=== PATIENT | female | born 1985 | race Caucasian/White ===

== ENCOUNTER 2019-08-06 07:15 | Emergency (ER) | payer MEDICAID, SELFPAY | END 2019-08-06 12:37 | disposition admitted as inpatient to this hospital (09) | LOC: ER 10-09 13:47 | PROVIDERS: Emergency Provider Physician Assistant; Family Provider Family Medicine | DX: F23 Brief psychotic disorder (principal); E87.6 Hypokalemia; F15.10 Other stimulant abuse, uncomplicated; F17.200 Nicotine dependence, unspecified, uncomplicated | CPT/HCPCS: 36415; 80053; 80305; 80307; 81003; 83735; 84703; 85025; 93005; 96372; 99281; 99285; J1200; J2060; J3486 ==

== ENCOUNTER 2019-08-06 07:15 | Inpatient (IN) | payer MEDICAID, SELFPAY ==
[2019-08-06 07:11] VITALS: BP 133/101; PULSE 101; RESP 20; TEMP 36.8; O2SAT 97; BMI 24.3
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
[2019-08-06] MEDS: diphenhydrAMINE 50 mg/mL SDV 1mL IM (07:51)
[2019-08-06] MEDS: LORazepam 2 mg/mL INJ 1 mL IM (07:52)
[2019-08-06] MEDS: ziprasidone 20 mg/mL SDV 10 MG IM (07:52)
[2019-08-06] MEDS: water for injection-sterile 10 ML (07:53)
[2019-08-06 08:03] LABS: Add Urine Microscopic? NO
[2019-08-06 08:08] LABS: Bilirubin Urine Neg (NEGATIVE); Blood Urine Neg (Negative); Glucose Urine UA Norm (Normal); Ketones Urine Negative (Negative); Leukocyte Esterase Urine Negative (Negative); Nitrate Urine Negative (Negative); Protein Urine Neg (Negative); Sulfosalicylic Acid Urine Negative; Urine Appearance Clear (CLEAR); Urine Color Straw (Yellow); Urobilinogen Urine Norm (Negative)
[2019-08-06 08:12] LABS: Amphetamines Screen Urine Negative (Negative); Barbiturates Screen Urine Negative (Negative); Benzodiazepines Screen Urine Negative (Negative); Cocaine Screen Urine Negative (Negative); Methamphetamines Urine Screen Negative (Negative); Methylenedioxymethamphetamine Negative (Negative); Opiate Screen Urine Negative (Negative); Opiate Urine Negative (Negative); PCP Screen Urine Negative (Negative); THC Screen Urine Negative (Negative); Tricyclic Antidepressants UR Negative (Negative)
[2019-08-06 08:55] LABS: Basophils % 0.4 %; Eosinophils # 0.1 10^3/uL (0.0-0.8); Eosinophils % 1.9 %; Hematocrit 36.5 % (37.0-47.0); Hemoglobin 12.2 g/dL (11.5-15.3); Lymphocytes % 20.8 %; Mean Corpuscular HGB Conc 33.4 g/dL (30.0-36.0); Mean Corpuscular Volume 89.7 fL (81-99); Mean Platelet Volume 9.1 fL (7.4-10.4); Monocytes # 0.4 10^3/uL (0.2-0.9); Monocytes % 7.9 %; Neutrophils # 3.3 10^3/uL (1.8-7.7); Nucleated Red Blood Cells % 0 %; Platelet Count 260 10^3/cmm (130-400); Red Blood Count 4.07 10^6/uL (4.1-5.3); Red Cell Distribution Width 11.2 % (12.1-15.1); White Blood Count 4.7 10^3/uL (4.0-10.0)
[2019-08-06 09:09] LABS: Alanine Aminotransferase 36 U/L (0-33); Albumin Level 3.7 g/dL (3.5-5.2); Alkaline Phosphatase 67 IU/L (35-105); Anion Gap 14.9 (5-19); Aspartate Amino Transferase 39 U/L (0-32); Blood Urea Nitrogen 12 mg/dL (6-20); Carbon Dioxide 24 mmol/L (22-29); Chloride 100 mmol/L (98-107); Globulin 2.8 g/dL (1.3-4.6); Glomerular Filtration Rate 181.6 mL/min (90-130); Glucose 124 mg/dL (74-109); Potassium 2.9 mmol/L (3.5-5.1); Sodium 136 mmol/L (136-145); Total Bilirubin 0.5 mg/dL (0.15-1.2); Total Protein 6.5 g/dL (6.6-8.7)
[2019-08-06 09:30] LABS: Acetaminophen < 5.0 ug/mL (10-30); Alcohol Level < 10 mg/dL (0-10); Salicylate < 0.3 mg/dL (3-10)
[2019-08-06 09:35] LABS: Magnesium 1.9 mg/dL (1.7-2.3)
--- NOTE | 2019-08-06 09:36 | ECG_ITS ---
Measurements Intervals [place] Rate: 73 P: 66 [place]: 148 QRS: 36 QRSD: 98 T: 48 QT: 455 QTc: 504 SINUS RHYTHM WITH MARKED SINUS ARRHYTHMIA LEFT ATRIAL ENLARGEMENT [-0.15mV P WAVE IN V1/V2] POSSIBLE RIGHT VENTRICULAR CONDUCTION DELAY [RSR (QR) IN V1/V2] PROLONGED QT INTERVAL Compared to ECG 04/07/2015 20:19:27 Prolonged QT interval now present Electronically Signed On 08-06-2019 22:07:55 COMMERCIAL FINANCE ANALYST by Gloria Mcbride M.D. [email or web address]
[2019-08-06 11:36] VITALS: BP 114/80; PULSE 84; RESP 12; O2SAT 96
--- NOTE | 2019-08-06 13:18 | PC.SOCIAL ---
18 month old daughter, Isela Sierra, was picked up in the Emergency Room by DFS.
[2019-08-06 14:00] VITALS: BP 92/56; PULSE 84; RESP 18; TEMP 36.3; O2SAT 94
[2019-08-06 14:05] LABS: HCG, Serum Qual Negative (Negative)
--- NOTE | 2019-08-06 17:07 | PC.SOCIAL ---
[facility]: Jazmine Reveles with CPS on unit. She reports she will return tomorrow to have her sign releases for them. She would like to have a hair follicle test done, they use [facility], and needed to know the procedure for having this done on the unit. Send e-mail to loading unit tool setter Christian to find this out. Informed Jazmine I would contact her with this information when I found out. Jazmine [phone].
--- NOTE | 2019-08-06 17:26 | PC.NURSE ---
WHEN PT ARRIVED ON UNIT FROM ER,VICE PRESIDENT OF OPERATIONS AND OTHER STAFF REMOVED PAPER SCRUBS AND NOTED WHEN VICE PRESIDENT OF OPERATIONS DID SKIN ASSESSMENT.PULLED UNDERWEAR DOWN TO CHECK SKIN AND NOTED A CLEAR BOTTLE THAT HAD WHAT APPEARED TO BE URINE IN IT. MADE AND ORACLE DRM CONSULTANT TOMAS BUCIO AWARE. PLACED CONTAINER IN A URINE BAG,AND PLACED IN PT BELONGINGS.
[2019-08-06 21:13] VITALS: BP 102/69; PULSE 97; RESP 16; TEMP 36.4; O2SAT 97
[2019-08-07 06:00] VITALS: BP 128/75; PULSE 68; RESP 19; TEMP 36.6
[2019-08-07 08:31] LABS: Barbiturates Screen Urine Negative (Negative); Benzodiazepines Screen Urine Positive (Negative); Cocaine Screen Urine Negative (Negative); Opiate Screen Urine Negative (Negative); PCP Screen Urine Negative (Negative); THC Screen Urine Negative (Negative)
[2019-08-07 08:35] LABS: Amphetamines Screen Urine Positive (Negative)
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
[2019-08-07 14:00] VITALS: BP 94/56; PULSE 84; RESP 20; TEMP 36.9; O2SAT 95
[2019-08-07] MEDS: buprenorphine-naloxone 4-1 mg Film 2 EACH SUBLINGUAL ×2 (15:17→20:57)
[2019-08-07] MEDS: duloxetine 60 mg Capsule PO (17:18)
[2019-08-07 19:52] VITALS: BP 86/51; PULSE 84; RESP 16; TEMP 36.9; O2SAT 96
[2019-08-07] MEDS: doxepin 50 mg Capsule 100 MG PO (20:57)
[2019-08-08 06:00] VITALS: BP 103/68; PULSE 83; RESP 15; TEMP 36.9; O2SAT 97
[2019-08-08] MEDS: duloxetine 60 mg Capsule PO ×2 (09:42→18:14)
[2019-08-08] MEDS: buprenorphine-naloxone 4-1 mg Film 2 EACH SUBLINGUAL ×3 (09:45→21:59)
[2019-08-08 14:00] VITALS: BP 115/69; PULSE 72; RESP 18; TEMP 37; O2SAT 98
--- NOTE | 2019-08-08 14:30 | P.PN_ITS ---
Subjective NPU Subjective: Interval history: I've never been so tired in my life. Cannot have some Adderall. We prescribed it for me over [place]. It would help wake up. Patient also complains about severe lower back pain that is new. She does not know the etiology but just hurts her severely. Vitals/I&O/Wt Last Vital Signs Temp 98.4 F 08/08/19 06:00 Pulse 83 08/08/19 06:00 Resp 15 08/08/19 06:00 BP 103/68 08/08/19 06:00 Pulse Ox 97 08/08/19 06:00 Data NPU : 08/06/19 08:46 08/06/19 08:46 A&P Additional A&P Information Mental Status Exam: Patient is ushered in by staff. Her gait is wobbly and uncertain. It is however symmetric and there are no gross neurological deficits. She is disheveled. She is wearing the same clothing is yesterday. Eye contact is fleeting. She is malodorous. She is not believed to be a reliable informant due to her degree of confusion. Appearance: hygiene is fair; no gross neurological deficits., Speech: Speech is Mumbled. She is difficult to understand. Thought processes: Thought processes are [place]. Judgment is not adequate for safety. She perseverates on the events of the day. Psychotic processes: There is no indication of guarding or paranoia. There is no attention to the internal stimuli. Auditory and visual hallucinations are denied. Judgment: Insight is fair. Problem solving skills are Not adequate for safety. Orientation: The patient is oriented to Herself, the fact that she is in the hospital. And vaguely to time. Memory: She was incapable of engaging in an assessment of her memory. Attention: The patient is alert and Marginally interpersonally engaged. Language: Verbalizations are Somewhat coherent But she is unable to hold a con versation. Fund of knowledge: Fund of knowledge is Poor Affect/Mood: Affect is Irritable with a Unknown mood. Denied suicidal ideation Affective range Constricted Psychosis: perception And reality testing are both severely impaired Diagnoses:Delirium?etiology unknown Amphetamine intoxication Benzodiazepine intoxication Opiate abuse?presumptive Assessment:At this time we are unsure about the nature of her mental illness. We have records that she has been treated recently with a combination of Suboxone, ondansetron, Valium, and Adderall shortly. only Suboxone prescription appears to be active. Treatment plan: Due to the psychiatric conditions and treatment listed in the Assessment and Plan - the patient requires continued hospitalization. Will provide a safe and therapeutic environment for patient.. Will continue inpatient treatment to allow for medication adjustment and monit oring. Will continue q15 min safety checks. Hospital day #2Will primarily treat her symptomatically for signs of amphetamine withdrawal.W ill continue Suboxone and monitor for medication side effects. Monitor patient's mood, sleep, appetite, and behavior closely. Hospital day #3: Patient informed that she would not be receiving Adderall or any stimulant while in the hospital unit. Tylenol replaced with ibuprofen 400 mg every 6 hours when necessary. Encourage patient to participate in individual and group therapeutic sessions on the valiente. Estimated length of stay 5 days The expected benefits and potential side effects of patient's psychiatric medications were discussed with the patient. The patient understands and consents to treatment.CRITERIA FOR DISCHARGE: stable on medications and no longer an im Involuntary Hold Information 96 Hour Hold: 96 Hour Involuntary Admission: Yes 96 Hour Hold Ending Date: 08/12/19 96 Hour Hold Ending Time: 09:30 Attestations NPU Medical Necessity Statement*: Facial remain in the hospital 5 days until the completion of her 96 hour involuntary commitment. Coding Level of Care Code Acute Substitute Teacher for Betsy Ahmadi
[2019-08-08] MEDS: ibuprofen 600 mg Tablet PO (15:27)
--- NOTE | 2019-08-08 16:34 | PC.SOCIAL ---
According to CPS they no longer have custody of child, juvenile office does. This being the case when patient is discharged she has the authority to go and vegetable picker the child as she currently has custody. Per CPS the Juvenile Office said without medical records they had insufficient evidence to keep her from picking up the baby.
[2019-08-08 21:21] VITALS: BP 117/78; PULSE 62; RESP 18; TEMP 36.9; O2SAT 95
[2019-08-08] MEDS: doxepin 50 mg Capsule 100 MG PO (21:58)
[2019-08-09 06:19] VITALS: BP 122/81; PULSE 65; RESP 17; TEMP 36.6; O2SAT 95
[2019-08-09] MEDS: buprenorphine-naloxone 4-1 mg Film 2 EACH SUBLINGUAL ×3 (10:00→21:19)
[2019-08-09] MEDS: duloxetine 60 mg Capsule PO ×2 (10:00→18:07)
[2019-08-09 14:00] VITALS: BP 106/68; PULSE 82; RESP 18; TEMP 37.2; O2SAT 96
[2019-08-09 20:57] VITALS: BP 128/80; PULSE 89; RESP 18; TEMP 36.9; O2SAT 95
[2019-08-09] MEDS: doxepin 50 mg Capsule 100 MG PO (21:18)
[2019-08-10 06:00] VITALS: BP 112/73; PULSE 73; RESP 20; TEMP 36.3; O2SAT 97
[2019-08-10] MEDS: gabapentin 300 mg Capsule PO ×2 (08:40→20:52)
[2019-08-10] MEDS: buprenorphine-naloxone 4-1 mg Film 2 EACH SUBLINGUAL ×3 (08:40→20:52)
[2019-08-10] MEDS: duloxetine 60 mg Capsule PO ×2 (08:40→17:35)
--- NOTE | 2019-08-10 12:36 | P.PN_ITS ---
Subjective NPU Subjective: Interval history: Patient is encountered laying in her bed staring at the ceiling. She has no complaint other than her chronic pain for which she will not take anything that the ibuprofen and Suboxone. Mental Status Exam Cognition: Patient Appearance: Appropriate Level of Consciousness: Awake, Alert and Restless Patient Cognition Impaired: No Ability to Follow Directions: Good Patient Orientation (long list): Person and Place Comprehension Ability: No Impairment Hallucination Type: None Delusion Description: Not Present Thought Process: Appropriate Anxiety: Anxiety Triggers: Loss of Coping Ability Affect: Affect Description: [place] Behavior: Patient Behavior: Withdrawn Speech Pattern: Appropriate Voice Loudness: Severely Loud Vitals/I&O/Wt Last Vital Signs Temp 97.4 F L 08/10/19 06:00 Pulse 73 08/10/19 06:00 Resp 20 H 08/10/19 06:00 BP 112/73 08/10/19 06:00 Pulse Ox 97 08/10/19 06:00 Data NPU : 08/06/19 08:46 08/06/19 08:46 A&P Assessment and plan (1) Amphetamine abuse: Status: Acute Code(s): F15.10 - Other stimulant abuse, uncomplicated (2) Opiate poisoning: Status: Acute Code(s): T40.601A - Poisoning by unspecified narcotics, accidental (unintentional), initial encounter (3) Polysubstance abuse: Status: Acute Code(s): F19.10 - Other psychoactive substance abuse, uncomplicated (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 She does not open her eyes when she speaks to this interviewer. She is not believed to be a reliable informant due to attitude of help rejection and narcissism. When asked about plans, she gives what sounds like idealized plans are simple and 100% guaranteed to be effective. However we c annot confirm anything that she says and her reliability as an informant is previously described. Appearance: hygiene is fair; no gross neurological deficits., Speech: Speech is Mumbled. However she is able to make herself understood. Thought processes: Thought processes are Abstract. Judgment is adequate for safety. Psychotic processes: There is no indication of guarding or paranoia. There is no attention to the internal stimuli. Auditory and visual hallucinations are denied. Judgment: Insight is fair. Problem solving skills are Not adequate for safety. Orientation: The patient is oriented to Herself, the fact that she is in the hospital. And vaguely to time. Memory: She was incapable of engaging in an assessment of her memory. Attention: The patient is alert and Marginally interpersonally engaged. Language: Verbalizations are Somewhat coherent But she is unable to hold a conversation. Fund of knowledge: Fund of knowledge is Poor Affect/Mood: Affect is Irritable with a Unknown mood. Denied suicidal ideation Affective range Constricted Psychosis: perception And reality testing are both severely impaired Diagnoses:Delirium?etiology unknown Amphetamine intoxication Benzodiazepine intoxication Opiate abuse?presumptive Assessment:At this time we are unsure about the nature of her mental illness. We have records that she has been treated recently with a combination of Suboxone, ondansetron, Valium, and Adderall shortly. only Suboxone prescription appears to be active. Treatment plan: Due to the psychiatric conditions and treatment listed in the Assessment and Plan - the patient requires continued hospitalization. Will provide a safe and therapeutic environment for patient.. Will continue inpatient treatment to allow for medication adjustment and monitoring. Will continue q15 min safety checks. Hospital day #2Will primarily treat her symptomatically for signs of amphetamine withdrawal.W ill continue Suboxone and monitor for medication side effects. Monitor patient's mood, sleep, appetite, and behavior closely. Hospital day #3: Patient informed that she would not be receiving Adderall or any stimulant while in the hospital unit. Tylenol replaced with ibuprofen 400 mg every 6 hours when necessary. Encourage patient to participate in individual and group therapeutic sessions on the valiente. Hospital day #4: She is not believed to be a reliable informant due to attitude of help rejection and narcissism. When asked about plans, she gives what sounds like idealized plans are simple and 100% guaranteed to be effective. However we cannot confirm anything that she says and her reliability as an informant is previously described. Patient continues to be compliant Suboxone, Cymbalta, and ibuprofen. She rejects her gabapentin for complaints of pain. She says she would accept hydrocodone. Plan: No changes at this time. Her 96 hour i nvoluntary observation. Will be complete in 45 hours. Estimated length of stay 3 more days The expected benefits and potential side effects of patient's psychiatric medications were discussed with the patient. 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
[2019-08-10 14:00] VITALS: O2SAT 83
[2019-08-10] MEDS: doxepin 50 mg Capsule 100 MG PO (20:52)
[2019-08-10 21:42] VITALS: BP 99/65; PULSE 78; RESP 16; TEMP 37; O2SAT 99
[2019-08-11 06:00] VITALS: BP 89/56; PULSE 76; RESP 16; TEMP 36.5; O2SAT 94
[2019-08-11] MEDS: duloxetine 60 mg Capsule PO ×2 (08:55→17:20)
[2019-08-11] MEDS: buprenorphine-naloxone 4-1 mg Film 2 EACH SUBLINGUAL ×2 (08:55→14:52)
[2019-08-11] MEDS: gabapentin 300 mg Capsule PO ×2 (08:55→21:40)
[2019-08-11 12:53] VITALS: O2SAT 73
--- NOTE | 2019-08-11 13:46 | P.PN_ITS ---
Subjective NPU Subjective: Interval history: The patient's verbal production is almost completely incoherent. She never makes eye contact. She is profoundly obtunded. Interestingly, her DOA urine screen is entirely negative. Her admitting history is profoundly concerning, as she had been found by police, sleeping in her car with her [id number] child. She had apparently slept overnight in 20-degree weather. Mental Status Exam MSE Comments: The patient presents at her stated age but highly disheveled. She is barely able to keep her head up and makes no eye contact. Mood is dysphoric and affect is hyperbolic. She has slurred speech which is very difficult to understand, even after several requests that she repeat herself. Thought processes are disjointed and she does not even want to talk about what happened with her child in the car. She has no insight or judgment and cannot understand why she would be thought to be a danger to her child, much less to herself. I am not sure why this was allowed to progress to this point but we are now at the [place]. The patient's 96-hour hold ends tomorrow morning. This is my first day but there is no doubt that she cannot be safely discharged, upon which she insists. I have asked that we file a petition for a 21-day extension of her involuntary hospitalization. This woman is in danger and does not even realize it. I was unable to address the entire question of endangerment of her 18-year-old child. No matter what I said, she had some argument in position, although it was frequently impossible to understand what the argument might be. Vitals/I&O/Wt Last Vital Signs Temp 97.7 F 08/11/19 06:00 Pulse 76 08/11/19 06:00 Resp 16 08/11/19 06:00 BP 89/56 08/11/19 06:00 Pulse Ox 73 L 08/11/19 12:53 Weight last 48 hrs Weight 147 lb Physical Exam Narrative: EXAM NARRATIVE: The patient is profoundly obtunded and orientation is on shaky grounds. Hygiene is disheveled. Sensorium is cloudy at best. The patient never maintained appropriate eye contact, and repeatedly interrupted me and argued that she should be released to go back to school, an environment in which she would clearly be unable to function. Behavior shows psychomotor agitation. Mood is dysphoric and irritable. Affect is tense, appropriate to her current mood. Thought processes are mostly unknown, as I cannot understand what she is saying. Speech is slurred, and frequently impossible to comprehend. Memory is foggy for recent events. Cognitive functions are grossly impaired. The patient is bereft of insight and judgment and is unable to recognize her problems and has no desire for treatment. Data NPU : 08/06/19 08:46 08/06/19 08:46 A&P Additional A&P Information This patient's diagnosis is not entirely clear. My predecessor's diagnoses were: Delirium?etiology unknown Amphetamine intoxication Benzodiazepine intoxication Opiate abuse?presumptive That there is something grievously wrong with her neurologic function is not in doubt despite her squeaky clean drug screens. I am informed by nursing staff that a container of urine was found on her person in her under. It tested negative. A urine sample actually from the patient was positive for methamphetamine and benzodiazepine. Involuntary Hold Information 96 Hour Hold: 96 Hour Involuntary Admission: Yes 96 Hour Hold Ending Date: 08/12/19 96 Hour Hold Ending Time: 09:30 Attestations NPU Medical Necessity Statement*: This woman is going grossly ill. She is in danger to and so was her child. To put her out on the street would be tantamount to gross negligence. I am not able to say how long she needs to be with us but we have applied for a 21-day extension of her involuntary hospitalization. The belated timings, sadly, is not of my doing; this is my first day on duty and I have only now discovered this patient's grave condition. Time Spent in Patient Care: Greater than 35 minutes (>than 50% of time spent in counselling and/or direct pt care on unit) . A great deal of time was spent researching the agents upon which she is said to have been treated as well as filling out the appropriate judicial petition. I estimate 80 minutes total time was spent with this patient. Coding Level of Care Code Acute Dupligraph Operator for Betsy Ahmadi
[2019-08-11 15:57] LABS: Amphetamines Screen Urine Negative (Negative); Barbiturates Screen Urine Negative (Negative); Benzodiazepines Screen Urine Negative (Negative); Cocaine Screen Urine Negative (Negative); Opiate Screen Urine Negative (Negative); PCP Screen Urine Negative (Negative); THC Screen Urine Negative (Negative)
[2019-08-11 20:43] VITALS: BP 101/60; PULSE 88; RESP 16; TEMP 37.2; O2SAT 94
[2019-08-11] MEDS: doxepin 50 mg Capsule 100 MG PO (21:39)
[2019-08-12 07:01] VITALS: BP 75/49; PULSE 84; RESP 16; TEMP 36.7; O2SAT 95
[2019-08-12] MEDS: duloxetine 60 mg Capsule PO ×2 (09:49→17:03)
[2019-08-12] MEDS: gabapentin 300 mg Capsule PO ×3 (09:50→20:50)
--- NOTE | 2019-08-12 12:52 | PM.NPN ---
Subjective NPU Subjective: Interval history: The patient has remained incoherent, even to her friend of many years who is on the patient's HIPAA release list. Now that we know she was using smuggled clean urine and actually has methamphetamine and marijuana in her DOA this seems understandable. However the severity of her impairment is remarkable. She does not remember having seen me. Medications: Reviewed: Yes Mental Status Exam MSE Comments: The patient presents at her stated age but is again disheveled. She can now keep her head up but makes no eye contact. Mood is dysphoric and affect is hyperbolic. She has slurred speech which is very difficult to understand, even by a longtime friend. Thought processes are disjointed and she avoids the subject of what happened with her child in the car. She has no insight or judgment and cannot understand why she would be thought to be a danger to her child, much less to herself. I am not sure why this was allowed to progress to this point but we have now filed for a 21-day extension, which is clearly warranted. There is no doubt that she cannot be safely discharged, which she continuously demands. This woman remains in danger and does not even realize it. I tried to address the endangerment of her 18-year-old child. No matter what I said, she had some argument in position, although it was frequently impossible to understand what the argument might be. Vitals/I&O/Wt Last Vital Signs Temp 98.0 F 08/12/19 07:01 Pulse 84 08/12/19 07:01 Resp 16 08/12/19 07:01 BP 75/49 08/12/19 07:01 Pulse Ox 95 08/12/19 07:01 Weight last 48 hrs Weight 147 lb Physical Exam Narrative: EXAM NARRATIVE: The patient appeared thin but adequately nourished and normally developed. Vital signs as documented. Head exam is unremarkable. No scleral icterus or corneal arcus noted. Neck is without jugular venous distension, thyromegaly, or carotid bruits. Lungs are clear to auscultation and percussion. Heart normal sinus rhythm, no murmurs. Abdomen bland. Extremities no limitation of motion, no lower extremity edema. Neurological cranial nerves II to XII intact. No cerebellar, sensory or motor deficit noted. Mental status as above. Data NPU : 08/06/19 08:46 08/06/19 08:46 A&P Additional A&P Information It is now clear that the patient is delirious from methamphetamine and possibly other toxicity. Appropriate pharmacotherapy and detox are under way. Involuntary Hold Information 96 Hour Hold: 96 Hour Involuntary Admission: Yes 96 Hour Hold Ending Date: 08/12/19 96 Hour Hold Ending Time: 09:30 21 Day Hold: Comments: We were able to get a request down for a 21-day extension. We await the court's indulgence Attestations NPU Medical Necessity Statement*: This woman remains in the throes of delirium. She is incoherent even to a longtime friend. I anticipate 5 to 7 days additional hospitalization. Time Spent in Patient Care: Greater than 35 minutes (>than 50% of time spent in counselling and/or direct pt care on unit). Coding Level of Care Code Acute Sap Senior Developer for Betsy Ahmadi
[2019-08-12 13:29] VITALS: BP 90/54; PULSE 78; RESP 18; TEMP 36.7; O2SAT 98
[2019-08-12] MEDS: buprenorphine-naloxone 4-1 mg Film 2 EACH SUBLINGUAL ×2 (15:36→20:50)
[2019-08-12 19:44] VITALS: BP 103/64; PULSE 85; RESP 16; TEMP 36.7; O2SAT 95
[2019-08-12] MEDS: doxepin 50 mg Capsule 100 MG PO (20:51)
--- NOTE | 2019-08-12 20:57 | P.PN_ITS ---
Subjective NPU Subjective: Interval history: This note was done for August 09, 2019. Pt complains of fatigue, malaise and demanding to be discharged becasue she is concerned about her daughter living with the child's father. Vitals/I&O/Wt Last Vital Signs Temp 98.1 F 08/12/19 19:44 Pulse 85 08/12/19 19:44 Resp 16 08/12/19 19:44 BP 103/64 08/12/19 19:44 Pulse Ox 95 08/12/19 19:44 Weight last 48 hrs Weight 66.678 kg Data NPU : 08/06/19 08:46 08/06/19 08:46 A&P Additional A&P Information Mental Status Exam: Patient is ushered in by staff. Her gait is wobbly and uncertain. It is however symmetric and there are no gross neurological deficits. She is disheveled. She is wearing the same clothing is yesterday. Eye contact is fleeting. She is malodorous. She is not believed to be a reliable informant due to her degree of confusion. Appearance: hygiene is fair; no gross neurological deficits., Speech: Speech is Mumbled. She is difficult to understand. Thought processes: Thought processes are [place]. Judgment is not adequate for safety. She perseverates on the events of the day. Psychotic processes: There is no indication of guarding or paranoia. There is no attention to the internal stimuli. Auditory and visual hallucinations are denied. Judgment: Insight is fair. Problem solving skills are Not adequate for safety. Orientation: The patient is oriented to Herself, the fact that she is in the hospital. And vaguely to time. Memory: She was incapable of engaging in an assessment of her memory. Attention: The patient is alert and Marginally interpersonally engaged. Language: Verbalizations are Somewhat coherent But she is unable to hold a conversation. Fund of knowledge: Fund of knowledge is Poor Affect/Mood: Affect is Irritable with a Unknown mood. Denied suicidal ideation Affective range Constricted Psychosis: perception And reality testing are both severely impaired Diagnoses:Delirium?etiology unknown Amphetamine intoxication Benzodiazepine intoxication Opiate abuse?presumptive Assessment:At this time we are unsure about the nature of her mental illness. We have records that she has been treated recently with a combination of Subo xone, ondansetron, Valium, and Adderall shortly. only Suboxone prescription appears to be active. Treatment plan: Due to the psychiatric conditions and treatment listed in the Assessment and Plan - the patient requires continued hospitalization. Will provide a safe and therapeutic environment for patient.. Will continue inpatient treatment to allow for medication adjustment and monitoring. Will continue q15 min safety checks. Hospital day #2Will primarily treat her symptomatically for signs of amphetamine withdrawal.W ill continue Suboxone and monitor for medication side effects. Monitor patient's mood, sleep, appetite, and behavior closely. Hospital day #3: Patient informed that she would not be receiving Adderall or any stimulant while in the hospital unit. Tylenol replaced with ibuprofen 400 mg every 6 hours when necessary. Encourage patient to participate in individual and group therapeutic sessions on the valiente. HD#4: patient is not participating in any group activities. She is not actively engaging with decisions for her care. She insists that she just fell asleep in the car and that we are holding her unfailry. PLAN: Patientrefusing treatment. She intends to remain until the completion of her 96 hour hold and then will sign out AMA. Estimated length of stay 5 days The expected benefits and potential side effects of patient's psychiatric medications were discussed with the patient. The patient understands and consents to treatment.CRITERIA FOR DISCHARGE: stable on medications and no longer an im Involuntary Hold Information 96 Hour Hold: 96 Hour Involuntary Admission: Yes 96 Hour Hold Ending Date: 08/12/19 96 Hour Hold Ending Time: 09:30 Attestations U Medical Necessity Statement*: Patient will remain until the completion of her 96v hour hold. (August 09, 2019) Coding Level of Care Code Acute Associate Data Scientist for Betsy Ahmadi
[2019-08-13 06:00] VITALS: BP 97/61; PULSE 69; RESP 16; TEMP 36.8; O2SAT 96
[2019-08-13] MEDS: duloxetine 60 mg Capsule PO ×2 (08:31→17:21)
[2019-08-13] MEDS: gabapentin 300 mg Capsule PO ×3 (08:31→21:05)
[2019-08-13] MEDS: buprenorphine-naloxone 4-1 mg Film 2 EACH SUBLINGUAL ×3 (08:31→21:05)
--- NOTE | 2019-08-13 10:53 | PC.SOCIAL ---
Hearin Day Hearing scheduled for August 142019 at 3:00pm in the Probate Division of the [facility] of [facility].
--- NOTE | 2019-08-13 12:14 | PM.NPN ---
Subjective NPU Subjective: Interval history: The patient is at least comprehensible today. Her speech is immensely pressured and she does not really make a lot of sense. It would seem that she wants to go back to the status quo from which this situation arose. It seems unwise to me. The patient mentions Dr. Joanne Loyola, a psychiatrist in [place], to whom she goes to get her Adderall prescription. I consulted at length with her and also with Amber, our tank house operator helper. The former shares my misgivings about the patient's use of Adderall. Conversely, Amber emphatically affirms that she functions better on Adderall and was making A's and B's at school. I told the patient she looks like a classical manic to me. Medications: Reviewed: Yes Mental Status Exam MSE Comments: The patient is alert and oriented to person, place, time, and situation. Hygiene is good. Sensorium is less foggy. The patient maintains better eye contact, but is is insistent and wants me to give her Adderall. Behavior shows considerable psychomotor agitation. Mood is agitated and chaotic. Affect is completely commensurate with this. Thought processes are very scattered and racing. Speech is pressured and given to flight of ideas. There is no latency of response. The patient denies auditory or visual hallucinations or delusions. The patient denies suicidal or homicidal ideation, plan or intent. Memory is intact for recent and remote events. Fund of knowledge is adequate given vocabulary. Insight and judgment are seriously impaired. Vitals/I&O/Wt Last Vital Signs Temp 98.3 F 08/13/19 06:00 Pulse 69 08/13/19 06:00 Resp 16 08/13/19 06:00 BP 97/61 08/13/19 06:00 Pulse Ox 96 08/13/19 06:00 Physical Exam Narrative: EXAM NARRATIVE: The patient appeared thin but adequately nourished and normally developed. Vital signs as documented. Head exam is unremarkable. No scleral icterus or corneal arcus noted. Neck is without jugular venous distension, thyromegaly, or carotid bruits. Lungs are clear to auscultation and percussion. Heart normal sinus rhythm, no murmurs. Abdomen bland. Extremities no limitation of motion, no lower extremity edema. Neurological cranial nerves II to XII intact. No cerebellar, sensory or motor deficit noted. Mental status as above. Data NPU : 08/06/19 08:46 08/06/19 08:46 A&P Assessment and plan (1) Amphetamine abuse: This is a complicated case and requires referral to an addictionologist. Status: Acute Code(s): F15.10 - Other stimulant abuse, uncomplicated (2) Acute psychosis: Psychosis is waning and requires no additional intervention Status: Acute Code(s): F23 - Brief psychotic disorder (3) Polysubstance abuse: Rehab and additionalology. Status: Acute Code(s): F19.10 - Other psychoactive substance abuse, uncomplicated Involuntary Hold Information 96 Hour Hold: 96 Hour Involuntary Admission: Yes 96 Hour Hold Ending Date: 08/12/19 96 Hour Hold Ending Time: 09:30 21 Day Hold: Comments: We will await a hearing date for a petition for 21-day hold. Attestations NPU Medical Necessity Statement*: This patient's mental status is scrambled. Scattered all over the place she cannot function and is pending a 21-day hold. I anticipate at least 7-10 midnights additional hospital stay. Time Spent in Patient Care: Greater than 35 minutes (>than 50% of time spent in counselling and/or direct pt care on unit). I spent at least an hour working on this patient's case both [id number] and in consultation with collateral history givers. Coding Level of Care Code Acute Polymerization Engineer for Betsy Ahmadi Diagnoses Amphetamine abuse F15.10 Acute psychosis F23 Polysubstance abuse F19.10
[2019-08-13 14:00] VITALS: BP 108/71; PULSE 86; RESP 18; TEMP 36.7; O2SAT 96
[2019-08-13] MEDS: doxepin 50 mg Capsule 100 MG PO (21:05)
[2019-08-13 22:00] VITALS: BP 103/64; PULSE 91; RESP 22; TEMP 37.1; O2SAT 93
[2019-08-14 06:00] VITALS: BP 98/60; PULSE 62; RESP 16; TEMP 36.6; O2SAT 92
--- NOTE | 2019-08-14 08:52 | PM.NDC ---
Diagnoses at Discharge Discharge Diagnosis (1) Amphetamine abuse: Status: Acute Problem details: Patient is actually on Adderall, combination of amphetamine salts (2) Acute psychosis: Status: Acute Problem details: Completely resolved the patient apparently got some adulterated substance of abuse (3) Polysubstance abuse: Status: Acute Problem details: The patient really needs to enter recovery. Reason for Visit Reason for Visit: Reason For Visit: acute pyschosis Hospital Course Discharge Summary For the first several days patient was completely confused and unable to stay awake. Her speech was garbled, slurred and completely incomprehensible. She was disoriented and did not know why she was here. Involuntary Hold Information 96 Hour Hold: 96 Hour Involuntary Admission: Yes 96 Hour Hold Ending Date: 08/12/19 96 Hour Hold Ending Time: 09:30 21 Day Hold: Comments: We had filed for a 21-day extension of involuntary hospitalization. However, the patient, around the fifth or sixth day, began to rapidly clear. We are now resending our petition for a 21-day hold. Mental Status Exam MSE Comments: The patient is alert and oriented to person, place, time, and situation. Hygiene is disheveled. Sensorium is spotty but she actually understands what we tell her and what's going on around her. The patient maintains appropriate eye contact, is cooperative and relates well to me. Behavior shows no psychomotor agitation. Mood is calm and euthymic. Affect is appropriate to her current mood. Thought processes are slightly scattered but they are free of racing, blocking or looseness of association. Speech is of normal rate and volume, without dysarthria, aprosody or pressure. There is no inordinate latency of response. The patient denies auditory or visual hallucinations or delusions. The patient denies suicidal or homicidal ideation, plan or intent. She exhibits no assaultive behavior this morning. Memory is intact for recent and remote events. Fund of knowledge is adequate given vocabulary. Insight and judgment were deemed to be good given the recognition of problems and desire for treatment. The patient has completely resolved the utter confusion in which she found herself. Physical Exam Narrative: EXAM NARRATIVE: The patient appeared thin but adequately nourished and normally developed. Vital signs as documented. Head exam is unremarkable. No scleral icterus or corneal arcus noted. Neck is without jugular venous distension, thyromegaly, or carotid bruits. Lungs are clear to auscultation and percussion. Heart normal sinus rhythm, no murmurs. Abdomen bland. Extremities no limitation of motion, no lower extremity edema. Neurological cranial nerves II to XII intact. No cerebellar, sensory or motor deficit noted. Mental status as above. Discharge Data Vitals: Last Vital Signs Temp 97.9 F 08/14/19 06:00 Pulse 62 08/14/19 06:00 Resp 16 08/14/19 06:00 BP 98/60 08/14/19 06:00 Pulse Ox 92 08/14/19 06:00 Discharge Plan Discharge Patient Disposition: Home, Self-Care Condition: Stable Prescriptions: New doxepin 50 mg Capsule 100 mg PO BEDTIME Qty: 30 RF: 1 gabapentin 300 mg Capsule 300 mg PO TID Qty: 90 RF: 1 Continued ibuprofen 800 mg Tablet 800 mg PO TID PRN (Reason: Pain, Moderate) Qty: 90 RF: 1 propranolol 20 mg Tablet 20 mg PO TID PRN (Reason: Anxiety) Qty: 90 RF: 1 duloxetine 60 mg Capsule,Delayed Release(Dr/Ec) 60 mg PO BID Qty: 60 RF: 1 Discontinued ondansetron 4 mg Tablet,Disintegrating 4 mg PO Q8H PRN (Reason: Nausea And Vomiting) RF: 0 buprenorphine-naloxone [Suboxone] 8-2 mg Film 1 film BUCCAL TID RF: 0 Discharge Orders: Discharge Order (Routine); Ordered 08/14/19 Ordered By: Matt Gutierrez Referrals: Dr. Loyola [Other] - 09/04/19 7:40 am (Please arrive 10 minutes early.) [facility] [Other] - 09/04/19 3:00 pm (Please arrive 10 minutes early.) [facility] [Outside] (Please follow up for a walk in assessment withing 3-5 days of hospital discharge for a walk in. Walk in assessments are done Monday-Monday from 7:30am-2:00pm, it is better to arrive as early as possible to ensure you can be seen.) [facility] [Outside] (Follow up for outpatient substance abuse rehab.) David Saunders MD [Primary Care Provider] - (Follow up as needed) Discharge Diet: Usual diet Discharge Activity: Resume usual activity Discharge Attestations NPU Time Spent in Discharge Care*: greater than 30 min Specific Discharge Activities: Specific discharge activities: educating patient, discussing with pcp/other providers, discussing with watch case polisher/social workers/dc planners, documenting/other paperwork and evaluating patient/reviewing data Coding Level of Care Code Acute Third Helper for [facility] Fwd Diagnoses Amphetamine abuse F15.10 Acute psychosis F23 Polysubstance abuse F19.10
[2019-08-14] MEDS: gabapentin 300 mg Capsule PO (09:35)
[2019-08-14] MEDS: buprenorphine-naloxone 4-1 mg Film 2 EACH SUBLINGUAL (09:35)
[2019-08-14] MEDS: duloxetine 60 mg Capsule PO (09:35)
[2019-08-14 09:48] VITALS: BP 98/60; PULSE 62; RESP 16; TEMP 36.6; O2SAT 92
--- NOTE | 2019-09-03 14:14 | P.PN_ITS ---
Subjective NPU Subjective: Interval history: Note for August 09 2019: patient refuses to get out of bed this morning. She refuses for interaction with his physician. Mental Status Exam MSE Comments: Mental Status Exam: patient is encountered lying in bed in no apparent distress. She refuses for verbal interaction. Appearance: hygiene is fair; no gross neurological deficits., AIMS=0 Speech: patient refuses verbal interaction Thought processes: unable to assess Psychotic processes: There is no indication of guarding or paranoia. There is no attention to the internal stimuli. Judgment: Insight is poor. Problem solving skills are unable to be assessed Orientation: unableto assess Memory: unable to assess Affect/Mood: Aunable to assess Psychosis: unable to assess Cognition: Patient Appearance: Appears Older than Age and Disheveled/Poor Hygiene Level of Consciousness: Awake, Alert and Restless Patient Cognition Impaired: No Ability to Follow Directions: Good Patient Orientation (long list): Person and Place Comprehension Ability: No Impairment Hallucination Type: None Delusion Description: Not Present Thought Process: Appropriate Anxiety: Anxiety Triggers: Loss of Coping Ability Affect: Affect Description: Flat Behavior: Patient Behavior: Appropriate and Cooperative Speech Pattern: Appropriate Voice Loudness: Severely Loud Vitals/I&O/Wt Last Vital Signs Temp 97.9 F 08/14/19 09:48 Pulse 62 08/14/19 09:48 Resp 16 08/14/19 09:48 BP 98/60 08/14/19 09:48 Pulse Ox 92 08/14/19 09:48 Data NPU : 08/06/19 08:46 08/06/19 08:46 A&P Assessment and plan (1) Amphetamine abuse: This is a complicated case and requires referral to an addictionologist. Status: Acute Code(s): F15.10 - Other stimulant abuse, uncomplicated (2) Acute psychosis: Psychosis is waning and requires no additional intervention Status: Acute Code(s): F23 - Brief psychotic disorder (3) Polysubstance abuse: Rehab and additionalology. Status: Acute Code(s): F19.10 - Other psychoactive substance abuse, uncomplicated Additional A&P Information Diagnoses:Delirium?etiology unknown Amphetamine intoxication Benzodiazepine intoxication Opiate abuse?presumptive Assessment:At this time we are unsure about the nature of her mental illness. We have records that she has been treated recently with a combination of Suboxone, ondansetron, Valium, and Adderall shortly. only Suboxone prescription appears to be active. Treatment plan: Due to the psychiatric conditions and treatment listed in the Assessment and Plan - the patient requires continued hospitalization. Will provide a safe and therapeutic environment for patient.. Will continue inpatient treatment to allow for medication adjustment and monitoring. Will continue q15 min safety checks. Hospital day #2Will primarily treat her symptomatically for signs of amphetamine withdrawal.W ill continue Suboxone and monitor for medication side effects. Monitor patient's mood, sleep, appetite, and behavior closely. Hospital day #3: Patient informed that she would not be receiving Adderall or any stimulant while in the hospital unit. Tylenol replaced with ibuprofen 400 mg every 6 hours when necessary. Encourage patient to participate in individual and group therapeutic sessions on the valiente. HD#4: patient is not participating in any group activities. She is not actively engaging with decisions for her care. She insists that she just fell asleep in the car and that we are holding her unfairly. PLAN: Patient refusing treatment. She intends to remain until the completion of her 96 hour hold and then will sign out AMA. HD#5: no significant change Estimated length of stay 5 days The expected benefits and potential side effects of patient's psychiatric medications were discussed with the patient. The patient understands and consents to treatment.CRITERIA FOR DISCHARGE: stable on medications and no longer an im Involuntary Hold Information 96 Hour Hold: 96 Hour Involuntary Admission: Yes 96 Hour Hold Ending Date: 08/12/19 96 Hour Hold Ending Time: 09:30 Attestations NPU Medical Necessity Statement*: patient to remain in hospital at least another 3 days until she can be assessed for imminent risk. Coding Level of Care Code Acute Blender Machine Operator for [facility] Diagnoses Amphetamine abuse F15.10 Acute psychosis F23 Polysubstance abuse F19.10
== END 2019-08-14 12:01 | disposition home or self-care (01) | DRG 897 ==
LOC: ER 10:02 → NP 10:31
PROVIDERS: Admitting Provider Psychiatry & Neurology Psychiatry; Emergency Provider Physician Assistant; Family Provider Family Medicine; PCP Family Medicine; Visit Provider Psychiatry & Neurology Psychiatry
DX: F15.129 Other stimulant abuse with intoxication, unspecified (principal); F19.129 Other psychoactive substance abuse with intoxication, unspecified; F11.10 Opioid abuse, uncomplicated; R41.0 Disorientation, unspecified; F29 Unspecified psychosis not due to a substance or known physiological condition
CPT/HCPCS: 12345; 36415; 80053; 80305; 80307; 81003; 83735; 84703; 85025; 93005; 96372; 99281; J0573; J1200; J2060; J3486

== ENCOUNTER 2019-08-29 03:41 | Emergency (ER) | payer MEDICAID, SELFPAY ==
--- NOTE | 2019-08-29 03:44 | ED_ITS ---
Entered by Magalie Laurent, acting as scribe for Shoaib Salcido MD HPI - Extremity Problem General: Chief complaint: Extremity Injury, Lower Stated complaint: KNOT ON LEFT KNEE Time Seen by Provider: 08/29/19 03:43 Source: patient Mode of arrival: ambulatory History of Present Illness: HPI Narrative: 33 y/o female presents to the ED with complaint of left knee tenderness. Pt states she has had a knot on her knee for the past week. It has become increasingly difficult for her to go up and down her stairs. MD Complaint: extremity pain Onset (ago): week(s) (1) Pain Consistency: constant Location: left, lower extremity and knee Radiation: none Exacerbating factors: range of motion Associated symptoms: Deny chest pain, fever(s) or rash Review of Systems Const: Denies: fever, chills, body aches or change in appetite Eyes: Denies: blurry vision or eye discomfort ENMT: Denies: throat pain or dental pain Card: Denies: chest pain Resp: Denies: shortness of breath GI: Denies: abdominal pain, nausea, vomiting or diarrhea : Denies: painful urination Musc: Reports: joint pain (left knee); Denies: neck pain or back pain Skin/Breast: Denies: rash Neuro: Denies: headache Psych: Denies: depression Yusef/Lymph: Denies: easy bruising All/Imm: Denies: hives PFSH ED PFSH: Social History Smoking and tobacco status: current every day smoker Female Reproductive History: Date of last menstrual period: 08/06/19 Physical Exam Const: COMMON NORMALS: no apparent distress and oriented x3 HENMT: COMMON NORMALS: normocephalic and head/scalp atraumatic HEAD & SCALP: normocephalic and atraumatic Eye: COMMON NORMALS: PERRL and EOMs intact bilaterally PUPIL: Yes PERRL Neck/C-Spine: COMMON NORMALS: full ROM and supple Chest: COMMONS NORMALS: inspection of chest normal and palpation of chest normal Resp: COMMON NORMALS: normal respiratory effort, no retractions, no use of accessory muscles and clear to auscultation bilaterally AUSCULTATION: clear to auscultation bilaterally Cardio: COMMON NORMALS: regular rate, regular rhythm and no murmurs RATE: regular rate RHYTHM: regular rhythm GI: COMMON NORMALS: normal to inspection, nondistended, normoactive bowel sounds, soft to palpation, non-tender and no masses PALPATION: Yes soft Extremity: COMMON NORMALS: normal to inspection LEFT LOWER EXTREMITY: Yes knee joint Left knee: Yes palpation (tenderness) and No ROM Neuro: COMMON NORMALS: oriented x3, moves all extremities and no focal motor deficits Psych: COMMON NORMALS: mental status grossly normal, thought process normal and cooperative THOUGHT PROCESS: normal thought process Skin: COMMON NORMALS: no rashes or lesions noted and no wounds GENERAL SKIN EXAM: no rashes or lesions noted Course Vital Signs: Vital signs: Vital Signs Temperature 98.2 F 08/29/19 03:45 Pulse Rate 108 H 08/29/19 03:45 Respiratory Rate 16 08/29/19 03:45 Blood Pressure 139/88 08/29/19 03:45 Pulse Oximetry 94 08/29/19 03:45 MDM - Extremity (Nontraumatic) MDM Narrative: Medical decision making narrative: Patient presents here with knee pain is likely muscular in nature. Patient has no signs of septic joint. Patient's x-ray here is negative. She is stable for discharge will place on Naprosyn. Imaging Data^: XR LEFT KNEE: My impression: no acute fx Discharge Plan Discharge Patient Disposition: Home, Self-Care Clinical Impression: Knee pain, left Qualifiers: Chronicity: acute Qualified Code(s): M25.562 - Pain in left knee Condition: Stable Prescriptions: New EC-Naprosyn 500 mg tablet,delayed release (DR/EC) 500 mg PO BID PRN (Reason: pain) Qty: 20 RF: 0 No Action Adderall 20 mg Tablet 20 mg PO BID RF: 0 buprenorphine-naloxone 8-2 mg Tablet, Sublingual 1 tab SUBLINGUAL TID RF: 0 Abilify 5 mg Tablet 5 mg PO DAILY RF: 0 Cymbalta 60 mg Capsule,Delayed Release(Dr/Ec) 60 mg PO DAILY RF: 0 Discharge Orders: Discharge Order (Routine); Ordered 08/29/19 Ordered By: Shoaib Salcido Referrals: David Saunders MD [Family Provider] - 4-7 days Discharge Diet: Advance as tolerated Discharge Activity: Resume usual activity Patient Instructions: Knee Pain (ED) Coding Level of Care Code ED Casino Attendant for [facility] Fwd Exam Problem Focused The documentation recorded by the scribMehran braxton Ashley, accurately reflects the service I personally performed and the decisions made by , Shoaib Salcido MD Aug 29, 2019 03:41
[2019-08-29 03:45] VITALS: BP 139/88; PULSE 108; RESP 16; TEMP 36.8; O2SAT 94; BMI 23.0
--- NOTE | 2019-08-29 03:47 | XR_ITS ---
WS: [id number] KNEE LEFT TECHNIQUE: 3 views of the left knee CLINICAL INFORMATION: pain COMPARISON: None. FINDINGS: Left knee is normal in appearance. No evidence of acute fracture dislocation. No significant effusion . Patella is normal. XR/XR knee LT 3V* [id number] IMPRESSION: Normal left knee.
[2019-08-29] MEDS: ketorolac 60 mg/2 mL INJ IM (04:02)
== END 2019-08-29 04:37 | disposition home or self-care (01) ==
PROVIDERS: Emergency Provider Emergency Medicine; Family Provider Family Medicine
DX: M25.562 Pain in left knee (principal); F17.200 Nicotine dependence, unspecified, uncomplicated
CPT/HCPCS: 73562; 96372; 99281; 99283; A9270; J1885

== ENCOUNTER → 2020-07-13 15:22 | Outpatient (BNVA) | payer MEDICAID, SELFPAY | PROVIDERS: Family Provider Family Medicine; Visit Provider Nurse Practitioner Family | DX: Z20.828 Contact with and (suspected) exposure to other viral communicable diseases (principal); J06.9 Acute upper respiratory infection, unspecified | CPT/HCPCS: 87635 ==

== ENCOUNTER 2021-04-25 17:47 | Emergency (ER) | payer MEDICAID, SELFPAY ==
[2021-04-25 18:04] VITALS: BP 139/94; PULSE 102; RESP 18; TEMP 35.7; O2SAT 95; BMI 26.4
--- NOTE | 2021-04-25 18:30 | ED_ITS ---
HPI - Extremity Problem General: Chief complaint: Extremity Problem,Nontraumatic Stated complaint: SEEN FOR GOUT 2 DAYS AGO HOBSON: WORSE TODAY Time Seen by Provider: 04/25/21 17:58 History of Present Illness: HPI Narrative: Patient is a 35-year-old female who comes to the ED with left wrist pain. Patient says about 3 or 4 days ago she was sitting down on the ground and she went to get up and lifted her body up using her left arm and felt a burning pain in her left wrist. Since then she has had pain in her wrist with some swelling. She rates her pain currently an 8 out of 10. She went in to [place] 2 days ago and they did not perform any x-rays and told her it might be gout and gave her some allopurinol. She is here in the ED today because of the pain has stayed the same and not improving. Associated symptoms: Deny chest pain, fever(s) or rash Review of Systems Const: Denies: fever(s), chills or fatigue Eyes: Denies: change in vision or eye discomfort ENMT: Denies: throat pain, odynophagia, nasal discharge or nasal congestion Card: Denies: chest pain, palpitations, edema, swelling of feet/ankles, dyspnea on exertion or orthopnea Resp: Denies: dyspnea, productive cough or non-productive cough GI: Denies: abdominal pain, nausea, vomiting, diarrhea, constipation or hematochezia : Denies: flank pain, dysuria or hematuria Musc: Reports: extremity pain (left wrist) and extremity swelling (left wrist); Denies: neck pain or back pain Skin/Breast: Denies: rash or new lesions Neuro: Denies: headache(s), numbness in extremities or weakness in extremities PFS ED PFSH: Family History Father Hypertension Grandfather Diabetes maternal Heart disease maternal Grandmother Stroke paternal great Family/Other FH: mental illness cousin Denies family history of Clotting disorder Anesthesia complication Bleeding disorder Social History Smoking and tobacco status: current every day smoker cigarettes [ Other cigarette details: 3 per day ] Alcohol intake: current Alcohol intake frequency: holidays/special occasions only Alcohol type: wine Female Reproductive History: Date of last menstrual period: 04/25/21 Physical Exam Const: COMMON NORMALS: no acute distress, patient oriented x3 and alert GENERAL APPEARANCE: cooperative and comfortable HENMT: COMMON NORMALS: normocephalic HEAD & SCALP: normocephalic MOUTH: Normal oral and palatal mucosa present THROAT: posterior oropharynx normal and uvula midline Neck/C-Spine: COMMON NORMALS: supple GENERAL: Yes normal visual inspection Resp: COMMON NORMALS: normal respiratory effort, No retractions, No use of accessory muscles and clear to auscultation bilaterally AUSCULTATION: clear to auscultation bilaterally Cardio: COMMON NORMALS: regular rate, regular rhythm, S1 normal heart sound present, S2 normal heart sound present, No gallops present (Cardio), No clicks present (Cardio), No murmurs present (Cardio) and Peripheral pulses 2+ throughout RATE: regular rate RHYTHM: regular rhythm HEART SOUNDS: S1 normal heart sound present and S2 normal heart sound present PERIPHERAL PULSES: Peripheral pulses 2+ throughout GI: COMMON NORMALS: Normal to inspection, nondistended, normoactive bowel sounds present, Soft to palpation, non-tender and no masses PALPATION: Yes So ft to palpation : COMMON NORMALS: Yes no CVA tenderness BLADDER/KIDNEY EXAM: Yes no CVA tenderness Back/Pelvis: COMMON NORMALS: no CVA tenderness Extremity: GENERAL: Yes normal exam except as noted LEFT UPPER EXTREMITY: Yes wrist Left wrist: Yes inspection (unremarkable), Yes palpation (tenderness over radial aspect), Yes ROM (full range of motion) and Yes neurovascular exam (intact) Neuro: COMMON NORMALS: patient oriented x3 and moves all extremities SENSORIUM/ORIENTATION: Yes alert Skin: GENERAL SKIN EXAM: dry skin Course Vital Signs: Vital signs: Vital Signs Temperature 96.3 F L 04/25/21 18:04 Pulse Rate 78 04/25/21 19:22 Respiratory Rate 16 04/25/21 19:22 Blood Pressure 139/94 04/25/21 18:04 Pulse Oximetry 97 04/25/21 19:22 MDM - Extremity (Nontraumatic) Imaging Data^: Xray Ortho: Attestation: I personally reviewed and interpreted this imaging study as follows: Radiologist's impression: [address] [place], [place] [address] ReportSigned Patient: Josselin Sierra #: [id number]: 1985Acct#:[id number]/Sex: 35 / FADM Date: 04/25/21Loc: ERRoom/Bed:Attending Dr: Ordering Provider/Ordering MD: Montez Gunter Date of Service: 04/25/21 Procedure(s): XR wrist LT min 3V* [id number] Accession Number(s): [id number] Report Number: [id number] PROCEDURE INFORMATION: Exam: XR Left Wrist Exam date and time: 04/25/2021 6:31 PM Age: 35 years old Clinical indication: Pain; Wrist; Left; Additional info: Left wrist pain TECHNIQUE: Imaging protocol: XR Left wrist. Views: 3 or more views. COMPARISON: No relevant prior studies available. FINDINGS: Bones/joints: No acute fracture or dislocation. Soft tissues: There is mild soft tissue edema. XR/XR wrist LT min 3V* [id number] IMPRESSION: No acute bony abnormality. Radiation Dose CTDIVOL = (mGy): DLP = (mGy-cm) Dictated By:Freddy Thomas By:Freddy Thomas Date/Time:04/25/212104DD/ 183 Discharge Plan Discharge Patient Disposition: Home Clinical Impression: Left wrist pain Condition: Stable Prescriptions: New Celebrex 100 mg capsule 100 mg PO BID PRN (Reason: pain) Qty: 20 RF: 0 prednisone 20 mg tablet 20 mg PO BID 5 Days Qty: 10 RF: 0 No Action albuterol sulfate [ProAir HFA] 90 mcg/actuation HFA aerosol inhaler 2 puff INHALATION Q6H PRN (Reason: shortness of breath or wheezing) Qty: 8.5 RF: 0 buprenorphine-naloxone 8-2 mg tablet, sublingual 1 tab sublingual DAILY RF: 0 ofloxacin 0.3 % drops 2 drp ophthalmic (eye) BID 7 Days Qty: 5 RF: 0 Adderall 20 mg Tablet 20 mg PO BID RF: 0 buprenorphine-naloxone 8-2 mg Tablet, Sublingual 1 tab SUBLINGUAL TID RF: 0 Abilify 5 mg Tablet 5 mg PO DAILY RF: 0 Cymbalta 60 mg Capsule,Delayed Release(Dr/Ec) 60 mg PO DAILY RF: 0 Discharge Orders: Discharge ED (Routine); Ordered 04/25/21 Ordered By: Montez Gunter Discharge Diet: Regular Discharge Activity: Resume usual activity Activity Restrictions/Additional Instructions: Follow-up with medical provider as directed. Take medications as prescribed. Wear wrist splint as needed. Return to the ER or your medical provider if condition worsens. Please read and understand discharge instructions. Thank you for choosing [facility] for your healthcare needs today. Please realize this is an emergency room and that we are providing you with a medical screening exam and this may not be complete and all inclusive of all the testing and or work up that you may need to determine your ailment or severity of your illness. It is very important that you follow up as instructed or that you return to the Emergency Department should you have concerns or if your condition changes or worsens in any way. Coding Level of Care Code ED Hoisting Engine Operator for [facility]adi Exam Comprehensive
[2021-04-25] MEDS: ketorolac 60 mg/2 mL INJ IM (18:43)
[2021-04-25 19:21] VITALS: PULSE 78
[2021-04-25 19:22] VITALS: PULSE 78; RESP 16; O2SAT 97
== END 2021-04-25 19:24 | disposition home or self-care (01) ==
PROVIDERS: Emergency Provider Physician Assistant
DX: M25.532 Pain in left wrist (principal); F17.210 Nicotine dependence, cigarettes, uncomplicated
CPT/HCPCS: 73110; 96372; 99283; J1885

== ENCOUNTER 2021-08-31 01:46 | Emergency (ER) | payer MEDICAID, SELFPAY ==
[2021-08-31 02:19] VITALS: BP 131/83; PULSE 91; RESP 18; TEMP 36.8; O2SAT 99; BMI 26.6
[2021-08-31 04:05] LABS: Add Urine Culture? No; Add Urine Microscopic? YES; Bacteria Urine TRACE /hpf; Bilirubin Urine Neg (Negative); Blood Urine Neg (Negative); Glucose Urine UA Norm (Normal); Ketones Urine Negative (Negative); Leukocyte Esterase Urine Trace (Negative); Mucus Urine 2+ /hpf; Nitrate Urine Negative (Negative); Protein Urine Neg (Negative); RBC Urine 0-4 /hpf (0-2); Squamous Epithelial Cell Urine 15-25 /hpf (0-5); Urine Appearance SL Hazy (CLEAR); Urine Color Yellow (Yellow); Urobilinogen Urine Norm (Negative); WBC Urine 0-4 /hpf (0-5); pH Urine 5 (5-7)
[2021-08-31 04:23] LABS: HCG Qualitative Urine. Positive (Negative)
--- NOTE | 2021-08-31 04:57 | US_ITS ---
WS: [id number] ULTRASOUND EARLY TECHNIQUE: Transabdominal sonography of the pelvis was performed. Followed by transvaginal sonography to better evaluate the uterus and ovaries. CLINICAL INFORMATION: abd pain Beta hCG: Unknown. COMPARISON: None. FINDINGS: UTERUS AND GESTATIONAL SAC Intrauterine gestations: Single intrauterine gestation with gestational sac and pole. Estimated gestational age: 6w4d Estimated date of delivery April 22, 2022 Yolk sac: 0.4 cm. [place] rump length (CRL): 0.7 cm. heart motion: 124 BPM. Subchorionic hemorrhage: None. OVARIES Right ovary: Corpus luteum cyst RIGHT ovary. Left ovary: Normal. FREE FLUID None. US/US OB <=14 wk fetus w transvag IMPRESSION: 1. Single live intrauterine with gestational sac and pole. 2. Estimated gestational age; 6w4d 3. Corpus luteum cyst RIGHT ovary measuring measuring 1.7 x 1.8 cm 4. No free fluid in the cul-de-sac.
--- NOTE | 2021-08-31 04:58 | ED_ITS ---
HPI - General: Chief complaint: OB/Uterine Contractions Stated complaint: \ ABD Pain\Bleeding Time Seen by Provider: 08/31/21 04:53 Source: patient Mode of arrival: ambulatory Limitations: no limitations History of Present Illness: 35-year-old female states that she is concerned that she may be . States she has not had menstruation since late May has been having lower abdominal cramping over the last week mainly in the left lower quadrant states pain currently is a 2-3 out of 10 and is not severe in nature states she is also had couple episodes of some spotting. She also has had some nausea and vomiting denies any worsening proving factors Date of Last Menstrual Period: 06/08/21 Associated symptoms: Reports abdominal pain, nausea and vomiting; Deny dysuria or headache(s) Review of Systems Const: Denies: fever(s), chills, body aches or change in appetite Eyes: Denies: blurry vision or eye discomfort ENMT: Denies: throat pain or dental pain Card: Denies: chest pain Resp: Denies: dyspnea GI: Reports: abdominal pain, nausea and vomiting : Reports: vaginal bleeding; Denies: dysuria Musc: Denies: neck pain or back pain Skin/Breast: Denies: rash Neuro: Denies: headache(s) Psych: Denies: depression Yusef/Lymph: Denies: easy bruising All/Imm: Denies: urticaria PFSH ED PFSH: Family History Father Hypertension Grandfather Diabetes maternal Heart disease maternal Grandmother Stroke paternal great Family/Other FH: mental illness cousin Denies family history of Clotting disorder Anesthesia complication Bleeding disorder Social History Smoking and tobacco status: current every day smoker cigarettes [ Other cigarette details: 3 per day] Alcohol intake: current Alcohol intake frequency: holidays/special occasions only Alcohol type: wine Female Reproductive History: Date of last menstrual period: 06/08/21 Physical Exam Const: COMMON NORMALS: no acute distress, patient oriented x3 and healthy appearing HENMT: COMMON NORMALS: normocephalic and atraumatic HEAD & SCALP: normocephalic and atraumatic Eye: COMMON NORMALS: Equal, round and reactive pupils present and EOMs intact bilaterally PUPIL: Yes Equal, round and reactive pupils present Neck/C-Spine: COMMON NORMALS: full ROM and supple Chest: COMMONS NORMALS: normal inspection of the chest and normal palpation of entire chest wall Resp: COMMON NORMALS: normal respiratory effort, No retractions, No use of accessory muscles and clear to auscultation bilaterally AUSCULTATION: clear to auscultation bilaterally Cardio: COMMON NORMALS: regular rate, regular rhythm and No murmurs present (Cardio) RATE: regular rate RHYTHM: regular rhythm GI: COMMON NORMALS: Normal to inspection, nondistended, normoactive bowel sounds present, Soft to palpation, non-tender and no masses PALPATION: Yes Soft to palpation Extremity: COMMON NORMALS: normal to inspection and full ROM Neuro: COMMON NORMALS: patient oriented x3, moves all extremities and no focal motor deficits Psych: COMMON NORMALS: mental status grossly normal, Normal thought process present and cooperative THOUGHT PROCESS: Normal thought process present Skin: COMMON NORMALS: no rashes or lesions noted and no wounds GENERAL SKIN EXAM: no rashes or lesions noted Course Vital Signs: Vital signs: Vital Signs Temperature 98.3 F 08/31/21 02:19 Pulse Rate 91 08/31/21 02:19 Respiratory Rate 18 08/31/21 02:19 Blood Pressure 131/83 08/31/21 02:19 Pulse Oximetry 99 08/31/21 02:19 MDM - OB/Uterine Contractions Medical Decision Making Patient presents here with abdominal pain in likely just cramping pain. Her exam here is benign with no tenderness ultrasound showed an IUP roughly 6 to 8 weeks. Blood work here is normal as well will prescribe Reglan for her vomiting at home she is to follow-up with OB and return if worsening. Lab Data : 08/31/21 04:10 08/31/21 04:10 Radiology Impressions Obstetrics Ultrasound 08/31/21 04:57 IMPRESSION: 1. Single live intrauterine with gestational sac and pole. 2. Estimated gestational age; 6w4d 3. Corpus luteum cyst RIGHT ovary measuring measuring 1.7 x 1.8 cm 4. No free fluid in the cul-de-sac. Laboratory Results WBC 7.5 10^3/uL (4.0-10.0) 08/31/21 04:10 RBC 4.47 10^6/uL (4.1-5.3) 08/31/21 04:10 Hgb 13.2 g/dL (11.5-15.3) 08/31/21 04:10 Hct 40.1 % (37.0-47.0) 08/31/21 04:10 MCV 89.7 fl (81-99) 08/31/21 04:10 MCH 29.5 pg (28.0-34.0) 08/31/21 04:10 MCHC 32.9 g/dL (30.0-36.0) 08/31/21 04:10 RDW 12.2 % (12.1-15.1) 08/31/21 04:10 Plt Count 337 10^3/cmm (130-400) 08/31/21 04:10 MPV 8.8 fL (7.4-10.4) 08/31/21 04:10 Neut % (Auto) 60.0 % 08/31/21 04:10 Lymph % (Auto) 32.4 % 08/31/21 04:10 [place] % (Auto) 5.9 % 08/31/21 04:10 Eos % (Auto) 1.3 % 08/31/21 04:10 Baso % (Auto) 0.3 % 08/31/21 04:10 Neut # (Auto) 4.49 10^3/uL (1.8-7.7) 08/31/21 04:10 Lymph # (Auto) 2.4 10^3/uL (0.8-4.8) 08/31/21 04:10 [place] # (Auto) 0.4 10^3/uL (0.2-0.9) 08/31/21 04:10 Eos # (Auto) 0.1 10^3/uL (0.0-0.8) 08/31/21 04:10 Baso # (Auto) 0.0 10^3/uL (0.0-0.1) 08/31/21 04:10 Nucleated RBC % (auto) 0 % 08/31/21 04:10 Nucleated RBCs # 0.0 /100WBC 08/31/21 04:10 Sodium 135 mmol/L (136-145) L 08/31/21 04:10 Potassium 3.7 mmol/L (3.5-5.1) 08/31/21 04:10 Chloride 99 mmol/L (98-107) 08/31/21 04:10 Carbon Dioxide 24 mmol/L (22-29) 08/31/21 04:10 Anion Gap 15.7 (5-19) 08/31/21 04:10 BUN 9 mg/dL (6-20) 08/31/21 04:10 Creatinine 0.4 mg/dL (0.5-0.9) L 08/31/21 04:10 GFR Calculation 179.6 mL/min (90-130) H 08/31/21 04:10 Glucose 74 mg/dL (65-115) 08/31/21 04:10 Calculated Osmolality 277 mOsm/kg (285-295) L 08/31/21 04:10 Calcium 8.6 mg/dL (8.5-10.5) 08/31/21 04:10 Total Bilirubin 0.2 mg/dL (0.15-1.2) 08/31/21 04:10 AST 16 U/L (0-32) 08/31/21 04:10 ALT 19 U/L (0-33) 08/31/21 04:10 Alkaline Phosphatase 69 IU/L (35-105) 08/31/21 04:10 Total Protein 6.8 g/dL (6.6-8.7) 08/31/21 04:10 Albumin 4.5 g/dL (3.5-5.2) 08/31/21 04:10 Globulin 2.3 g/dL (1.3-4.6) 08/31/21 04:10 Lipase 28 U/L (13-60) 08/31/21 04:10 HCG, Qual Positive (Negative) H 08/31/21 02:36 Ser , Semi-Qnt 93102.00 mIU/mL 08/31/21 04:10 Urine Color Yellow (Yellow) 08/31/21 02:36 Urine Appearance Sl hazy (CLEAR) 08/31/21 02:36 Urine pH 5 (5-7) 08/31/21 02:36 Ur Specific [place] 1.030 (1.005-1.030) 08/31/21 02:36 Urine Protein Neg (Negative) 08/31/21 02:36 Urine Glucose (UA) Norm (Normal) 08/31/21 02:36 Urine Ketones Negative (Negative) 08/31/21 02:36 Urine Blood Neg (Negative) 08/31/21 02:36 Urine Nitrate Negative (Negative) 08/31/21 02:36 Urine Bilirubin Neg (Negative) 08/31/21 02:36 Urine Urobilinogen Norm mg/dL (Negative) 08/31/21 02:36 Ur Leukocyte Esterase Trace (Negative) H 08/31/21 02:36 Urine RBC 0-4 /hpf (0-2) H 08/31/21 02:36 Urine WBC 0-4 /hpf (0-5) H 08/31/21 02:36 Ur Squamous Epith Cells 15-25 /hpf (0-5) H 08/31/21 02:36 Calcium Oxalate Crystal 5-10 /hpf H 08/31/21 02:36 Amorphous Sediment Not Reportable 08/31/21 02:36 Urine Bacteria Trace /hpf (NONE) 08/31/21 02:36 Urine Mucus 2+ /hpf 08/31/21 02:36 Blood Type A Positive 08/31/21 04:10 Rho(D) Type Positive 08/31/21 04:10 Antibody Screen Negative 08/31/21 04:10 Discharge Plan Discharge Patient Disposition: Home Clinical Impression: Abdominal pain during Condition: Stable Prescriptions: New Reglan 10 mg tablet 10 mg PO Q6H PRN (Reason: nausea and vomiting) Qty: 20 0RF No Action albuterol sulfate [ProAir HFA] 90 mcg/actuation HFA aerosol inhaler 2 puff INHALATION Q6H PRN (Reason: shortness of breath or wheezing) Qty: 8.5 0RF buprenorphine-naloxone 8-2 mg tablet, sublingual 1 tab sublingual DAILY 0RF ofloxacin 0.3 % drops 2 drp ophthalmic (eye) BID 7 Days Qty: 5 0RF Celebrex 100 mg capsule 100 mg PO BID PRN (Reason: pain) Qty: 20 0RF Adderall 20 mg Tablet 20 mg PO BID 0RF buprenorphine-naloxone 8-2 mg Tablet, Sublingual 1 tab SUBLINGUAL TID 0RF Abilify 5 mg Tablet 5 mg PO DAILY 0RF Cymbalta 60 mg Capsule,Delayed Release(Dr/Ec) 60 mg PO DAILY 0RF Discharge Orders: Discharge ED (Routine); Ordered 08/31/21 Ordered By: Shoaib Salcido Referrals: Amira Thayer MD [Physician] - 1-3 days Discharge Diet: Advance as tolerated Discharge Activity: Resume usual activity Patient Instructions: Abdominal Pain (ED) Coding Level of Care Code ED Flight Service Specialist for Chg Fwd Exam Comprehensive
[2021-08-31 05:16] LABS: Basophils % 0.3 %; Eosinophils # 0.1 10^3/uL (0.0-0.8); Eosinophils % 1.3 %; Hematocrit 40.1 % (37.0-47.0); Hemoglobin 13.2 g/dL (11.5-15.3); Lymphocytes # 2.4 10^3/uL (0.8-4.8); Lymphocytes % 32.4 %; Mean Corpuscular HGB Conc 32.9 g/dL (30.0-36.0); Mean Corpuscular Hemoglobin 29.5 pg (28.0-34.0); Mean Corpuscular Volume 89.7 fl (81-99); Mean Platelet Volume 8.8 fL (7.4-10.4); Monocytes # 0.4 10^3/uL (0.2-0.9); Monocytes % 5.9 %; Neutrophils # 4.49 10^3/uL (1.8-7.7); Nucleated Red Blood Cells % 0 %; Platelet Count 337 10^3/cmm (130-400); Red Blood Count 4.47 10^6/uL (4.1-5.3); Red Cell Distribution Width 12.2 % (12.1-15.1); White Blood Count 7.5 10^3/uL (4.0-10.0)
[2021-08-31] MEDS: metoclopramide 5 mg/mL SDV 2 mL 10 MG IVP (05:22)
[2021-08-31] MEDS: diphenhydrAMINE 50 mg/mL SDV 1mL IVP (05:22)
[2021-08-31] MEDS: sodium chloride 0.9% 1,000 ML 999 ML IV (05:22)
[2021-08-31 05:39] LABS: Alanine Aminotransferase 19 U/L (0-33); Albumin Level 4.5 g/dL (3.5-5.2); Alkaline Phosphatase 69 IU/L (35-105); Aspartate Amino Transferase 16 U/L (0-32); Blood Urea Nitrogen 9 mg/dL (6-20); Calcium 8.6 mg/dL (8.5-10.5); Carbon Dioxide 24 mmol/L (22-29); Chloride 99 mmol/L (98-107); Globulin 2.3 g/dL (1.3-4.6); Glomerular Filtration Rate 179.6 mL/min (90-130); Glucose 74 mg/dL (65-115); Lipase 28 U/L (13-60); Osmolality Calculated 277 mOsm/kg (285-295); Sodium 135 mmol/L (136-145); Total Bilirubin 0.2 mg/dL (0.15-1.2); Total Protein 6.8 g/dL (6.6-8.7)
[2021-08-31 05:40] LABS: Anion Gap 15.7 (5-19); Potassium 3.7 mmol/L (3.5-5.1)
== END 2021-08-31 05:59 | disposition home or self-care (01) ==
PROVIDERS: Emergency Provider Emergency Medicine
DX: O26.891 Other specified pregnancy related conditions, first trimester (principal); R10.9 Unspecified abdominal pain; O99.331 Smoking (tobacco) complicating pregnancy, first trimester; F17.210 Nicotine dependence, cigarettes, uncomplicated; Z3A.01 Less than 8 weeks gestation of pregnancy
CPT/HCPCS: 76801; 76817; 80053; 81001; 81025; 83690; 84702; 85025; 86850; 86900; 96361; 96374; 96375; 99283; J1200; J2765; J7030

== ENCOUNTER 2021-09-05 18:43 | Emergency (ER) | payer MEDICAID, SELFPAY ==
[2021-09-05 19:05] VITALS: BP 125/89; PULSE 81; RESP 16; TEMP 36.8; O2SAT 95; BMI 25.0
--- NOTE | 2021-09-05 19:34 | W.ED.NAVMDI ---
HPI - Nausea/Vomiting/Diarrhea General: Chief complaint: Nausea/Vomiting/Diarrhea Stated complaint: N\V\ Time Seen by Provider: 09/05/21 19:11 Source: patient Mode of arrival: ambulatory Limitations: no limitations History of Present Illness: 35-year-old female who is currently 7 weeks states that she has had hyperemesis gravidarum states that she has been vomiting not been able to keep anything down. She states that she has been taking her Suboxone a thought that may be making her sick and they are going to switch her over to a different medicine but she is not been able to get it due to cost. States she still been trying take her Suboxone but is been vomiting it up. She has got some slight cramping denies any vaginal bleeding had an ultrasound last week that was normal. Associated nausea: Yes Associated symtoms: Reports nausea; Denies chest pain, dysuria or headache(s) Review of Systems Const: Denies: fever(s), chills, body aches or change in appetite Eyes: Denies: blurry vision or eye discomfort ENMT: Denies: throat pain or dental pain Card: Denies: chest pain Resp: Denies: dyspnea GI: Reports: nausea and vomiting : Denies: dysuria Musc: Denies: neck pain or back pain Skin/Breast: Denies: rash Neuro: Denies: headache(s) Psych: Denies: depression Yusef/Lymph: Denies: easy bruising All/Imm: Denies: urticaria PFSH ED PFSH: Family History Father Hypertension Grandfather Diabetes maternal Heart disease maternal Grandmother Stroke paternal great Family/Other FH: mental illness cousin Denies family history of Clotting disorder Anesthesia complication Bleeding disorder Social History Smoking and tobacco status: current every day smoker cigarettes [ Other cigarette details: 3 per day] Alcohol intake: current Alcohol intake frequency: holidays/special occasions only Alcohol type: wine Female Reproductive History: Date of last menstrual period: 06/08/21 Physical Exam Const: COMMON NORMALS: no acute distress, patient oriented x3 and healthy appearing HENMT: COMMON NORMALS: normocephalic and atraumatic HEAD & SCALP: normocephalic and atraumatic Eye: COMMON NORMALS: Equal, round and reactive pupils present and EOMs intact bilaterally PUPIL: Yes Equal, round and reactive pupils present Neck/C-Spine: COMMON NORMALS: full ROM and supple Chest: COMMONS NORMALS: normal inspection of the chest and normal palpation of entire chest wall Resp: COMMON NORMALS: normal respiratory effort, No retractions, No use of accessory muscles and clear to auscultation bilaterally AUSCULTATION: clear to auscultation bilaterally Cardio: COMMON NORMALS: regular rate, regular rhythm and No murmurs present (Cardio) RATE: regular rate RHYTHM: regular rhythm GI: COMMON NORMALS: Normal to inspection, nondistended, normoactive bowel sounds present, Soft to palpation, non-tender and no masses PALPATION: Yes Soft to palpation Extremity: COMMON NORMALS: normal to inspection and full ROM Neuro: COMMON NORMALS: patient oriented x3, moves all extremities and no focal motor deficits Psych: COMMON NORMALS: mental status grossly normal, Normal thought process present and cooperative THOUGHT PROCESS: Normal thought process present Skin: COMMON NORMALS: no rashes or lesions noted and no wounds GENERAL SKIN EXAM: no rashes or lesions noted Course Vital Signs: Vital signs: Vital Signs Temperature 98.2 F 09/05/21 19:05 Pulse Rate 81 09/05/21 19:05 Respiratory Rate 16 09/05/21 19:05 Blood Pressure 125/89 09/05/21 19:05 Pulse Oximetry 95 09/05/21 19:05 MDM - Nausea/Vomiting/Diarrhea Medical Decision Making Patient presents with hyperemesis gravidarum she feels much improved after IV fluids and Reglan has been able to tolerate p.o. will prescribe her Zofran she is stable for discharge is to follow-up with OB and return if worsening. Lab Data : 09/05/21 20:01 09/05/21 20:01 Laboratory Results WBC 6.6 10^3/uL (4.0-10.0) 09/05/21 20: RBC 4.53 10^6/uL (4.1-5.3) 09/05/21 20:01 Hgb 13.3 g/dL (11.5-15.3) 09/05/21 20: Hct 40.2 % (37.0-47.0) 09/05/21 20:01 MCV 88.7 fl (81-99) 09/05/21 20: MCH 29.4 pg (28.0-34.0) 09/05/21 20: MCHC 33.1 g/dL (30.0-36.0) 09/05/21 20: RDW 11.9 % (12.1-15.1) L 09/05/21 20: Plt Count 375 10^3/cmm (130-400) 09/05/21 20: MPV 8.8 fL (7.4-10.4) 09/05/21 20: Neut % (Auto) 62.4 % 09/05/21 20: Lymph % (Auto) 30.2 % 09/05/21 20: [place] % (Auto) 5.5 % 09/05/21 20: Eos % (Auto) 1.4 % 09/05/21: Baso % (Auto) 0.3 % 09/05/21: Neut # (Auto) 4.12 10^3/uL (1.8-7.7) 09/05/21 20: Lymph # (Auto) 2.0 10^3/uL (0.8-4.8) 09/05/21 20: [place] # (Auto) 0.4 10^3/uL (0.2-0.9) 09/05/21 20: Eos # (Auto) 0.1 10^3/uL (0.0-0.8) 09/05/21 20: Baso # (Auto) 0.0 10^3/uL (0.0-0.1) 09/05/21 20: Nucleated RBC % (auto) 0 % 09/05/21: Nucleated RBCs # 0.0 /100WBC 09/05/21 20: Sodium 138 mmol/L (136-145) 09/05/21 20: Potassium 5.0 mmol/L (3.5-5.1) 09/05/21 20: Chloride 103 mmol/L (98-107) 09/05/21 20: Carbon Dioxide 24 mmol/L (22-29) 09/05/21 20: Anion Gap 16.0 (5-19) 09/05/21 20: BUN 6 mg/dL (6-20) 09/05/21 20: Creatinine 0.5 mg/dL (0.5-0.9) 09/05/21 20: GFR Calculation 138.8 mL/min (90-130) H 09/05/21 20: Glucose 110 mg/dL (65-115) 09/05/21 20: Calculated Osmolality 284 mOsm/kg (285-295) L 09/05/21 20: Calcium 9.2 mg/dL (8.5-10.5) 09/05/21 20: Total Bilirubin 0.2 mg/dL (0.15-1.2) 09/05/21 20: AST 18 U/L (0-32) 09/05/21 20: ALT 17 U/L (0-33) 09/05/21 20: Alkaline Phosphatase 75 IU/L (35-105) 09/05/21 20: Total Protein 7.1 g/dL (6.6-8.7) 09/05/21 20: Albumin 4.2 g/dL (3.5-5.2) 09/05/21 20: Globulin 2.9 g/dL (1.3-4.6) 09/05/21 20: Lipase 25 U/L (13-60) 09/05/21 20: Urine Color Yellow (Yellow) 09/05/21 19:41 Urine Appearance Clear (CLEAR) 09/05/21 19:41 Urine pH 7 (5-7) 09/05/21 19:41 Ur Specific [place] 1.010 (1.005-1.030) 09/05/21 19:41 Urine Protein Neg (Negative) 09/05/21 19:41 Urine Glucose (UA) Norm (Normal) 09/05/21 19:41 Urine Ketones Negative (Negative) 09/05/21 19: Urine Blood Neg (Negative) 09/05/21: Urine Nitrate Negative (Negative) 09/05/21 19:41 Urine Bilirubin Neg (Negative) 09/05/21 19: Urine Urobilinogen Norm mg/dL (Negative) 09/05/21 19:41 Ur Leukocyte Esterase Negative (Negative) 09/05/21 19:41 Discharge Plan Discharge Patient Disposition: Home Clinical Impression: Hyperemesis gravidarum Condition: Stable Prescriptions: No Action albuterol sulfate [ProAir HFA] 90 mcg/actuation HFA aerosol inhaler 2 puff INHALATION Q6H PRN (Reason: shortness of breath or wheezing) Qty: 8.5 0RF buprenorphine-naloxone 8-2 mg tablet, sublingual 1 tab sublingual DAILY 0RF ofloxacin 0.3 % drops 2 drp ophthalmic (eye) BID 7 Days Qty: 5 0RF Celebrex 100 mg capsule 100 mg PO BID PRN (Reason: pain) Qty: 20 0RF Adderall 20 mg Tablet 20 mg PO BID 0RF buprenorphine-naloxone 8-2 mg Tablet, Sublingual 1 tab SUBLINGUAL TID 0RF Abilify 5 mg Tablet 5 mg PO DAILY 0RF Cymbalta 60 mg Capsule,Delayed Release(Dr/Ec) 60 mg PO DAILY 0RF Reglan 10 mg tablet 10 mg PO Q6H PRN (Reason: nausea and vomiting) Qty: 20 0RF Discharge Orders: Discharge ED (Routine); Ordered 09/05/21 Ordered By: Shoaib Salcido Discharge Diet: Advance as tolerated Discharge Activity: Resume usual activity Patient Instructions: Hyperemesis Gravidarum (ED) Coding Level of Care Code ED Lead Project Manager for [employer]indag Fwd Exam Comprehensive
[2021-09-05] MEDS: metoclopramide 5 mg/mL SDV 2 mL 10 MG IVP (20:03)
[2021-09-05] MEDS: diphenhydrAMINE 50 mg/mL SDV 1mL IVP (20:03)
[2021-09-05] MEDS: sodium chloride 0.9% 1,000 ML 999 ML IV ×2 (20:03)
[2021-09-05 20:07] LABS: Add Urine Microscopic? NO; Charge for UA Resulting for Rev
[2021-09-05 20:12] LABS: Basophils % 0.3 %; Eosinophils # 0.1 10^3/uL (0.0-0.8); Eosinophils % 1.4 %; Hematocrit 40.2 % (37.0-47.0); Hemoglobin 13.3 g/dL (11.5-15.3); Lymphocytes % 30.2 %; Mean Corpuscular HGB Conc 33.1 g/dL (30.0-36.0); Mean Corpuscular Hemoglobin 29.4 pg (28.0-34.0); Mean Corpuscular Volume 88.7 fl (81-99); Mean Platelet Volume 8.8 fL (7.4-10.4); Monocytes # 0.4 10^3/uL (0.2-0.9); Monocytes % 5.5 %; Neutrophils # 4.12 10^3/uL (1.8-7.7); Neutrophils % 62.4 %; Nucleated Red Blood Cells % 0 %; Platelet Count 375 10^3/cmm (130-400); Red Blood Count 4.53 10^6/uL (4.1-5.3); Red Cell Distribution Width 11.9 % (12.1-15.1); White Blood Count 6.6 10^3/uL (4.0-10.0)
[2021-09-05 20:14] LABS: Glucose Urine UA Norm (Normal); Protein Urine Neg (Negative); Urine Appearance Clear (CLEAR); Urine Color Yellow (Yellow); pH Urine 7 (5-7)
[2021-09-05 20:15] LABS: Bilirubin Urine Neg (Negative); Blood Urine Neg (Negative); Ketones Urine Negative (Negative); Leukocyte Esterase Urine Negative (Negative); Nitrate Urine Negative (Negative); Urobilinogen Urine Norm (Negative)
[2021-09-05 20:29] LABS: Alanine Aminotransferase 17 U/L (0-33); Albumin Level 4.2 g/dL (3.5-5.2); Alkaline Phosphatase 75 IU/L (35-105); Aspartate Amino Transferase 18 U/L (0-32); Blood Urea Nitrogen 6 mg/dL (6-20); Calcium 9.2 mg/dL (8.5-10.5); Carbon Dioxide 24 mmol/L (22-29); Chloride 103 mmol/L (98-107); Globulin 2.9 g/dL (1.3-4.6); Glomerular Filtration Rate 138.8 mL/min (90-130); Glucose 110 mg/dL (65-115); Lipase 25 U/L (13-60); Osmolality Calculated 284 mOsm/kg (285-295); Sodium 138 mmol/L (136-145); Total Bilirubin 0.2 mg/dL (0.15-1.2); Total Protein 7.1 g/dL (6.6-8.7)
[2021-09-05 20:54] VITALS: BP 138/90; PULSE 81; RESP 16; O2SAT 98
--- NOTE | 2021-09-06 13:59 | DCPLANNER ---
Addendum entered by Kena Heard 09/15/21 14:53: Patient had a follow up appointment scheduled for 09.14.21 at [facility] - patient did not attend appointment. Addendum entered by Kena Heard 09/10/21 14:36: Patient has a follow up scheduled for Tuesday, September 14, 2021 at 2:00 with SUPERVISOR [employer]IGATION, Yenny Correa. Clinic will call patient with appointment information. Original Note: trucking manager had message to schedule a follow up appointment for patient with [facility]. trucking manager [facility], spoke with Bernabe, gave clinic patients information. trucking manager was told that patients information would be printed and reviewed. Clinic will call patient with appointment information.
== END 2021-09-05 21:00 | disposition home or self-care (01) ==
PROVIDERS: Emergency Provider Emergency Medicine
DX: O21.0 Mild hyperemesis gravidarum (principal); O99.331 Smoking (tobacco) complicating pregnancy, first trimester; F17.210 Nicotine dependence, cigarettes, uncomplicated; Z3A.01 Less than 8 weeks gestation of pregnancy
CPT/HCPCS: 80053; 81003; 83690; 85025; 96361; 96374; 96375; 99284; J1200; J2765; J7030

== ENCOUNTER → 2021-10-05 14:51 | Outpatient (BNVA) | payer MEDICAID, SELFPAY | PROVIDERS: Visit Provider Obstetrics & Gynecology | DX: Z34.90 Encounter for supervision of normal pregnancy, unspecified, unspecified trimester (principal); N92.6 Irregular menstruation, unspecified | CPT/HCPCS: 80307; 84315; 85027; 86592; 86762; 86803; 86850; 86900; 87086; 87340; 87806 ==

== ENCOUNTER → 2021-11-01 10:50 | Outpatient (BNVA) | payer MEDICAID, SELFPAY | PROVIDERS: Visit Provider Obstetrics & Gynecology | DX: O09.91 Supervision of high risk pregnancy, unspecified, first trimester (principal) | CPT/HCPCS: 80048; 84315; 87491; 87591; 87624; 87661 ==

== ENCOUNTER → 2021-12-02 15:42 | Outpatient (BNVA) | payer MEDICAID, SELFPAY | PROVIDERS: Visit Provider Obstetrics & Gynecology | DX: Z36.87 Encounter for antenatal screening for uncertain dates (principal) | CPT/HCPCS: 76805 ==

== ENCOUNTER → 2022-01-04 08:38 | Outpatient (BNVA) | payer MEDICAID, SELFPAY | PROVIDERS: Visit Provider Obstetrics & Gynecology | DX: O09.90 Supervision of high risk pregnancy, unspecified, unspecified trimester (principal); O34.219 Maternal care for unspecified type scar from previous cesarean delivery; F19.10 Other psychoactive substance abuse, uncomplicated; F15.10 Other stimulant abuse, uncomplicated; O09.292 Supervision of pregnancy with other poor reproductive or obstetric history, second trimester; Z3A.00 Weeks of gestation of pregnancy not specified | CPT/HCPCS: 82950; 84315 ==

== ENCOUNTER → 2022-01-28 12:08 | Outpatient (BNVA) | payer MEDICAID, SELFPAY | PROVIDERS: Visit Provider Obstetrics & Gynecology | DX: O09.90 Supervision of high risk pregnancy, unspecified, unspecified trimester (principal); Z3A.00 Weeks of gestation of pregnancy not specified | CPT/HCPCS: 84315; 85027 ==

== ENCOUNTER 2022-02-02 20:07 | Outpatient (CLI) | payer MEDICAID, SELFPAY ==
[2022-02-02 20:20] VITALS: BP 113/65; PULSE 99; RESP 17; TEMP 37.5
[2022-02-02 20:37] VITALS: BMI 26.9
[2022-02-02] MEDS: acetaminophen 500 mg Tablet 1000 MG PO (20:59)
== END 2022-02-02 21:03 | disposition home or self-care (01) ==
LOC: OPOB 20:09 → OBGYN 20:12
PROVIDERS: Visit Provider Obstetrics & Gynecology
DX: O21.9 Vomiting of pregnancy, unspecified (principal); Z3A.00 Weeks of gestation of pregnancy not specified
CPT/HCPCS: 59025; 99211

== ENCOUNTER 2022-02-05 23:19 | Outpatient (CLI) | payer MEDICAID, SELFPAY ==
[2022-02-05 23:25] VITALS: BP 151/96; PULSE 108
[2022-02-05 23:43] VITALS: RESP 20
[2022-02-05 23:47] VITALS: BP 115/74; PULSE 83
[2022-02-05 23:54] VITALS: BMI 28.1
[2022-02-06] VITALS (7 sets, daily range): BP systolic 106–116; BP diastolic 62–75; PULSE 69–77; RESP 16
--- NOTE | 2022-02-06 23:50 | USR_ITS ---
PROCEDURE INFORMATION: Exam: US , Limited Exam date and time: 02/06/2022 12:18 AM Age: 36 years old Clinical indication: Lmp or gestational age (in weeks): 32w3d; Other: Vaginal bleeding; ; Additional info: Bleeding, check placenta LABS AND CLINICAL REPORTS: Last menstrual period start date: Unknown; 07/10/2021 Gestational age (Established): 30 w 1 d Estimated due date (Established): 04/16/2022 TECHNIQUE: Imaging protocol: Real-time ultrasound of the maternal uterus with image documentation. Exam focused on the clinical indication. COMPARISON: US OB >= 14 weeks fetus [id number] 12/02/2021 3:45 PM FINDINGS: Gestation: Intrauterine gestation. heart rate: 136 bpm presentation: Cephalic Placenta: Left placenta without previa. Amniotic fluid: Amniotic fluid volume is normal. Amniotic fluid index: [place] is 8.5 cm. BIOMETRY: Gestational age (AUA): 32 w 3 d Estimated due date (AUA): 03/31/2022 Head circumference (HC): 29.6 cm. EGA (HC) is 32 w 5 d Abdominal circumference (AC): 26.5 cm. EGA (AC) is 30 w 4 d Femur length (FL): 6.8 cm. EGA (FL) is 34 w 1 d Cephalic Index (CI): 0.84 HC/AC: 1.12 FL/HC: 0.22 FL/AC: 0.25 MATERNAL: Cervix: Cervical length measures 3.7 cm. US/US OB limited [id number] IMPRESSION: 1. Single viable intrauterine with EGA 32 weeks 3 days. 2. TENA by ultrasound March 31, 2022. 3. 3.7 cm closed cervix.
== END 2022-02-06 01:36 | disposition home or self-care (01) ==
LOC: OPOB 23:21 → OBGYN 23:22
PROVIDERS: Visit Provider Obstetrics & Gynecology
DX: O46.90 Antepartum hemorrhage, unspecified, unspecified trimester (principal); Z3A.00 Weeks of gestation of pregnancy not specified
CPT/HCPCS: 59025; 76815; 99211

== ENCOUNTER 2022-03-05 18:10 | Outpatient (CLI) | payer MEDICAID, SELFPAY ==
[2022-03-05 18:10] VITALS: BMI 29.2
[2022-03-05 18:24] VITALS: BP 116/71; PULSE 87; TEMP 35.5
[2022-03-05 18:25] VITALS: TEMP 35.5
--- NOTE | 2022-03-05 18:42 | USR_ITS ---
PROCEDURE INFORMATION: Exam: US Biophysical Profile Without Non-Stress Test Exam date and time: 03/05/2022 6:59 PM Age: 36 years old Clinical indication: Injury or trauma; Fall; Injury date: 03/05/22; Injury details: Cut foot did not hit abd very hard; ; Additional info: Status post fall, ultrasound for placenta to rule out bleeding TECHNIQUE: Imaging protocol: US biophysical profile without non-stress testing. COMPARISON: US OB limited [id number] 02/06/2022 12:18 AM FINDINGS: heart rate: 144 bpm presentation: Cephalic Placenta: Anterior without evidence of previa. Amniotic fluid: Amniotic fluid volume is normal. Amniotic fluid index: [place] is 12.6 cm. BIOPHYSICAL PROFILE: breathing movement (BPP): 2/2 body movement (BPP): 2/2 tone (BPP): 22/2 Amniotic fluid (BPP): 2/2 Biophysical profile score (BPP): 8/8 No evidence for abruption. MATERNAL ANATOMY: Cervix: Cervical length measures 5 cm. US/US OB BPP wo NST [id number] IMPRESSION: Normal biophysical profile score of 8/8. No evidence for abruption.
[2022-03-05 18:43] VITALS: RESP 16
[2022-03-05 19:25] VITALS: BP 102/70; PULSE 82
[2022-03-05 19:54] VITALS: BP 109/75; PULSE 85
[2022-03-05 19:55] LABS: Add Urine Culture? No; Amorphous Sediment Urine TRACE /hpf; Bacteria Urine 2+ /hpf; Bilirubin Urine Neg (Negative); Blood Urine Neg (Negative); Glucose Urine UA Norm (Normal); Ketones Urine 1+ (Negative); Leukocyte Esterase Urine 2+ (Negative); Mucus Urine 1+ /hpf; Nitrate Urine Negative (Negative); Protein Urine Neg (Negative); RBC Urine 0-4 /hpf (0-2); Specific Gravity, Urine 1.015 (1.005-1.030); Squamous Epithelial Cell Urine 15-25 /hpf (0-5); Urine Appearance Hazy (CLEAR); Urine Color Yellow (Yellow); Urobilinogen Urine Neg (Negative); WBC Urine 15-25 /hpf (0-5); pH Urine 7 (5-7)
[2022-03-05 20:14] VITALS: BP 110/70; PULSE 81
== END 2022-03-05 20:26 | disposition home or self-care (01) ==
LOC: OPOB 18:14 → OBGYN 18:14
PROVIDERS: Visit Provider Obstetrics & Gynecology
DX: O26.899 Other specified pregnancy related conditions, unspecified trimester (principal); Z3A.00 Weeks of gestation of pregnancy not specified; Z91.81 History of falling
CPT/HCPCS: 59025; 76819; 81001; 99211

== ENCOUNTER → 2022-03-25 10:07 | Outpatient (BNVA) | payer MEDICAID, SELFPAY | PROVIDERS: Visit Provider Obstetrics & Gynecology | DX: O09.93 Supervision of high risk pregnancy, unspecified, third trimester (principal) | CPT/HCPCS: 80307; 84315; 87081 ==

== ENCOUNTER 2022-04-07 11:38 | Inpatient (IN) | payer MEDICAID, SELFPAY ==
[2022-04-07] VITALS (24 sets, daily range): BP systolic 105–128; BP diastolic 58–84; PULSE 55–86; RESP 15–18; TEMP 35.9–36.8; O2SAT 99–100; BMI 30.4
[2022-04-07 11:31] LABS: Basophils % 0.3 %; Eosinophils # 0.1 10^3/uL (0.0-0.8); Eosinophils % 0.5 %; Hematocrit 34.6 % (37.0-47.0); Hemoglobin 11.2 g/dL (11.5-15.3); Lymphocytes # 1.7 10^3/uL (0.8-4.8); Lymphocytes % 17.3 %; Mean Corpuscular HGB Conc 32.4 g/dL (30.0-36.0); Mean Corpuscular Hemoglobin 30.1 pg (28.0-34.0); Monocytes # 0.6 10^3/uL (0.2-0.9); Monocytes % 5.6 %; Neutrophils # 7.53 10^3/uL (1.8-7.7); Neutrophils % 75.7 %; Nucleated Red Blood Cells % 0 %; Platelet Count 278 10^3/cmm (130-400); Red Blood Count 3.72 10^6/uL (4.1-5.3); Red Cell Distribution Width 13.3 % (12.1-15.1)
[2022-04-07] MEDS: lactated ringers 1,000 ML 999 ML IV (12:08)
--- NOTE | 2022-04-07 12:44 | ANES.PREANE2 ---
Pre-Anesthetic Assessment Height/Weight: Height 1.7 m Weight 87.997 kg Temp Pulse Resp BP O2 Del Method 96.6 F L 86 18 128/78 04/07/22 10:46 04/07/22 10:47 04/07/22 12:16 04/07/22 10:47 04/07/22 12:16 Preop Diagnosis: repeat c section section Familial anesthetic complications: none Was Beta Sunil taken within 24 hours: N/A Was Clonidine taken within 24 hours: N/A Last intake: Intake Last Liquid Date 04/07/22 Last Liquid Time 10:20 Last Solid Date 04/06/22 Last Solid Time 20:00 Social Tobacco (Uses nicotine patch ) and No alcohol Last dose sublingual buprenoprhine-naloxone today Exam alert, oriented x 3, clear to auscultation bilaterally and regular rate & rhythm Airway Submandibular: within normal limits Cervical ROM: within normal limits Mallampati: Class II Dentition: chipped Comments: Comments: Had temporary filling placed 04/06/22 prior to crown History/ROS No significant complaints Pulmonary None reported CV/HEM None reported Hx of pre eclampsia Hx of post hemorrhage None reported Hepatic None reported GI None reported Metabolic None reported Musc/skel None reported Neuropsych None reported Anesthetic Plan ASA status: 2 Anesthesia: Anesthesia Evaluation and Regional (specify below) (Spinal) Other: We discussed risk and benefits of spinal anesthesia including infection, paralysis/catastrophic nerve injury, back bruising/pain, PDPH, conversion to general in case of spinal failure, intraoperative and PONV, life threatening allergic reaction, post operative ICU admission requiring prolonged intubation, stroke, heart attack. Risk of > 500 ml blood loss (7ml/kg in children): No Medications/Allergies Home Medications Medication Instructions Recorded Confirmed Last Taken Type buprenorphine 8 mg-naloxone 2 mg 1 tab sublingual TID 08/29/19 04/01/22 03/05/22 14:00 History sublingual tablet PNV 153-FA 400 mcg-om3 35 mg-dha 2 tab PO .daily 11/01/21 04/01/22 03/05/22 00:00 History 25 mg-epa 5 mg-fish oil chew tablet ( Gummies) ferrous sulfate 325 mg (65 mg 325 mg PO DAILY 03/05/22 04/01/22 03/05/22 00:00 History iron) tablet (Iron (ferrous sulfate)) aripiprazole 5 mg tablet (Abilify) 5 mg PO DAILY 04/01/22 04/01/22 Unknown History nicotine 7 mg/24 hr daily 1 patch transdermal Q24H 04/01/22 04/01/22 Unknown History transdermal patch Allergies Allergy/AdvReac Type Severity Reaction Status Date / Time beeswax Allergy unknown Verified 04/01/22 08:05 Current Medications Generic Name Dose Route Start Last Admin Trade Name Freq PRN Reason Stop Dose Admin Lactated Ringer's 1,000 mls @ 999 mls/hr 04/07/22 11:58 04/07/22 12:08 Lactated Ringers IV 04/07/22 12:58 999 mls/hr .Q1H1M ONE Administration PFSH Anesthesia Surgical History H/O section 04/20/[address] repeat low transverse by Dr Anderson 2003- Performed by Dr. Jimenez at [facility] in [place], [place] H/O dilation and curettage 2002- Retained placenta per patient. Performed at [facility] in [place], [place] History of bunionectomy Family History Father Hypertension Hyperlipidemia Grandfather Diabetes maternal Heart disease maternal Grandmother Stroke paternal great Family/Other FH: mental illness cousin Breast cancer, Onset Age: 35 maternal great aunt Denies family history of [place] cancer Ovarian cancer Clotting disorder Anesthesia complication Bleeding disorder Uterine cancer Thyroid condition Social History Smoking and tobacco status: current every day smoker (1 cigarette per day ) Female Reproductive History Date of last menstrual period: 06/08/21 Data Anesthesia : 04/07/22 11:00 Short CBC 04/07/22 Range/Units 11:00 WBC 10.0 (4.0-10.0) 10^3/uL Hgb 11.2 L (11.5-15.3) g/dL Hct 34.6 L (37.0-47.0) % MCV 93.0 (81-99) fl Plt Count 278 (130-400) 10^3/cmm Neut % (Auto) 75.7 % Neut # (Auto) 7.53 (1.8-7.7) 10^3/uL Cardiac Studies: No Data to Display
--- NOTE | 2022-04-07 12:45 | PM.PN ---
Subjective Subjective: Ms. Sierra is a 36 year old established patient with an uncertain LMP, TENA 04/22/2022 based on first trimester ultrasound, placing her at 37 6/7 weeks today. Came complaining of rupture of membranes. Vitals/I&O/Wt Last Vital Signs Temp 96.6 F L 04/07/22 10:46 Pulse 86 04/07/22 10:47 Resp 18 04/07/22 12:16 BP 128/78 04/07/22 10:47 O2 Del Method 04/07/22 12:16 Weight last 48 hrs Weight 87.997 kg Physical Exam Narrative: GA: Alert and oriented ?3. Lungs: Clear to auscultation bilaterally. Heart: Regular rhythm and rate. Abdomen: Gravid, full the height equals dates, nontender. PRECISION AIRCRAFT SYSTEMS ASSEMBLER: SVE; dilation: [] cm, effacement: []%, station: [], presentation: [], membranes: Prelabor rupture of membrane. Extremities: no edema, no cyanosis, no calves pain. heart tracing: Basal rate: [140's] bpm, Variability: [moderate], Accelerations: [present], Decelerations: [absent], Contraction: [q3min]. Data : 04/08/22 03:00 A&P Assessment and plan (1) Premature rupture of membranes: Mrs. Angela 36-year-old female came to labor and delivery complaining of rupture of membranes. Labor rupture membranes was confirmed. She is a previous delivery and she was planning to have a repeat delivery. She was counseled regarding repeat delivery Status: Resolved (2) Previous delivery affecting : Status: Resolved (3) Term : Status: Resolved Plan Repeat delivery Attestations Medical Necessity Statement*: in my professional opinion per admitting diagnosis Coding Level of Care Code Acute Staff Electronic Warfare Officer for g Fwd Diagnoses Premature rupture of membranes O42.90 Previous delivery affecting O34.219 Term Z34.90
[2022-04-07] MEDS: metoclopramide 5 mg/mL SDV 2 mL 10 MG IVP (13:12)
[2022-04-07] MEDS: citric acid-sodium citrate 30 mL UDC PO (13:12)
[2022-04-07] MEDS: famotidine 20 mg/2 mL INJ IVP (13:13)
[2022-04-07] MEDS: ceFAZolin 2,000 MG in sodium chloride 0.9% (plus) 50 ML 100 MG IV (13:23)
--- NOTE | 2022-04-07 15:02 | PM.OP ---
Operative Report Date of procedure: April 07, 2022 Pre-op diagnosis: Preop Diagnosis previous delivery, prelabor rupture of membranes repeat c section Post-op diagnosis: As above Procedure done: Repeat low traverse delivery Surgeon: Travis Anderson MD Estimated blood loss (mL): 800 IV fluids (mL): 1,400 Urine output (mL): 100 Procedure: After assuring informed consent, the patient was taken to the operating room and anesthesia was initiated. She was placed in the dorsal supine position with a left lateral tilt. The abdomen was prepped and draped in the usual sterile manner. A time-out procedure was performed. A Pfannenstiel skin incision was made with the scalpel and carried through to the underlying layer of fascia with the Bovie. The fascia was nicked in the midline and the incision extended laterally with the Pratt scissors. The superior aspect of the fascial incision was then grasped with Tiana clamps and elevated and the underlying rectus muscle dissected off bluntly and sharp with pratt scissors dense adhesions. Attention was then turned to the inferior aspect of the incision which, in similar fashion, was grasped and tented up with Tiana clamps and the rectus muscle dissected bluntly. The rectus muscles were then in the midline and the peritoneum identified, tented up and entered sharply with Metzenbaum scissors. The peritoneal incision was then extended superiorly and inferiorly with good visualization of the bladder. The Konrad O retractor or/ bladder blade was then inserted and the vesicouterine peritoneum identified, grasped with pickups and entered sharply with Metzenbaum scissors. This incision was then extended laterally and the bladder flap created digitally. The uterus incised in a low transverse fashion with the scalpel. The uterine incision was then extended with the bandage scissors. The infant was then delivered vacuum assisted in the cephalic presentation atraumatically. The nose and the mouth were suctioned with bulb and the cord clamped and cut. The cord was normal and had three vessels. Amniotic fluid was clear. The placenta was then removed manually and the uterus exteriorized and cleared of all clots and debris. The uterine incision was repaired with 0 Vicryl in a running-locked fashion. A second layer of the same suture was used to obtain excellent hemostasis. The gutters were cleared of all clots. The uterus was then returned to the abdomen. The rectus muscles were approximated with 3-0 chromic gut. The ON-Q pain management system placed. The fascia was reapproximated with 0 Vicryl in an interrupted running fashion. The skin was closed with Insorb?s subcuticular absorbable mayra. The patient tolerated the procedure well. The sponge, lap and needle counts were correct times three. The patient was given Ancef 2 gm intravenously immediately after delivery of the infant.
--- NOTE | 2022-04-07 15:45 | PC.NURSE ---
PT MOVED TO POST ROOM 11 FROM OR VIA BED. ORIENTED TO ROOM/CALL LIGHT. INSTRUCTED NOT TO GET UP OUT OF BED WITHOUT NURSING ASSISTANCE. DISCUSSED PLAN OF CARE, S/S TO REPORT, AND HOW TO CALL NSY TO GET UPDATE ON BABY.
[2022-04-07 16:08] LABS: Amphetamines Screen Urine Negative (Negative); Barbiturates Screen Urine Negative (Negative); Benzodiazepines Screen Urine Negative (Negative); Cocaine Screen Urine Negative (Negative); Opiate Screen Urine Negative (Negative); PCP Screen Urine Negative (Negative); THC Screen Urine Negative (Negative)
--- NOTE | 2022-04-07 16:39 | ANE.PACU2 ---
Inpatient post-anesthesia follow up: Airway intact: Yes Vital signs: Temperature 96.6 F Pulse Rate 86 Respiratory Rate 18 Blood Pressure 128/78 Pulse Oximetry Oxygen Delivery Me thod Room Air Oxygen Flow Rate Fraction of Inspir ed Oxygen Hydration adequate: Yes Nausea and vomiting: No Pain level: 1 Mental status: Baseline Additional Comments: EMR review, hx from RN
[2022-04-07] MEDS: dextrose 5%-lactated ringers 1,000 ML 125 ML IV (17:11)
--- NOTE | 2022-04-07 17:30 | PC.NURSE ---
mirtha care performed. pad/chux changed. ice and water given. pt states she would like something for anxiety as she is worried about baby
[2022-04-07] MEDS: docusate sodium 100 mg Capsule PO (17:54)
[2022-04-07] MEDS: hyDROXYzine 25 mg Capsule 50 MG PO (17:55)
[2022-04-07] MEDS: sodium chloride 0.9% 500 ML 999 ML IV (17:55)
--- NOTE | 2022-04-07 18:00 | PC.NURSE ---
Dr Cooper in room talking with mother about baby care.
[2022-04-07] MEDS: ketorolac 30 mg/mL INJ IVP (18:46)
[2022-04-07] MEDS: diphenhydrAMINE 50 mg/mL SDV 1mL 25 MG IVP (18:52)
[2022-04-07] MEDS: buprenorphine-naloxone 4-1 mg Film 2 EACH SUBLINGUAL (18:58)
[2022-04-07] MEDS: ARIPiprazole 10 mg Tablet 5 MG PO (21:07)
--- NOTE | 2022-04-07 22:00 | PC.NURSE ---
up to wheelchair, assisted to nursery to visit infant
[2022-04-07] MEDS: HYDROcodone-acetaminophen 5-325 mg Tablet PO (22:05)
[2022-04-08 01:30] VITALS: BP 100/64; PULSE 76; O2SAT 96
[2022-04-08] MEDS: ketorolac 30 mg/mL INJ IVP ×3 (02:10→13:54)
[2022-04-08 03:40] LABS: Hematocrit 26.1 % (37.0-47.0); Hemoglobin 8.7 g/dL (11.5-15.3); Mean Corpuscular HGB Conc 33.3 g/dL (30.0-36.0); Mean Corpuscular Hemoglobin 30.7 pg (28.0-34.0); Mean Corpuscular Volume 92.2 fl (81-99); Mean Platelet Volume 9.2 fL (7.4-10.4); Platelet Count 247 10^3/cmm (130-400); Red Blood Count 2.83 10^6/uL (4.1-5.3); Red Cell Distribution Width 13.3 % (12.1-15.1); White Blood Count 9.6 10^3/uL (4.0-10.0)
[2022-04-08 05:19] VITALS: BP 111/72; PULSE 80; RESP 18; TEMP 36.8; O2SAT 99
[2022-04-08] MEDS: HYDROcodone-acetaminophen 5-325 mg Tablet PO ×4 (05:41→19:20)
[2022-04-08] MEDS: buprenorphine-naloxone 4-1 mg Film 2 EACH SUBLINGUAL ×3 (09:05→20:20)
[2022-04-08 10:20] VITALS: BP 120/71; PULSE 79; RESP 17; TEMP 36.7
[2022-04-08] MEDS: nicotine 7 mg Patch 1 PATCH TRANSDERMA (10:50)
--- NOTE | 2022-04-08 12:12 | PC.NURSE ---
This nurse received in report conflict in custody of the previous child, this nurse went to the pt and sat down with her to ask if she has custody of previous child. The pt reported she is in a custody osborne and she doesn't understand the question this nurse was asking and called her elderly sitter, Mckenna Laurent. Pt called Mehran on speaker phone and this nurse at bedside, Orly reported that there is no open cases through the state, just a paternity custody suit at this time. This nurse will not make a hotline call at this time.
--- NOTE | 2022-04-08 13:32 | P.PN_ITS ---
Subjective Subjective: Mrs. Angela 36-year-old female status post repeat low transverse delivery postoperative day 1. Vitals/I&O/Wt Last Vital Signs Temp 98.2 F 04/08/22 05:19 Pulse 80 04/08/22 05:19 Resp 18 04/08/22 05:19 BP 111/72 04/08/22 05:19 Pulse Ox 99 04/08/22 05:19 O2 Del Method 04/08/22 05:19 04/07/22 04/08/22 04/08/22 22:59 06:59 14:59 Intake Total 2307.083 / 2307.083 Output Total 1150 / 1150 495 / 1645 Balance 1157.083 / 1157.083 -495 / 662.083 Weight last 48 hrs Weight 87.997 kg Physical Exam Narrative: GA: Alert and oriented ?3. HEENT: WNL. Heart: Regular rate and rhythm. Lungs: Clear to auscultation bilaterally. Abdomen: Bowel sounds present, nontender, minimal tenderness, incision clean and dry, no redness, pain or edema. GRAIN OILSEED OR PASTURE GROWER: No bleeding. Extremities: No edema, no cyanosis, no calves pain. Urinary Catheter Management: Lozoya Latex: Cath Placed During This Visit: yes Reason for Continuing Indwelling Catheter: Perioperative Use in Selected Surgeries Urinary Catheter Date of Insertion: 04/07/22 Urinary Catheter Time of Insertion: 13:50 Data : 04/08/22 03:00 A&P Assessment and plan (1) Term delivered: Mrs. Carr is status post repeat delivery postoperative day 1. She is afebrile and hemodynamically stable. Tolerating diet well. Ambulating without difficulty. Status: Acute Attestations Medical Necessity Statement*: In my professional opinion apparently diagnosis Coding Level of Care Code Acute Promotions Manager for Chg Fwd Diagnoses Term delivered O80
[2022-04-08 17:30] VITALS: BP 132/75; PULSE 80; RESP 17; O2SAT 98
[2022-04-08] MEDS: docusate sodium 100 mg Capsule PO (19:20)
[2022-04-08] MEDS: ferrous sulfate EC 325 mg Tablet PO (19:20)
[2022-04-08] MEDS: ARIPiprazole 10 mg Tablet 5 MG PO (20:23)
[2022-04-08 21:00] VITALS: BP 115/71; PULSE 91; RESP 18; TEMP 36.8
[2022-04-09] MEDS: HYDROcodone-acetaminophen 5-325 mg Tablet PO ×4 (00:36→13:26)
[2022-04-09 04:00] VITALS: BP 122/78; PULSE 89; RESP 18; TEMP 36.8
[2022-04-09] MEDS: buprenorphine-naloxone 4-1 mg Film 2 EACH SUBLINGUAL (06:31)
[2022-04-09] MEDS: docusate sodium 100 mg Capsule PO (08:33)
[2022-04-09] MEDS: prenatal vitamin Capsule 1 CAP PO (08:33)
[2022-04-09] MEDS: ibuprofen 800 mg tablet PO (08:33)
[2022-04-09 11:00] VITALS: BP 112/74; PULSE 76; RESP 18; TEMP 36.8
--- NOTE | 2022-04-09 12:24 | P.DS_ITS ---
Discharge Providers FONDANT MACHINE OPERATOR Date of Admission: 04/07/22 11:38 Date of Discharge: 04/09/22 Attending Provider at Admission: Travis Anderson MD Attending Provider at Discharge: Travis Anderson MD Primary FONDANT MACHINE OPERATOR: Travis Anderson MD Diagnoses at Discharge Discharge Diagnosis (1) Term delivered: Status: Acute (2) Status post delivery: Status: Acute Reason for Visit Reason for Visit: Poss ROM Brief History: Mrs. Sierra 36-year-old female with term came to labor and delivery complaining of possible rupture membranes. It as confirmed diagnosed with prelabor rupture of membranes. Hospital Course Hospital Course Mrs. Sierra 36-year-old female with term came to labor and delivery complaining of possible rupture membranes. It as confirmed diagnosed with p relabor rupture of membranes. With previous delivery she had decided to go with a repeat delivery which was performed without complications. Postop observation was uneventful. He is afebrile hemodynamically stable postoperative day 1. Tolerating diet well. Ambulating without difficulty. Information Peripartum Data: Delivery Method: Physical Exam Narrative: GA: Alert and oriented ?3. HEENT: WNL. Heart: Regular rate and rhythm. Breasts: engorged Nipples - skin intact Lungs: Clear to auscultation bilaterally. Abdomen: Bowel sounds present, nontender, minimal tenderness, incision clean and dry, no redness, pain or edema. SALESFORCE TRAINER:normal lochia bleeding. Extremities: No edema, no cyanosis, no calves pain, no tenderness. Urinary Catheter Management: Lozoya Latex: Cath Placed During This Visit: yes Reason for Continuing Indwelling Catheter: Perioperative Use in Selected Surgeries Urinary Catheter Date of Insertion: 04/07/22 Urinary Catheter Time of Insertion: 13:50 History History History 4 Term 3 0 Miscarriages/Ectopic 0 Living Children 3 Discharge Data Studies Completed and Pending Pending at discharge Category Date Time Status RED BLOOD CELLS [Leukocyte Reduced RBC] Routine Lab 04/07/22 11:01 Results Type and Screen Routine Lab 04/07/22 11:01 Results Laboratory Results WBC 9.6 10^3/uL (4.0-10.0) 04/08/22 03:00 RBC 2.83 10^6/uL (4.1-5.3) L 04/08/22 03:00 Hgb 8.7 g/dL (11.5-15.3) L 04/08/22 03:00 Hct 26.1 % (37.0-47.0) L 04/08/22 03:00 MCV 92.2 fl (81-99) 04/08/22 03:00 MCH 30.7 pg (28.0-34.0) 04/08/22 03:00 MCHC 33.3 g/dL (30.0-36.0) 04/08/22 03:00 RDW 13.3 % (12.1-15.1) 04/08/22 03:00 Plt Count 247 10^3/cmm (130-400) 04/08/22 03:00 MPV 9.2 fL (7.4-10.4) 04/08/22 03:00 Neut % (Auto) 75.7 % 04/07/22 11:00 Lymph % (Auto) 17.3 % 04/07/22 11:00 [place] % (Auto) 5.6 % 04/07/22 11:00 Eos % (Auto) 0.5 % 04/07/22 11:00 Baso % (Auto) 0.3 % 04/07/22 11:00 Neut # (Auto) 7.53 10^3/uL (1.8-7.7) 04/07/22 11:00 Lymph # (Auto) 1.7 10^3/uL (0.8-4.8) 04/07/22 11:00 [place] # (Auto) 0.6 10^3/uL (0.2-0.9) 04/07/22 11:00 Eos # (Auto) 0.1 10^3/uL (0.0-0.8) 04/07/22 11:00 Baso # (Auto) 0.0 10^3/uL (0.0-0.1) 04/07/22 11:00 Nucleated RBC % (auto) 0 % 04/07/22 11:00 Nucleated RBCs # 0.0 /100WBC 04/07/22 11:00 Urine Opiates Screen Negative ng/mL (Negative) 04/07/22 13:50 Ur Barbiturates Screen Negative ng/mL (Negative) 04/07/22 13:50 Ur Phencyclidine Scrn Negative ng/mL (Negative) 04/07/22 13:50 Ur Amphetamines Screen Negative ng/mL (Negative) 04/07/22 13:50 U Benzodiazepines Scrn Negative ng/mL (Negative) 04/07/22 13:50 Urine Cocaine Screen Negative ng/mL (Negative) 04/07/22 13:50 U Marijuana (THC) Screen Negative ng/mL (Negative) 04/07/22 13:50 Blood Type A Positive 04/07/22 11:01 Rho(D) Type Positive 04/07/22 11:01 Antibody Screen Negative 04/07/22 11:01 Crossmatch See Detail 04/07/22 11:01 Vitals Last Vital Signs Temp 98.2 F 04/09/22 11:00 Pulse 76 04/09/22 11:00 Resp 18 04/09/22 11:00 BP 112/74 04/09/22 11:00 Pulse Ox 98 04/08/22 17:30 O2 Del Method 04/09/22 11:00 Discharge Plan Discharge Patient Disposition: Home Condition: Stable Prescriptions: New hydrocodone-acetaminophen 5-325 mg tablet 1 tab PO Q4H PRN (Reason: pain) Qty: 30 0RF acetaminophen 325 mg capsule 325 mg PO Q4H PRN (Reason: fever or pain) Qty: 60 0RF docusate sodium [Colace] 100 mg capsule 100 mg PO BID Qty: 60 0RF ferrous sulfate [Iron (ferrous sulfate)] 325 mg (65 mg iron) tablet 325 mg PO BID Qty: 60 0RF ibuprofen 800 mg tablet 800 mg PO TID PRN (Reason: pain) Qty: 60 0RF Continued Gummies 400 mcg-35 mg- 25 mg-5 mg tablet,chewable 2 tab PO .daily nicotine 7 mg/24 hr patch 24 hour 1 patch transdermal Q24H aripiprazole [Abilify] 5 mg tablet 5 mg PO DAILY buprenorphine-naloxone 8-2 mg Tablet, Sublingual 1 tab SUBLINGUAL TID Iron (ferrous sulfate) 325 mg (65 mg iron) Tablet 325 mg PO DAILY Discharge Orders: Discharge Order (Routine); Ordered 04/09/22 Ordered By: Travis Anderson Referrals: Travis Anderson MD [Physician] - 2 weeks Discharge Diet: Advance as tolerated and Usual diet Discharge Activity: Limit activity as instructed Patient Instructions: Depression (DC), Bleeding (DC), Preeclampsia and Eclampsia After Delivery (GEN), OB WHC, OB Discharge Report, OB Food/Drug Interaction Guide, Opioid Safety, OB Home Care Activity Restrictions/Additional Instructions: 1. Please call [facility] on next working day to make your post-operative appointment in 2 weeks. 2. Please stay home until you come back to the clinic on first post-operative check up. 3. Please follow instructions on your medications CAREFULLY. 4. If you have abdominal incision, do not cover it unless dressing is necessary because of drainage. OK to shower, but avoid bath. Leave steri-strips until they fall off. If they are still on one week after surgery, you may remove them. 5. If you had vaginal surgery or vaginal repair, Dr. Anderson may instruct you to take SITZ bath. 6. Yellow, blood tinged odorous vaginal discharge is usually normal after hysterectomy or vaginal surgeries. 7. No sexual intercourse, tampons, or douches until you are completely released from the post-operative care. 8. Avoid constipation by eating right and maybe using some Metamucil or Milk of Magnesia. 9. All prescription refills are given during the working hours. Please do no wait till it runs out. Call the clinic at [phone] before your medication runs out. The clinic will get in touch with your doctor to prescribe medications if necessary. 10. Please remain within 40 mile radius from our hospital because emergencies do happen now and then during the post-operative period. 11. If you have stairs at home, take one step at a time slowly and minimize the number of trips. It helps to stay in one floor for the next few days. No lifting except what you can lift by one hand until you are released from the post-operative care. 12. Driving is discouraged until you are well healed. It may be 3-4 weeks before you feel strong enough to drive. You should be able to turn and look through the rear window without pain and you should be able to push the brake pedal very hard without pain before you drive. No fast rules, but SAFETY should be your primary concern. DO NOT drive if you are on sedating medications such as narcotics. 13. Call the clinic (during working hours) to make urgent appointment or go to the Emergency room, if any of the following occurs: i. Vaginal bleeding becomes heavy, more than a period. ii. Incision becomes red and sore, or drains pus. iii. Your temperature is over 100.4 or you have chill. iv. IV site becomes red and swollen (a little ``knot?? is usually OK) v. Persistent nausea and vomiting vi. Persistent constipation or diarrhea vii. Rash or allergic reaction to medications. Discharge Attestations FONDANT MACHINE OPERATOR Time Spent in Discharge Care*: greater than 30 min Coding Level of Care Code Acute Business Info Consultant for Chg Fwd Diagnoses Term delivered O80 Status post delivery Z98.891
[2022-04-09 13:27] VITALS: BP 118/71; PULSE 76; RESP 18; TEMP 36.7
[2022-04-09 13:30] VITALS: BP 118/71; PULSE 76; RESP 18; TEMP 36.7
--- NOTE | 2022-04-09 15:04 | PC.NURSE ---
Patient staying as a guest on OB floor with baby.
== END 2022-04-09 13:30 | disposition home or self-care (01) | DRG 787 ==
LOC: OPOB 11:38 → OBGYN 04-08 08:39
PROVIDERS: Admitting Provider Obstetrics & Gynecology; Visit Provider Obstetrics & Gynecology
PROC: (CPT 59514; principal; 2022-04-07 13:30)
DX: O42.92 Full-term premature rupture of membranes, unspecified as to length of time between rupture and onset of labor (principal); O99.324 Drug use complicating childbirth; F19.10 Other psychoactive substance abuse, uncomplicated; O99.334 Smoking (tobacco) complicating childbirth; F17.210 Nicotine dependence, cigarettes, uncomplicated; O99.02 Anemia complicating childbirth; D64.9 Anemia, unspecified; Z3A.37 37 weeks gestation of pregnancy; Z37.0 Single live birth; O34.211 Maternal care for low transverse scar from previous cesarean delivery; N85.8 Other specified noninflammatory disorders of uterus
CPT/HCPCS: 36415; 51702; 59025; 80306; 83986; 85025; 85027; 86850; 86900; 86920; 99211; C9290; J0573; J1200; J1885; J2274; J2405; J2765; J3010; J3490; J7030; J7040

== ENCOUNTER → 2022-05-20 13:18 | Outpatient (BNVA) | payer MEDICAID, SELFPAY | PROVIDERS: Visit Provider Obstetrics & Gynecology | DX: Z30.9 Encounter for contraceptive management, unspecified (principal) | CPT/HCPCS: 81025 ==

== ENCOUNTER 2022-12-28 00:12 | Emergency (ER) | payer MEDICAID, SELFPAY ==
[2022-12-28 00:16] VITALS: BP 130/83; PULSE 98; RESP 14; TEMP 36.8; O2SAT 98; BMI 21.9
--- NOTE | 2022-12-28 00:28 | W.ED.FEMALGU ---
HPI - Female Genitourinary General: Chief complaint: Urogenital-Female Stated complaint: vaginal pressure Time Seen by Provider: 12/28/22 00:21 Source: patient Mode of arrival: ambulatory Limitations: no limitations History of Present Illness: 37-year-old female states that over the last day she been having worsening dysuria throughout the day states that it mosley like fire every time she urinated and is having increased urgency. She had some slight suprapubic pain she denies any discharge denies any vaginal bleeding she denies any flank pain denies any fever or vomiting. Associated symptoms: Deny abdominal pain, headache(s) or nausea Review of Systems Const: Denies: fever(s), chills or body aches ENMT: Denies: throat pain or dental pain Card: Denies: chest pain Resp: Denies: dyspnea GI: Denies: abdominal pain, nausea, vomiting or diarrhea : Reports: dysuria, urinary frequency and urinary urgency Musc: Denies: neck pain or back pain Skin/Breast: Denies: rash Neuro: Denies: headache(s) PFSH ED PFSH: Surgical History H/O section 04/20/[address] repeat low transverse by Dr Anderson 2004- Performed by Dr. Jimenez at [facility] in [place], [place] H/O dilation and curettage 2002- Retained placenta per patient. Performed at [facility] in [place], [place] History of bunionectomy Family History Father Hypertension Hyperlipidemia Grandfather Diabetes maternal Heart disease maternal Grandmother Stroke paternal great Family/Other FH: mental illness cousin Breast cancer, Onset Age: 35 maternal great aunt Denies family history of Colon cancer Ovarian cancer Clotting disorder Anesthesia complication Bleeding disorder Uterine cancer Thyroid condition Social History Smoking and tobacco status: current every day smoker (1 cigarette per day ) Substance/Drug Use: former Date of last use: 2009, opiods and marijuana Physical Exam Const: COMMON NORMALS: no acute distress, patient oriented x3 and healthy appearing HENMT: COMMON NORMALS: normocephalic and atraumatic HEAD & SCALP: normocephalic and atraumatic Eye: COMMON NORMALS: conjunctivae normal CONJUNCTIVA: Yes conjunctivae normal Neck/C-Spine: COMMON NORMALS: full ROM and supple Chest: COMMONS NORMALS: normal inspection of the chest Resp: COMMON NORMALS: normal respiratory effort Cardio: COMMON NORMALS: regular rate, regular rhythm and No murmurs present (Cardio) RATE: regular rate RHYTHM: regular rhythm GI: COMMON NORMALS: Normal to inspection, nondistended, normoactive bowel sounds present, Soft to palpation, non-tender and no masses PALPATION: Yes Soft to palpation Extremity: COMMON NORMALS: normal to inspection and full ROM Neuro: COMMON NORMALS: patient oriented x3, moves all extremities and no focal motor deficits Psych: COMMON NORMALS: mental status grossly normal, Normal thought process present and cooperative THOUGHT PROCESS: Normal thought process present Skin: COMMON NORMALS: no rashes or lesions noted and no wounds GENERAL SKIN EXAM: no rashes or lesions noted Course Vital Signs: Vital signs: Vital Signs Temperature 98.3 F 12/28/22 00:16 Pulse Rate 98 12/28/22 00:16 Respiratory Rate 14 12/28/22 00:16 Blood Pressure 130/83 12/28/22 00:16 Pulse Oximetry 98 12/28/22 00:16 Oxygen Delivery Me thod Room Air 12/28/22 00:16 MDM - Female Medical Decision Making Patient presents here with urinary tract infection she has no signs of acute surgical abdomen her abdominal exam is benign we will give her a dose of Rocephin here start her on Keflex she is to follow-up with her PCP and return if worsening she understands agrees to plan. Medical Records I reviewed the patient's medical records. Lab Data I reviewed the patient's lab results. Laboratory Results Urine Color Light yellow (Yellow) 12/28/22 00:37 Urine Appearance Cloudy (CLEAR) A 12/28/22 00:37 Urine pH 6 (5-7) 12/28/22 00:37 Ur Specific [place] 1.020 (1.005-1.030) 12/28/22 00:37 Urine Protein 2+ (Negative) H 12/28/22 00:37 Urine Glucose (UA) Norm (Normal) 12/28/22 00:37 Urine Ketones Negative (Negative) 12/28/22 00:37 Urine Blood 3+ (Negative) H 12/28/22 00:37 Urine Nitrate Positive (Negative) H 12/28/22 00:37 Urine Bilirubin Neg (Negative) 12/28/22 00:37 Urine Urobilinogen 1 mg/dL (Negative) H 12/28/22 00:37 Ur Leukocyte Esterase 2+ (Negative) H 12/28/22 00:37 Urine RBC 50-80 /hpf (0-2) H 12/28/22 00:37 Urine WBC 40-55 /hpf (0-5) H 12/28/22 00:37 Ur Squamous Epith Cells 5-10 /hpf (0-5) H 12/28/22 00:37 Amorphous Sediment Not Reportable 12/28/22 00:37 Urine Bacteria 4+ /hpf (NONE) H 12/28/22 00:37 Urine Mucus 3+ /hpf 12/28/22 00:37 Discharge Plan Discharge Patient Disposition: Home Clinical Impression: Urinary tract infection Condition: Stable Prescriptions: New cephalexin 500 mg capsule 500 mg PO TID 7 Days Qty: 21 0RF No Action dextroamphetamine-amphetamine [Adderall] 5 mg tablet 5 mg PO BID Rx Instructions: administer doses at least 4-6 hours apart aripiprazole [Abilify] 5 mg tablet 5 mg PO DAILY ferrous sulfate 250 mg (50 mg iron) tablet extended release 250 mg PO DAILY norgestimate-ethinyl estradiol [Estarylla] 0.25-35 mg-mcg tablet See Rx Instructions .ROUTE .COMPLEX Qty: 84 3RF Dose Instruction: TAKE 1 TABLET BY MOUTH DAILY Rx Instructions: TAKE 1 TABLET BY MOUTH DAILY buprenorphine-naloxone 8-2 mg Tablet, Sublingual 1 tab SUBLINGUAL TID Discharge Orders: Discharge ED (Routine); Ordered 12/28/22 Ordered By: Shoaib Salcido Discharge Diet: Advance as tolerated Discharge Activity: Resume usual activity Patient Instructions: Urinary Tract Infection in Women (ED) Coding Level of Care Code ED Color Weigher for Betsy Ahmadi
[2022-12-28 00:49] LABS: Add Urine Microscopic? YES; Bilirubin Urine Neg (Negative); Blood Urine 3+ (Negative); Glucose Urine UA Norm (Normal); Ketones Urine Negative (Negative); Leukocyte Esterase Urine 2+ (Negative); Nitrate Urine Positive (Negative); Protein Urine 2+ (Negative); Urine Appearance Cloudy (CLEAR); Urine Color Light yellow (Yellow); Urobilinogen Urine 1 mg/dL (Negative); pH Urine 6 (5-7)
[2022-12-28 00:50] LABS: Add Urine Culture? Yes; Bacteria Urine 4+ /hpf; Mucus Urine 3+ /hpf; RBC Urine 50-80 /hpf (0-2); WBC Urine 40-55 /hpf (0-5)
[2022-12-28] MEDS: cefTRIAXone 1,000 MG in sodium chloride 0.9% (plus) 50 ML 100 MG IV (01:08)
[2022-12-28] MEDS: ketorolac 30 mg/mL INJ 15 MG IVP (01:41)
--- NOTE | 2022-12-30 12:23 | DCPLANNER ---
database manager called patient due to no primary care physician - no answer at this time.
== END 2022-12-28 02:01 | disposition home or self-care (01) ==
PROVIDERS: Emergency Provider Emergency Medicine
DX: N39.0 Urinary tract infection, site not specified (principal)
CPT/HCPCS: 81001; 87077; 87086; 87186; 96365; 96375; 99284; J0696; J1885

== ENCOUNTER → 2023-08-13 17:53 | Outpatient (BNVA) | payer MEDICAID, SELFPAY | PROVIDERS: Visit Provider Nurse Practitioner | DX: R09.81 Nasal congestion (principal); J06.9 Acute upper respiratory infection, unspecified | CPT/HCPCS: 87400; 87426 ==

== ENCOUNTER → 2024-02-29 10:36 | Outpatient (BNVA) | payer MEDICAID, SELFPAY | DX: Z20.2 Contact with and (suspected) exposure to infections with a predominantly sexual mode of transmission (principal) | CPT/HCPCS: 87491; 87591 ==

== ENCOUNTER → 2024-03-26 17:56 | Outpatient (BNVA) | payer MEDICAID, SELFPAY | PROVIDERS: Visit Provider Emergency Medicine | DX: R09.81 Nasal congestion (principal) | CPT/HCPCS: 87426 ==

== ENCOUNTER 2024-11-08 11:29 | Emergency (ER) | payer MEDICAID, SELFPAY ==
[2024-11-08 12:00] VITALS: BP 136/94; PULSE 92; RESP 18; TEMP 36.7; O2SAT 97; BMI 22.7
--- NOTE | 2024-11-08 12:08 | W.ED.BACK ---
HPI - Back Pain/Injury General: Chief Complaint: Back Pain/Injury Stated Complaint: back pain Time Seen by Provider: 11/08/24 11:48 History of Present Illness: 38-year-old female presents emergency room with several different complaints she has been coughing and wheezing she is a smoker cough has been nonproductive. She is also complaining she has some low back pain particularly on the left she relates it to having used moving some heavy items on a 2 wheeled nhung when she is bending over or moving. She also believes she is approximately 3 to 4 weeks although she has her periods been very irregular/not entirely sure she had a home test that was positive she has now been having a little bit of vaginal spotting bleeding very light. No dysuria urgency or frequency. No vomiting or diarrhea no headache. Associated symptoms: Deny abdominal pain, chills, dysuria, fever(s) or urinary urgency Related Data Home Medications ?Medication ?Instructions ?Recorded ?Confirmed buprenorphine 8 mg-naloxone 2 mg 1 tab sublingual TID 08/29/19 11/08/24 sublingual tablet dextroamphetamine-amphetamine 10 10 mg PO TID 12/28/23 11/08/24 mg tablet (Adderall) aripiprazole 10 mg tablet 10 mg PO DAILY 11/08/24 11/08/24 buprenorphine 128 mg/0.36 mL 0.36 mg SUBCUT Q28D 11/08/24 11/08/24 solution,ext.rel.subcutaneous syringe (Brixadi Monthly) Previous Rx's ?Medication ?Instructions ?Recorded albuterol sulfate 90 mcg/actuation 2 inh inhalation Q4H PRN shortness 11/08/24 aerosol inhaler of breath or wheezing #18 grams cefdinir 300 mg capsule 300 mg PO BID #14 caps 11/08/24 Allergies Allergy/AdvReac Type Severity Reaction Status Date / Time beeswax Allergy unknown Verified 09/24/24 11:25 Review of Systems Const: Denies: fever(s) or chills Card: Denies: chest pain Resp: Denies: dyspnea GI: Denies: abdominal pain : Denies: dysuria, urinary frequency or urinary urgency Musc: Denies: neck pain or back pain Skin/Breast: Denies: rash PFSH ED PFSH: Surgical History H/O section 04/20/18 repeat low transverse by Dr Anderson 2003- Performed by Dr. Jimenez at [facility] in [place], [place]. History of bunionectomy H/O dilation and curettage 2002- Retained placenta per patient. Performed at [facility] in [place], [place]. Family History Father Hypertension Hyperlipidemia Grandfather Diabetes maternal Heart disease maternal Grandmother Stroke paternal great Family/Other FH: mental illness cousin Breast cancer, Onset Age: 35 maternal great aunt Denies family history of Colon cancer Ovarian cancer Clotting disorder Anesthesia complication Bleeding disorder Uterine cancer Thyroid disease Social History Smoking and tobacco/nicotine status: current every day tobacco/nicotine user Substance/Drug Use: former Date of last use: 2009, opiods and marijuana Physical Exam Const: COMMON NORMALS: no acute distress GENERAL APPEARANCE: cooperative and comfortable ORIENTATION/CONSCIOUSNESS: Yes awake, Yes oriented to person, Yes oriented to place and Yes oriented to time HENMT: COMMON NORMALS: normocephalic, atraumatic and hearing grossly normal bilaterally HEAD & SCALP: normocephalic and atraumatic Resp: AUSCULTATION: rhonchi and wheezes Cardio: COMMON NORMALS: regular rate, regular rhythm and No murmurs present (Cardio) RATE: regular rate RHYTHM: regular rhythm GI: COMMON NORMALS: Soft to palpation and No hepatosplenomegaly present AUSCULTATION: Yes normoactive bowel sounds PALPATION: Yes Soft to palpation, No Tenderness to palpation present (GI), No Guarding due to palpation present (GI) and Yes No hepatosplenomegaly present Extremity: COMMON NORMALS: normal to inspection, capillary refill normal, no clubbing, cyanosis or edema, no calf tenderness and no pedal edema Neuro: SENSORIUM/ORIENTATION: Yes oriented to person, Yes oriented to place and Yes oriented to time Skin: COMMON NORMALS: no rashes or lesions noted GENERAL SKIN EXAM: no rashes or lesions noted Course Vital Signs: Vital signs: Vital Signs Temperature 98.1 F 11/08/24 12:00 Pulse Rate 88 11/08/24 15:25 Respiratory Rate 18 11/08/24 12:00 Blood Pressure 110/75 11/08/24 15:25 Pulse Oximetry 95 11/08/24 15:25 Oxygen Delivery Me thod Room Air 11/08/24 12:00 MDM - Back Pain/Injury Medical Decision Making Patient's beta-hCG is [address] her in the 5 to 6-week range. This may be an implantation bleed or may be threatened miscarriage. She is definitely not nearly as far along as she had anticipated. Discussed with below 1500 will not be able to see much on ultrasound. She is not having significant mildly now. Urine was normal. Will have to recheck her beta-hCG in 3 days As to her cough and congestion she does a little bit of wheezing and rhonchi we will go ahead and put her on Ceftin and have her use albuterol as needed. Finally for her back after use Tylenol or ibuprofen. Think this is more musculoskeletal. If she has any worsening or change symptoms recheck. Labs 11/08/24 12:21 11/08/24 12:21 Laboratory Results WBC 10.24 10^3/uL (3.29-11.43) 11/08/24 12:21 RBC 3.94 10^6/uL (3.85-5.65) 11/08/24 12:21 Hgb 11.50 g/dL (11.27-16.99) 11/08/24 12:21 Hct 35.4 % (36-47) L 11/08/24 12:21 MCV 89.8 fl (85-98) 11/08/24 12:21 MCH 29.2 pg (27-33) 11/08/24 12:21 MCHC 32.5 g/dL (30-55) 11/08/24 12:21 RDW 12.1 % (12.1-15.1) 11/08/24 12:21 Plt Count 284 10^3/cmm (157-399) 11/08/24 12:21 MPV 8.6 fL (7.4-10.4) 11/08/24 12:21 Neut % (Auto) 80.4 % 11/08/24 12:21 Lymph % (Auto) 11.8 % 11/08/24 12:21 [place] % (Auto) 6.9 % 11/08/24 12:21 Eos % (Auto) 0.4 % 11/08/24 12:21 Baso % (Auto) 0.2 % 11/08/24 12:21 Neut # (Auto) 8.23 10^3/uL (1.8-7.7) H 11/08/24 12:21 Lymph # (Auto) 1.2 10^3/uL (0.8-4.8) 11/08/24 12:21 [place] # (Auto) 0.7 10^3/uL (0.2-0.9) 11/08/24 12:21 Eos # (Auto) 0.0 10^3/uL (0.0-0.8) 11/08/24 12:21 Baso # (Auto) 0.0 10^3/uL (0.0-0.1) 11/08/24 12:21 Nucleated RBC % (auto) 0 % 11/08/24 12:21 Nucleated RBCs # 0.0 /100WBC 11/08/24 12:21 Sodium 132 mmol/L (136-145) L 11/08/24 12:21 Potassium 3.6 mmol/L (3.5-5.1) 11/08/24 12:21 Chloride 98 mmol/L (98-107) 11/08/24 12:21 Carbon Dioxide 24 mmol/L (22-29) 11/08/24 12:21 Anion Gap 13.6 (5-19) 11/08/24 12:21 BUN 5 mg/dL (6-20) L 11/08/24 12:21 Creatinine 0.4 mg/dL (0.5-0.9) L 11/08/24 12:21 GFR Calculation 176.8 mL/min (90-130) H 11/08/24 12:21 Glucose 101 mg/dL (65-115) 11/08/24 12:21 Calculated Osmolality 271 mOsm/kg (285-295) L 11/08/24 12:21 Calcium 8.3 mg/dL (8.5-10.5) L 11/08/24 12:21 Total Bilirubin 0.3 mg/dL (0.15-1.2) 11/08/24 12:21 AST 13 U/L (0-32) 11/08/24 12:21 ALT 10 U/L (0-33) 11/08/24 12:21 Alkaline Phosphatase 82 U/L (35-105) 11/08/24 12:21 Total Protein 6.8 g/dL (6.6-8.7) 11/08/24 12:21 Albumin 3.3 g/dL (3.5-5.2) L 11/08/24 12:21 Globulin 3.5 g/dL (1.3-4.6) 11/08/24 12:21 HCG, Qual Positive (Negative) H 11/08/24 12:21 Ser , Semi-Qnt 1096.00 mIU/mL 11/08/24 12:21 Urine Color Yellow (Yellow) 11/08/24 13:45 Urine Appearance Clear (CLEAR) 11/08/24 13:45 Urine pH 6.5 (5-7) 11/08/24 13:45 Ur Specific [place] 1.008 (1.005-1.030) 11/08/24 13:45 Urine Protein Negative (Negative) 11/08/24 13:45 Urine Glucose (UA) Negative (Normal) 11/08/24 13:45 Urine Ketones Negative (Negative) 11/08/24 13:45 Urine Blood Negative (Negative) 11/08/24 13:45 Urine Nitrate Negative (Negative) 11/08/24 13:45 Urine Bilirubin Negative (Negative) 11/08/24 13:45 Urine Urobilinogen 1.0 mg/dL (Negative) 11/08/24 13:45 Ur Leukocyte Esterase Negative (Negative) 11/08/24 13:45 Urine RBC 0-2 /hpf (0-2) 11/08/24 13:45 Urine WBC 0-5 /hpf (0-5) 11/08/24 13:45 Ur Squamous Epith Cells 0-5 /hpf (0-5) 11/08/24 13:45 Amorphous Sediment Not Reportable 11/08/24 13:45 Urine Bacteria None seen /hpf (NONE) 11/08/24 13:45 Hyaline Casts 0-4 /lpf H 11/08/24 13:45 No radiology studies performed this visit Discharge Plan Discharge Patient Disposition: Home Clinical Impression: Miscarriage, threatened, early , Strain of lumbar region, Bronchitis Condition: Stable Prescriptions: New albuterol sulfate 90 mcg/actuation HFA aerosol inhaler 2 inh INHALATION Q4H PRN (Reason: shortness of breath or wheezing) Qty: 18 0RF cefdinir 300 mg capsule 300 mg PO BID Qty: 14 0RF No Action dextroamphetamine-amphetamine [Adderall] 10 mg tablet 10 mg PO TID Rx Instructions: administer doses at least 4-6 hours apart buprenorphine-naloxone 8-2 mg Tablet, Sublingual 1 tab SUBLINGUAL TID aripiprazole 10 mg tablet 10 mg PO DAILY Brixadi 128 mg/0.36 mL solution, extended rel syringe 0.36 mg SUBCUT Q28D Discharge Orders: Discharge ED (Routine); Ordered 11/08/24 Ordered By: Griffin Anderson Discharge Diet: Usual diet Discharge Activity: Increase activity as tolerated Patient Instructions: Threatened Miscarriage (ED), Acute Bronchitis (ED), Low Back Strain (ED), Lower Back Exercises (ED), Opioid Safety, Pain Management Activity Restrictions/Additional Instructions: Thank you for choosing [facility] for your healthcare needs today. It is very important that you follow up as instructed or that you return to the Emergency Department should you have concerns or if your condition changes or worsens in any way. You are seen emergency room with 3 different issues first your complaint of vaginal spotting. Your beta-hCG is less than 1500 so an ultrasound is not helpful. You should have a beta-hCG rechecked in approximately 3 days at the [facility]. Ultrasound is not helpful at this point in because it is too early. If the beta-hCG goes up is a positive sign that this may have just been bleeding from an implantation of the fetus on the wall of the uterus. If the beta-hCG decreases that would be a sign that you are not having a miscarriage. She also complained of being short of breath and coughing. On exam there is mild wheezing. Recommend use albuterol as needed and will start you on oral antibiotics cefdinir 1 tablet twice a day for 7 days. He also complained of some low back pain after doing exertional work this is likely musculoskeletal in nature. Urine did not show signs of infection or blood. Recommend use Tylenol as needed for this avoid heavy lifting. Print Language: Ukrainian Coding Level of Care Code ED Train Reservation Clerk for Betsy Ahmadi
[2024-11-08 12:31] LABS: Basophils % 0.2 %; Eosinophils % 0.4 %; Hematocrit 35.4 % (36-47); Lymphocytes # 1.2 10^3/uL (0.8-4.8); Lymphocytes % 11.8 %; Mean Corpuscular HGB Conc 32.5 g/dL (30-55); Mean Corpuscular Hemoglobin 29.2 pg (27-33); Mean Corpuscular Volume 89.8 fl (85-98); Mean Platelet Volume 8.6 fL (7.4-10.4); Monocytes # 0.7 10^3/uL (0.2-0.9); Monocytes % 6.9 %; Neutrophils # 8.23 10^3/uL (1.8-7.7); Neutrophils % 80.4 %; Nucleated Red Blood Cells % 0 %; Platelet Count 284 10^3/cmm (157-399); Red Blood Count 3.94 10^6/uL (3.85-5.65); Red Cell Distribution Width 12.1 % (12.1-15.1); White Blood Count 10.24 10^3/uL (3.29-11.43)
[2024-11-08 12:40] LABS: HCG, Serum Qual Positive (Negative)
[2024-11-08 12:51] LABS: Alanine Aminotransferase 10 U/L (0-33); Albumin Level 3.3 g/dL (3.5-5.2); Alkaline Phosphatase 82 U/L (35-105); Anion Gap 13.6 (5-19); Aspartate Amino Transferase 13 U/L (0-32); Blood Urea Nitrogen 5 mg/dL (6-20); Calcium 8.3 mg/dL (8.5-10.5); Carbon Dioxide 24 mmol/L (22-29); Chloride 98 mmol/L (98-107); Creatinine Clr Calc Pharmacy 186.7297; Globulin 3.5 g/dL (1.3-4.6); Glomerular Filtration Rate 176.8 mL/min (90-130); Glucose 101 mg/dL (65-115); Osmolality Calculated 271 mOsm/kg (285-295); Potassium 3.6 mmol/L (3.5-5.1); Sodium 132 mmol/L (136-145); Total Bilirubin 0.3 mg/dL (0.15-1.2); Total Protein 6.8 g/dL (6.6-8.7)
[2024-11-08 13:05] VITALS: PULSE 85; O2SAT 99
[2024-11-08] MEDS: dexamethasone 10 mg/mL INJ IV (13:34)
[2024-11-08] MEDS: orphenadrine 30 mg/mL Inj 2 mL 60 MG IV (13:34)
[2024-11-08 13:35] VITALS: PULSE 89; O2SAT 96
--- NOTE | 2024-11-08 13:46 | ECG_ITS ---
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: : 1985 Requested By: Griffin Gavin Order Number: [id number] Reading MD: ARPAN MEDEROS Measurements Intervals [place] Rate: 89 P: 26 AR: 120 QRS: 55 QRSD: 95 T: 60 QT: 362 QTc: 441 Interpretive Statements SINUS RHYTHM POSSIBLE RIGHT VENTRICULAR CONDUCTION DELAY [RSR (QR) IN V1/V2] Compared to ECG 08/06/2019 09:55:04 Sinus arrhythmia no longer present Atrial abnormality no longer present Prolonged QT interval no longer present Electronically Signed On 11-11-2024 21:00:18 CDT by ARPAN MEDEROS [email or web address]
[2024-11-08 14:05] VITALS: BP 110/75; PULSE 89; O2SAT 96
[2024-11-08 14:27] LABS: Bilirubin Urine Negative (Negative); Blood Urine Negative (Negative); Glucose Urine UA Negative (Normal); Ketones Urine Negative (Negative); Leukocyte Esterase Urine Negative (Negative); Nitrate Urine Negative (Negative); Protein Urine Negative (Negative); Specific Gravity, Urine 1.008 (1.005-1.030); Urine Appearance Clear (CLEAR); Urine Color Yellow (Yellow); pH Urine 6.5 (5-7)
[2024-11-08 14:31] LABS: Add Urine Microscopic? YES; Bacteria Urine None Seen /hpf; Hyaline Casts Urine 0-4 /lpf; RBC Urine 0-2 /hpf (0-2); Squamous Epithelial Cell Urine 0-5 /hpf (0-5); WBC Urine 0-5 /hpf (0-5)
[2024-11-08 14:35] VITALS: BP 110/68; PULSE 86; O2SAT 96
[2024-11-08 15:25] VITALS: BP 110/75; PULSE 88; O2SAT 95
== END 2024-11-08 15:25 | disposition home or self-care (01) ==
PROVIDERS: Emergency Provider Family Medicine
DX: O20.0 Threatened abortion (principal); Z3A.01 Less than 8 weeks gestation of pregnancy; S39.012A Strain of muscle, fascia and tendon of lower back, initial encounter; J40 Bronchitis, not specified as acute or chronic; Z72.0 Tobacco use; X58.XXXA Exposure to other specified factors, initial encounter
CPT/HCPCS: 36415; 80053; 81001; 84702; 84703; 85025; 93005; 96374; 96375; 99284; J1100; J2360

== ENCOUNTER → 2024-11-13 07:57 | Outpatient (BNVA) | payer MEDICAID, SELFPAY | PROVIDERS: Visit Provider Nurse Practitioner Women's Health | DX: N91.2 Amenorrhea, unspecified (principal); N92.6 Irregular menstruation, unspecified; F15.10 Other stimulant abuse, uncomplicated; F19.10 Other psychoactive substance abuse, uncomplicated; Z11.3 Encounter for screening for infections with a predominantly sexual mode of transmission | CPT/HCPCS: 80307; 80324; 80359; 81025; 84439; 84443; 84702; 86803 ==

== ENCOUNTER → 2024-12-24 14:15 | Outpatient (BNVA) | payer BC, MEDICAID, SELFPAY | PROVIDERS: Visit Provider Nurse Practitioner Women's Health | DX: Z36.87 Encounter for antenatal screening for uncertain dates (principal) | CPT/HCPCS: 76801 ==

== ENCOUNTER → 2024-12-25 12:46 | Outpatient (BNVA) | payer BC, MEDICAID, SELFPAY | PROVIDERS: Visit Provider Nurse Practitioner Women's Health | DX: Z34.90 Encounter for supervision of normal pregnancy, unspecified, unspecified trimester (principal) | CPT/HCPCS: 80307; 84315; 85025; 86592; 86762; 86803; 86850; 86900; 87086; 87340; 87806 ==

== ENCOUNTER → 2025-01-08 10:47 | Outpatient (BNVA) | payer BC, MEDICAID, SELFPAY | PROVIDERS: Visit Provider Obstetrics & Gynecology | DX: O09.529 Supervision of elderly multigravida, unspecified trimester (principal); O09.899 Supervision of other high risk pregnancies, unspecified trimester | CPT/HCPCS: 84315; 87624 ==

== ENCOUNTER → 2025-01-23 08:02 | Outpatient (BNVA) | payer BC, MEDICAID, SELFPAY | PROVIDERS: Visit Provider Nurse Practitioner Women's Health | DX: O09.899 Supervision of other high risk pregnancies, unspecified trimester (principal) | CPT/HCPCS: 80307; 84315 ==

== ENCOUNTER → 2025-01-29 15:24 | Outpatient (BNVA) | payer BC, MEDICAID, SELFPAY | PROVIDERS: Visit Provider Obstetrics & Gynecology | DX: O26.899 Other specified pregnancy related conditions, unspecified trimester (principal); R30.0 Dysuria | CPT/HCPCS: 81000 ==

== ENCOUNTER → 2025-02-25 14:01 | Outpatient (BNVA) | payer BC, MEDICAID, SELFPAY | PROVIDERS: Visit Provider Obstetrics & Gynecology | DX: Z36.9 Encounter for antenatal screening, unspecified (principal) | CPT/HCPCS: 76805 ==

== ENCOUNTER 2025-03-01 14:51 | Outpatient (CLI) | payer BC, MEDICAID, SELFPAY ==
[2025-03-01 14:50] VITALS: BMI 22.8
[2025-03-01 14:58] VITALS: BP 138/81; PULSE 72
[2025-03-01 15:13] LABS: Glucose Urine UA Negative (Normal); Nitrate Urine Negative (Negative); Specific Gravity, Urine 1.026 (1.005-1.030)
[2025-03-01 15:29] VITALS: BP 119/78; PULSE 71
== END 2025-03-01 15:40 | disposition home or self-care (01) ==
LOC: OPOB 14:52 → OBGYN 14:53
PROVIDERS: Absent Provider Obstetrics & Gynecology; Visit Provider Obstetrics & Gynecology
DX: O26.899 Other specified pregnancy related conditions, unspecified trimester (principal); Z3A.00 Weeks of gestation of pregnancy not specified; R11.2 Nausea with vomiting, unspecified
CPT/HCPCS: 81001; 99211; Q0162

== ENCOUNTER → 2025-03-13 15:00 | Outpatient (BNVA) | payer BC, MEDICAID, SELFPAY | PROVIDERS: Visit Provider Obstetrics & Gynecology | DX: O09.522 Supervision of elderly multigravida, second trimester (principal) | CPT/HCPCS: 84315 ==

== ENCOUNTER → 2025-03-25 13:19 | Outpatient (BNVA) | payer BC, MEDICAID, SELFPAY | PROVIDERS: Visit Provider Nurse Practitioner Women's Health | DX: Z34.80 Encounter for supervision of other normal pregnancy, unspecified trimester (principal); Z34.90 Encounter for supervision of normal pregnancy, unspecified, unspecified trimester; N89.8 Other specified noninflammatory disorders of vagina | CPT/HCPCS: 80307; 84315; 86592; 87255 ==

== ENCOUNTER 2025-04-11 13:02 | Outpatient (CLI) | payer BC, MEDICAID, SELFPAY ==
--- NOTE | 2025-04-11 12:15 | USR_ITS ---
PROCEDURE INFORMATION: Exam: US After First Trimester, Transabdominal Exam date and time: 04/11/2025 1:24 PM Age: 39 years old Clinical indication: Screening exam; Routine US, uterus; Additional info: Z34.90 - encounter for supervision of normal , u. . . LABS AND CLINICAL REPORTS: Last menstrual period start date: Unknown Gestational age (Established): 27 w 1 d Estimated due date (Established): 07/10/2025 TECHNIQUE: Imaging protocol: Real-time transabdominal obstetrical ultrasound of the maternal pelvis and a second or third trimester with image documentation. COMPARISON: US OB >= 14 weeks fetus [id number] 02/25/2025 2:11 PM FINDINGS: Gestation: Single live intrauterine gestation. heart rate: 141 bpm. 141 bpm. presentation and position: Breech. Breech. Placenta: Unremarkable. No subchorionic bleed. Placenta is from posterior. Amniotic fluid (Qualitative): Amniotic fluid is normal for gestational age. ANATOMY: nose and lips are normal. BIOMETRY: Not provided at this time. MATERNAL: Uterus: Unremarkable. Cervix: Cervical length measures 5.1 cm. Cervix is closed. Right ovary/adnexa: Obscured by lack of adequate acoustic window. Left ovary/adnexa: Obscured by lack of adequate acoustic window. Intraperitoneal space: No intraperitoneal free fluid. Other findings: Remaining anatomy not evaluated at this time. Not provided at this time. US/US OB >= 14 weeks fetus [id number] IMPRESSION: Single live intrauterine gestation as above.
== END 2025-04-11 13:03 | disposition home or self-care (01) ==
LOC: RAD 13:04
PROVIDERS: Visit Provider Obstetrics & Gynecology
DX: Z34.83 Encounter for supervision of other normal pregnancy, third trimester (principal)
CPT/HCPCS: 76805

== ENCOUNTER → 2025-04-24 15:34 | Outpatient (BNVA) | payer BC, MEDICAID, SELFPAY | PROVIDERS: Visit Provider Obstetrics & Gynecology | DX: O09.899 Supervision of other high risk pregnancies, unspecified trimester (principal) | CPT/HCPCS: 82950; 84315; 85025 ==

== ENCOUNTER → 2025-05-05 12:51 | Outpatient (BNVA) | payer BC, MEDICAID, SELFPAY | PROVIDERS: Visit Provider Obstetrics & Gynecology | DX: O09.523 Supervision of elderly multigravida, third trimester (principal); Z3A.30 30 weeks gestation of pregnancy | CPT/HCPCS: 84315 ==

== ENCOUNTER 2025-05-18 17:45 | Outpatient (CLI) | payer BC, MEDICAID, SELFPAY ==
[2025-05-18] VITALS (8 sets, daily range): BP systolic 123–137; BP diastolic 69–83; PULSE 72–82; RESP 18; TEMP 36.7; O2SAT 98; BMI 26.4
== END 2025-05-18 19:29 | disposition home or self-care (01) ==
LOC: OPOB 17:47 → OBGYN 17:47
PROVIDERS: Visit Provider Obstetrics & Gynecology
DX: O26.899 Other specified pregnancy related conditions, unspecified trimester (principal); Z3A.00 Weeks of gestation of pregnancy not specified; R10.9 Unspecified abdominal pain
CPT/HCPCS: 59025; 99211

== ENCOUNTER → 2025-05-19 13:26 | Outpatient (BNVA) | payer BC, MEDICAID, SELFPAY | PROVIDERS: Visit Provider Obstetrics & Gynecology | DX: O09.529 Supervision of elderly multigravida, unspecified trimester (principal); O09.291 Supervision of pregnancy with other poor reproductive or obstetric history, first trimester | CPT/HCPCS: 84315 ==

== ENCOUNTER → 2025-05-22 07:50 | Outpatient (BNVA) | payer BC, MEDICAID, SELFPAY | PROVIDERS: Visit Provider Obstetrics & Gynecology | DX: O09.523 Supervision of elderly multigravida, third trimester (principal) | CPT/HCPCS: 84315 ==

== ENCOUNTER 2025-05-27 06:25 | Outpatient (CLI) | payer BC, MEDICAID, SELFPAY ==
[2025-05-27] VITALS (48 sets, daily range): BP systolic 80–138; BP diastolic 52–85; PULSE 66–103; O2SAT 93–99; BMI 26.3
--- NOTE | 2025-05-27 06:49 | USR_ITS ---
PROCEDURE INFORMATION: Exam: US , Limited Exam date and time: 05/27/2025 7:03 AM Age: 39 years old Clinical indication: Lmp or gestational age (in weeks): 34 w; Antepartum complications; Bleeding; ; Additional info: Vaginal bleeding 33.5wks gestation, 3 previous sections LABS AND CLINICAL REPORTS: Gestational age (Established): 33 w 5 d Estimated due date (Established): 07/10/2025 TECHNIQUE: Imaging protocol: Real-time ultrasound of the maternal uterus with image documentation. Exam focused on the clinical indication. COMPARISON: US OB >= 14 weeks fetus [id number] 04/11/2025 1:24 PM FINDINGS: Gestation: Single living intrauterine . heart rate: 188 bpm, regular rhythm. presentation and position: Breech position. Placenta: Posterior grade 1 placenta, no previa. No evidence of abruption. Amniotic fluid index: [place] is 13.99 cm. stomach: Fluid is present in the stomach. urinary bladder: Fluid is present in the urinary bladder. Other anatomy: The cervical outlet is obscured by head side lobe artifact. BIOMETRY: Estimated weight: 2207.25 g. EFW by AC, BPD, FL, HC, [place] 1985 Estimated weight percentile: 35.6% ([place]; previously 35th percentile by gestational age). Biparietal diameter (BPD): 8.55 cm. EGA (BPD) is 34 w 3 d. 68.6 % percentile Head circumference (HC): 30.36 cm. EGA (HC) is 33 w 5 d. 16.1 % percentile Abdominal circumference (AC): 29.52 cm. EGA (AC) is 33 w 4 d. 46.6 % percentile Femur length (FL): 6.4 cm. EGA (FL) is 33 w 0 d. 23 % percentile HC/AC: 1.03. (Normal range: 0.95 - 1.11) FL/HC: 21.08. (Normal range: 19.54 - 21.71) FL/BPD: 74.85. (Normal range: 71 - 87) FL/AC: 21.68. (Normal range: 20 - 24) US/US OB limited [id number] IMPRESSION: Single living intrauterine . Appropriate interval growth.
[2025-05-27 07:04] LABS: Platelet Count 308 10^3/cmm (157-399)
[2025-05-27 07:16] LABS: PCP Screen Urine Negative (Negative)
[2025-05-27 07:18] LABS: INR 0.94 (0.8-1.2); Prothrombin Time 13.30 SECONDS (12.1-14.9)
[2025-05-27 07:19] LABS: Partial Thromboplastin Time 24.0 SECONDS (23.9-36.7)
[2025-05-27 07:30] LABS: Fibrinogen 439 mg/dL (174-498)
[2025-05-27 07:32] LABS: Hematocrit 32.8 % (36-47); Hemoglobin 10.90 g/dL (11.27-16.99); Mean Corpuscular HGB Conc 33.2 g/dL (30-55); Mean Corpuscular Hemoglobin 29.7 pg (27-33); Mean Corpuscular Volume 89.4 fl (85-98); Nucleated Red Blood Cells % 0 %; Platelet Count 325 10^3/cmm (157-399); Red Blood Count 3.67 10^6/uL (3.85-5.65); White Blood Count 9.09 10^3/uL (3.29-11.43)
--- NOTE | 2025-05-27 07:54 | PM.OBGYHP ---
Providers/Chief Complaint Admitting Physician: Lou Paniagua Primary POURER METAL: Dr Causey Chief Complaint: bleeding/Possible PPROM HPI POURER METAL History of Present Illness Josselin Sierra is a 39 year old female @33+5 wks arrived by private vehicle for vaginal bleeding this am. She was taking her subutex, vomited, preserved her subutex then felt bad and noticed BRB after urinating. This is common with daily emesis. She takes subutex 8mg TID, zofran 4 mg BID at 6 and 1 pm. She is heavy coffee and soda user. She is in treatment court. No current partner, new FOB not involved. Did use vibrator last night. Present Details : 5 Para: 4 Review of Systems Narrative: OB: movement: [+] Const: Denies: fever(s) or chills Card: Denies: chest pain, palpitations or syncope Resp: Denies: dyspnea GI: Denies: abdominal pain, nausea has vomiting : Denies: flank pain, dysuria or urinary frequency Musc: Denies: back pain or extremity swelling Skin/Breast: Denies: rash, pruritus or breast pain Neuro: Denies: headache(s) or dizziness Psych: Denies: anxiety, depression or mood swings Endo: Denies: polyuria, tired all the time, cold intolerance or heat intolerance Yusef/Lymph: Denies: easy bruising or easy bleeding All/Imm: Denies: urticaria Medications/Allergies Home Medications ?Medication ?Instructions ?Recorded ?Confirmed ?Last Taken ?Type buprenorphine HCl 8 mg sublingual 8 mg sublingual TID 03/13/25 05/27/25 05/18/25 16:00 History tablet mv-mn no.97-folic 180 mcg-dha 25 1 tab PO DAILY 03/13/25 05/27/25 05/18/25 History mg-herb no.293 25 mg chewable tablet (Alive Daily Support ) sertraline 50 mg tablet (Zoloft) 50 mg PO BID 03/13/25 05/27/25 05/17/25 History aripiprazole 5 mg tablet (Abilify) 5 mg PO DAILY 04/24/25 05/27/25 05/17/25 History ondansetron HCl 4 mg tablet See Rx Instructions .Route 1005/27/25 05/27/25 Rx .COMPLEX #30 tabs Allergies Allergy/AdvReac Type Severity Reaction Status Date / Time beeswax Allergy unknown Verified 05/27/25 06:55 PFSH POURER METAL PFSH: Medical History (Updated 05/27/25 @ 08:08 by Lou Paniagua MD) Opiate poisoning No pertinent past medical history neghx: htn, dm, thyroid, dvt/pe PCP: none Surgical History H/O section 04/07/2022:Repeat LTCS- Justin 04/20/18 repeat low transverse by Dr Anderson 2003- Performed by Dr. Jimenez at [facility] in [place], [place]. History of bunionectomy H/O dilation and curettage 2002- Retained placenta per patient. Performed at [facility] in [place], [place]. Family History Father Hypertension Hyperlipidemia Grandfather Diabetes maternal Heart disease maternal Grandmother Stroke paternal great Family/Other FH: mental illness cousin Breast cancer, Onset Age: 35 maternal great aunt Denies family history of Colon cancer Ovarian cancer Clotting disorder Anesthesia complication Bleeding disorder Uterine cancer Thyroid disease Social History Smoking and tobacco/nicotine status: former use of tobacco/nicotine (quit, 12/11/2024) Substance/Drug Use: former Date of last use: 2009, opiods and marijuana Other Female Reproductive History: Hx Age of Menarche: 11 History History History 5 Term 4 0 Miscarriages/Ectopic 0 Living Children 4 Care TENA Calculator Estimated Delivery Date Method Current WG Current Estimate 07/10/25 Ultrasound #1 33w 5d Specific Issues/Plans Previous C/S x 3 AMA POLYSUBSTANCE ABUSE; on subutex NICOTINE USE Vitals/I&O/Wt Last Vital Signs Pulse 90 05/27/25 07:50 BP 119/74 05/27/25 07:47 Pulse Ox 97 05/27/25 07:50 Weight last 48 hrs Weight 168 lb Weight 168 lb Physical Exam Const: COMMON NORMALS: no acute distress and patient oriented x3 GENERAL APPEARANCE: cooperative and anxious HENMT: COMMON NORMALS: normocephalic Neck/C-Spine: COMMON NORMALS: full ROM Chest: COMMONS NORMALS: normal inspection of the chest Resp: COMMON NORMALS: normal respiratory effort, No retractions and clear to auscultation bilaterally EFFORT & INSPECTION: Yes able to speak in complete sentences Cardio: COMMON NORMALS: regular rhythm GI: COMMON NORMALS: Soft to palpation and non-tender (gravid) AUSCULTATION: Yes normoactive bowel sounds PALPATION: Yes Soft to palpation : COMMON NORMALS: Yes normal external appearance and Yes normal appearance of the cervix (liquid blood in vault) EXTERNAL FEMALE EXAM: Yes normal appearance of the urethra SPECULUM EXAM - VAGINA: No laceration, No mass, No tenderness and Yes other (blood is coming from cervical os, scant) SPECULUM EXAM - CERVIX: Yes Cervical os closed Extremity: COMMON NORMALS: normal to inspection OTHER: No edema, no calf tenderness Data 05/27/25 06:41 Results Labs OB ([facility]): Obstetrics US Today Blood Type A Positive Today Antibody Screen Negative Today Hct, (36-47) 32.8 % L Today Hgb, (11.27-16.99) 10.90 g/dL L Today Rho(D) Type Rh positive Today Plt Count, (157-399) 325 10^3/cmm Today Hep Bs Antigen, (Nonreactive) Non-reactive 12/25/24 Hepatitis C Antibody, (Nonreactive) Non-reactive 12/25/24 Rubella IgG Antibody, (0.0-10.0) 50.5 IU/mL H 12/25/24 RPR, (Nonreactive) Nonreactive 12/25/24 HIV 1&2 Ab & HIV 1 Ag, (Non-Reactiv) Non-reactive 12/25/24 TSH, (0.27-4.20) 0.94 uIU/mL 11/13/24 Free T4, (0.82-1.77) 1.37 ng/dL 11/13/24 C.trachomatis RNA (TMA), (NOT DETECTED) Not detected 02/29/24 N.gonorrhoeae RNA (TMA), (NOT DETECTED) Not detected 02/29/24 T. vaginalis Amp RNA, (NOT DETECTED) Not detected 02/29/24 Chlamydia/GC Comment See note 02/29/24 Glucose 1 Hr 50 gm, (85-140) 134 mg/dL 04/24/25 Ser , Semi-Qnt 3640.00 mIU/mL 11/13/24 HCG, Qual, (Negative) Positive H 11/13/24 Urine Opiates Screen, (Negative) Negative ng/mL Today Ur Barbiturates Screen, (Negative) Negative ng/mL Today Ur Phencyclidine Scrn, (Negative) Negative ng/mL Today Ur Amphetamines Screen, (Negative) Negative ng/mL Today U Benzodiazepines Scrn, (Negative) Negative ng/mL Today Urine Cocaine Screen, (Negative) Negative ng/mL Today U Marijuana (THC) Screen, (Negative) Negative ng/mL Today Micro Urine Specimen 12/25/24 Pap Smear Interpret See note 01/08/25 A&P Assessment and plan 1. Vaginal bleeding during : Labs ordered, US done- breech, posterior plac, sharron wnl. Consider abruption. Observation. Cervix appears closed, did not digitally check for now. 2. Elderly multigravida, currently : 3. Nausea/vomiting in : Discussed her decreasing soda and coffee. 4. Previous delivery affecting , antepartum: PDMP PDMP Reviewed: Not Reviewed Attestations Medical Necessity Statement*: Acute vaginal bleeding in third trimester with risk factors requiring hospitalization. Coding Level of Care Code Acute Code for Chg Fwd Diagnoses Vaginal bleeding during O46.90 Elderly multigravida, currently O09.529 Nausea/vomiting in O21.9 Previous delivery affecting , antepartum O34.219
[2025-05-27] MEDS: BUPRENORPHINE 8 MG SUBLINGUAL ×2 (14:42→20:31)
[2025-05-27] MEDS: PRENATAL VIT NO.130/IRON/FOLIC 1 EACH TABLET PO (20:29)
[2025-05-28 01:01] VITALS: BP 145/68; PULSE 83
[2025-05-28] MEDS: BUPRENORPHINE 8 MG SUBLINGUAL (05:01)
[2025-05-28 05:03] VITALS: BP 142/76; PULSE 88
[2025-05-28 05:42] VITALS: TEMP 36.3
[2025-05-28 08:14] VITALS: BP 130/83; PULSE 90
--- NOTE | 2025-05-28 08:14 | PM.OBGYDC ---
Discharge Providers COMMUNITY HEALTH PROMOTER Date of Discharge: 05/28/25 Attending Provider at Discharge: Lou Paniagua MD Diagnoses at Discharge Discharge Diagnosis 1. Vaginal bleeding during : 2. Elderly multigravida, currently : 3. Nausea/vomiting in : 4. Previous delivery affecting , antepartum: Reason for Visit Reason for Visit: bleeding/Possible PPROM Hospital Course Hospital Course Admitted for observation due to vaginal bleeding of acute onset. NST reactive, initially showed some contractioms that resolved. Bleeding stopped after arriving, good FM, normal US. Discharged with pelvic rest. FU as scheduled. Physical Exam Const: COMMON NORMALS: no acute distress, patient oriented x3, no limitations, alert and well nourished EXAM LIMITATIONS: no physical limitations GENERAL APPEARANCE: cooperative and comfortable NUTRITIONAL APPEARANCE: overweight ORIENTATION/CONSCIOUSNESS: Yes awake HENMT: COMMON NORMALS: normocephalic, atraumatic, hearing grossly normal bilaterally and external ears normal HEAD & SCALP: normocephalic and atraumatic FACE & SINUS: normal facial exam EXTERNAL EAR: Yes external ears normal Resp: COMMON NORMALS: normal respiratory effort, No retractions and No use of accessory muscles EFFORT & INSPECTION: Yes able to speak in complete sentences Cardio: COMMON NORMALS: regular rate and regular rhythm RATE: regular rate RHYTHM: regular rhythm GI: COMMON NORMALS: Normal to inspection, nondistended, normoactive bowel sounds present, Soft to palpation and non-tender INSPECTION: Yes normal to inspection PALPATION: Yes Soft to palpation Extremity: COMMON NORMALS: normal to inspection, full ROM, no clubbing, cyanosis or edema, no calf tenderness and no pedal edema Neuro: COMMON NORMALS: patient oriented x3 SENSORIUM/ORIENTATION: Yes alert SPEECH: speech normal GAIT: Yes Normal gait present Skin: COMMON NORMALS: no rashes or lesions noted GENERAL SKIN EXAM: no rashes or lesions noted History History History 5 Term 4 0 Miscarriages/Ectopic 0 Living Children 4 Discharge Data Studies Completed and Pending Completed Studies During Hospitalization Category Date Time Status US OB limited [id number] Stat Ultrasound 05/27/25 06:49 Completed Pending at discharge Category Date Time Status RED BLOOD CELLS [Leukocyte Reduced RBC] Stat Lab 05/27/25 06:41 Results Type and Screen Stat Lab 05/27/25 06:41 Results Radiology Impressions Obstetrics Ultrasound 05/27/25 06:49 IMPRESSION: Single living intrauterine . Appropriate interval growth. Laboratory Results WBC 9.09 10^3/uL (3.29-11.43) 05/27/25 06:41 RBC 3.67 10^6/uL (3.85-5.65) L 05/27/25 06:41 Hgb 10.90 g/dL (11.27-16.99) L 05/27/25 06:41 Hct 32.8 % (36-47) L 05/27/25 06:41 MCV 89.4 fl (85-98) 05/27/25 06:41 MCH 29.7 pg (27-33) 05/27/25 06:41 MCHC 33.2 g/dL (30-55) 05/27/25 06:41 RDW 12.2 % (12.1-15.1) 05/27/25 06:41 Plt Count 308 10^3/cmm (157-399) 05/27/25 06:41 Plt Count 325 10^3/cmm (157-399) 05/27/25 06:41 MPV 9.0 fL (7.4-10.4) 05/27/25 06:41 Neut % (Auto) 65.3 % 05/27/25 06:41 Lymph % (Auto) 27.0 % 05/27/25 06:41 Payne % (Auto) 6.2 % 05/27/25 06:41 Eos % (Auto) 0.9 % 05/27/25 06:41 Baso % (Auto) 0.2 % 05/27/25 06:41 Neut # (Auto) 5.94 10^3/uL (1.8-7.7) 05/27/25 06:41 Lymph # (Auto) 2.5 10^3/uL (0.8-4.8) 05/27/25 06:41 Payne # (Auto) 0.6 10^3/uL (0.2-0.9) 05/27/25 06:41 Eos # (Auto) 0.1 10^3/uL (0.0-0.8) 05/27/25 06:41 Baso # (Auto) 0.0 10^3/uL (0.0-0.1) 05/27/25 06:41 Nucleated RBC % (auto) 0 % 05/27/25 06:41 Nucleated RBCs # 0.0 /100WBC 05/27/25 06:41 PT 13.30 SECONDS (12.1-14.9) 05/27/25 06:41 INR 0.94 (0.8-1.2) 05/27/25 06:41 APTT 24.0 SECONDS (23.9-36.7) 05/27/25 06:41 Fibrinogen 439 mg/dL (174-498) 05/27/25 06:41 D-Dimer 1.39 ug/mLFEU (0-0.59) H 05/27/25 06:41 Urine Opiates Screen Negative ng/mL (Negative) 05/27/25 06:41 Ur Barbiturates Screen Negative ng/mL (Negative) 05/27/25 06:41 Ur Phencyclidine Scrn Negative ng/mL (Negative) 05/27/25 06:41 Ur Amphetamines Screen Negative ng/mL (Negative) 05/27/25 06:41 U Benzodiazepines Scrn Negative ng/mL (Negative) 05/27/25 06:41 Urine Cocaine Screen Negative ng/mL (Negative) 05/27/25 06:41 U Marijuana (THC) Screen Negative ng/mL (Negative) 05/27/25 06:41 Blood Type A Positive 05/27/25 06:41 Rho(D) Type Rh positive 05/27/25 06:41 Antibody Screen Negative 05/27/25 06:41 Crossmatch See Detail 05/27/25 06:41 Vitals Last Vital Signs Temp 97.3 F L 05/28/25 05:42 Pulse 88 05/28/25 05:03 BP 142/76 05/28/25 05:03 Pulse Ox 93 05/27/25 08:31 O2 Del Method Room Air 05/28/25 05:41 Results Labs OB ([facility]): Obstetrics US 05/27/25 Blood Type A Positive 05/27/25 Antibody Screen Negative 05/27/25 Hct, (36-47) 32.8 % L 05/27/25 Hgb, (11.27-16.99) 10.90 g/dL L 05/27/25 Rho(D) Type Rh positive 05/27/25 Plt Count, (157-399) 325 10^3/cmm 05/27/25 Hep Bs Antigen, (Nonreactive) Non-reactive 12/25/24 Hepatitis C Antibody, (Nonreactive) Non-reactive 12/25/24 Rubella IgG Antibody, (0.0-10.0) 50.5 IU/mL H 12/25/24 RPR, (Nonreactive) Nonreactive 12/25/24 HIV 1&2 Ab & HIV 1 Ag, (Non-Reactiv) Non-reactive 12/25/24 TSH, (0.27-4.20) 0.94 uIU/mL 11/13/24 Free T4, (0.82-1.77) 1.37 ng/dL 11/13/24 C.trachomatis RNA (TMA), (NOT DETECTED) Not detected 02/29/24 N.gonorrhoeae RNA (TMA), (NOT DETECTED) Not detected 02/29/24 T. vaginalis Amp RNA, (NOT DETECTED) Not detected 02/29/24 Chlamydia/GC Comment See note 02/29/24 Glucose 1 Hr 50 gm, (85-140) 134 mg/dL 04/24/25 Ser , Semi-Qnt 3640.00 mIU/mL 11/13/24 HCG, Qual, (Negative) Positive H 11/13/24 Urine Opiates Screen, (Negative) Negative ng/mL 05/27/25 Ur Barbiturates Screen, (Negative) Negative ng/mL 05/27/25 Ur Phencyclidine Scrn, (Negative) Negative ng/mL 05/27/25 Ur Amphetamines Screen, (Negative) Negative ng/mL 05/27/25 U Benzodiazepines Scrn, (Negative) Negative ng/mL 05/27/25 Urine Cocaine Screen, (Negative) Negative ng/mL 05/27/25 U Marijuana (THC) Screen, (Negative) Negative ng/mL 05/27/25 Micro Urine Specimen 12/25/24 Pap Smear Interpret See note 01/08/25 Discharge Plan Discharge Patient Disposition: Home Prescriptions: No Action sertraline [Zoloft] 50 mg tablet 50 mg PO BID buprenorphine HCl 8 mg tablet, sublingual 8 mg sublingual TID Alive Daily Support 180 mcg-25 mg- 25 mg tablet,chewable 1 tab PO DAILY aripiprazole [Abilify] 5 mg tablet 5 mg PO DAILY ondansetron HCl 4 mg tablet See Rx Instructions .ROUTE .COMPLEX Qty: 30 3RF Dose Instruction: TAKE 1 TABLET BY MOUTH EVERY 6 HOURS NEEDED FOR NAUSEA AND VOMITING Rx Instructions: TAKE 1 TABLET BY MOUTH EVERY 6 HOURS NEEDED FOR NAUSEA AND VOMITING Diet: Usual diet Activity Restrictions/Additional Instructions: Pelvic rest Print Language: Mauritian Discharge Attestations [facility] Time Spent in Discharge Care*: less than 30 min Coding Level of Care Code Acute Code for Chg Fwd Diagnoses Vaginal bleeding during O46.90 Elderly multigravida, currently O09.529 Nausea/vomiting in O21.9 Previous delivery affecting , antepartum O34.219
== END 2025-05-28 09:15 | disposition home or self-care (01) ==
LOC: OPOB 06:31 → OBGYN 06:32
PROVIDERS: Obstetrics & Gynecology; Visit Provider Obstetrics & Gynecology
DX: O46.93 Antepartum hemorrhage, unspecified, third trimester (principal); Z3A.33 33 weeks gestation of pregnancy
CPT/HCPCS: 36415; 59025; 76815; 80306; 85025; 85049; 85378; 85384; 85610; 85730; 86850; 86900; 86920; 99211; J9999; Q0162

== ENCOUNTER 2025-05-30 10:55 | Outpatient (CLI) | payer BC, MEDICAID, SELFPAY ==
[2025-05-30 11:12] VITALS: BP 133/81; PULSE 84
[2025-05-30 11:27] VITALS: BP 120/71; PULSE 86
== END 2025-05-30 11:41 | disposition home or self-care (01) ==
LOC: OPOB 10:58 → OBGYN 10:58
PROVIDERS: Visit Provider Obstetrics & Gynecology
DX: O26.899 Other specified pregnancy related conditions, unspecified trimester (principal); Z3A.00 Weeks of gestation of pregnancy not specified; R19.09 Other intra-abdominal and pelvic swelling, mass and lump
CPT/HCPCS: 59025; 99211

== ENCOUNTER → 2025-06-02 13:15 | Outpatient (BNVA) | payer BC, MEDICAID, SELFPAY | PROVIDERS: Visit Provider Nurse Practitioner Women's Health | DX: O09.529 Supervision of elderly multigravida, unspecified trimester (principal); O09.899 Supervision of other high risk pregnancies, unspecified trimester; F19.10 Other psychoactive substance abuse, uncomplicated | CPT/HCPCS: 80053; 84315 ==

== ENCOUNTER 2025-06-11 11:42 | Outpatient (CLI) | payer BC, MEDICAID, SELFPAY ==
[2025-06-11 11:40] VITALS: BMI 27.7
[2025-06-11 11:55] VITALS: BP 138/86; PULSE 92
[2025-06-11 12:14] VITALS: BP 134/79; PULSE 90
[2025-06-11 12:25] LABS: Nitrazine Paper, PH Negative
== END 2025-06-11 12:33 | disposition home or self-care (01) ==
LOC: OPOB 11:43 → OBGYN 11:44
PROVIDERS: Visit Provider Obstetrics & Gynecology
DX: O26.899 Other specified pregnancy related conditions, unspecified trimester (principal); Z3A.00 Weeks of gestation of pregnancy not specified; N89.8 Other specified noninflammatory disorders of vagina
CPT/HCPCS: 59025; 83986; 99211

== ENCOUNTER 2025-06-16 15:00 | Outpatient (CLI) | payer BC, MEDICAID, SELFPAY ==
[2025-06-16 15:05] VITALS: BMI 28.1
[2025-06-16 15:10] VITALS: BP 124/77; PULSE 90
[2025-06-16 15:27] VITALS: BP 142/83; PULSE 81
[2025-06-16 15:41] VITALS: BP 141/86; PULSE 82
[2025-06-16 15:57] VITALS: BP 148/82; PULSE 85
[2025-06-16 16:10] VITALS: BP 148/82; PULSE 85; RESP 17
== END 2025-06-16 16:10 | disposition home or self-care (01) ==
LOC: OPOB 15:04 → OBGYN 15:04
PROVIDERS: Visit Provider Obstetrics & Gynecology
DX: O13.9 Gestational [pregnancy-induced] hypertension without significant proteinuria, unspecified trimester (principal); Z3A.00 Weeks of gestation of pregnancy not specified; R60.9 Edema, unspecified
CPT/HCPCS: 59025; 84315; 87081; 99211

== ENCOUNTER 2025-06-19 14:58 | Outpatient (CLI) | payer BC, MEDICAID, SELFPAY ==
[2025-06-19] VITALS (7 sets, daily range): BP systolic 131–148; BP diastolic 77–85; PULSE 86–97; RESP 17; BMI 28.3
[2025-06-19 16:02] LABS: Hematocrit 31.0 % (36-47); Hemoglobin 9.90 g/dL (11.27-16.99); Mean Corpuscular HGB Conc 31.9 g/dL (30-55); Mean Corpuscular Hemoglobin 28.6 pg (27-33); Mean Corpuscular Volume 89.6 fl (85-98); Nucleated Red Blood Cells % 0 %; Platelet Count 250 10^3/cmm (157-399); Red Blood Count 3.46 10^6/uL (3.85-5.65); White Blood Count 8.79 10^3/uL (3.29-11.43)
[2025-06-19 16:21] LABS: Alanine Aminotransferase 8 U/L (0-33); Albumin Level 3.2 g/dL (3.5-5.2); Alkaline Phosphatase 121 U/L (35-105); Anion Gap 14.9 (5-19); Aspartate Amino Transferase 20 U/L (0-32); Blood Urea Nitrogen 9 mg/dL (6-20); Calcium 8.2 mg/dL (8.5-10.5); Carbon Dioxide 24 mmol/L (22-29); Chloride 99 mmol/L (98-107); Globulin 3.1 g/dL (1.3-4.6); Glucose 122 mg/dL (65-115); Osmolality Calculated 278 mOsm/kg (285-295); Potassium 3.9 mmol/L (3.5-5.1); Sodium 134 mmol/L (136-145); Total Protein 6.3 g/dL (6.6-8.7); Uric Acid 4.1 mg/dL (2.4-5.7)
[2025-06-19 16:33] LABS: UPRO/UCREAT Ratio 0.13 mg/mg CR
== END 2025-06-19 17:00 | disposition home or self-care (01) ==
LOC: OPOB 14:59 → OBGYN 15:00
PROVIDERS: Visit Provider Obstetrics & Gynecology
DX: O13.9 Gestational [pregnancy-induced] hypertension without significant proteinuria, unspecified trimester (principal); Z3A.00 Weeks of gestation of pregnancy not specified
CPT/HCPCS: 36415; 59025; 80053; 82570; 84156; 84550; 85025; 99211

== ENCOUNTER 2025-06-26 17:22 | Outpatient (CLI) | payer BC, MEDICAID, SELFPAY ==
[2025-06-26 17:18] VITALS: BMI 29.0
[2025-06-26 17:33] VITALS: BP 126/81; PULSE 84
[2025-06-26 17:48] VITALS: BP 132/80; PULSE 82
== END 2025-06-26 18:01 | disposition home or self-care (01) ==
LOC: OPOB 17:23 → OBGYN 17:24
PROVIDERS: PCP Obstetrics & Gynecology; Visit Provider Obstetrics & Gynecology
DX: O13.9 Gestational [pregnancy-induced] hypertension without significant proteinuria, unspecified trimester (principal); Z3A.00 Weeks of gestation of pregnancy not specified
CPT/HCPCS: 59025

== ENCOUNTER → 2025-06-30 08:57 | Outpatient (BNVA) | payer BC, MEDICAID, SELFPAY | PROVIDERS: Visit Provider Obstetrics & Gynecology | DX: O09.529 Supervision of elderly multigravida, unspecified trimester (principal); O09.293 Supervision of pregnancy with other poor reproductive or obstetric history, third trimester; Z3A.38 38 weeks gestation of pregnancy | CPT/HCPCS: 84315 ==

== ENCOUNTER 2025-07-03 10:01 | Inpatient (IN) | payer BC, MEDICAID, SELFPAY ==
--- NOTE | 2025-06-24 10:28 | P.ANESASSM_ITS ---
Pre-Anesthetic Assessment Height/Weight: Height 5 ft 7 in Preop Diagnosis: IUP Operation Date: 07/03/25 12:20 Proposed Procedures p Section Repeat With Tubal(Bilateral) - David Edwards MD Was Beta Sunil taken within 24 hours: N/A Was Clonidine taken within 24 hours: N/A Social No alcohol and No tobacco Exam alert, oriented x 3, clear to auscultation bilaterally and regular rate & rhythm Anesthetic Plan ASA status: 3 Anesthesia: Regional (specify below) Other: G5, P4 here for preop. Patient states that she had a Prior hemorrhage requiring multiple transfusions but no issues during this Patient takes vitamin and Subutex for prior opioid abuse Denies any cardiac issues Will obtain labs prior to procedure Plan for routine with spinal Medications/Allergies Home Medications ?Medication ?Instructions ?Recorded ?Confirmed ?Last Taken ?Type buprenorphine HCl 8 mg sublingual 8 mg sublingual TID 03/13/25 06/23/25 05/18/25 16:00 History tablet mv-mn no.97-folic 180 mcg-dha 25 1 tab PO DAILY 06/23/25 05/18/25 History mg-herb no.293 25 mg chewable tablet (Alive Daily Support ) sertraline 50 mg tablet (Zoloft) 50 mg PO BID 03/13/25 06/23/25 05/17/25 History aripiprazole 5 mg tablet (Abilify) 5 mg PO DAILY 04/2406/23/25 05/17/25 History ondansetron HCl 4 mg tablet See Rx Instructions .Route 05/05/25 06/23/25 05/27/25 Rx .COMPLEX #30 tabs Allergies Allergy/AdvReac Type Severity Reaction Status Date / Time beeswax Allergy unknown Verified 06/23/25 15:09 [facility] Anesthesia Medical History Opiate poisoning No pertinent past medical history neghx: htn, dm, thyroid, dvt/pe PCP: none Surgical History H/O section 04/07/2022:Repeat LTCS- Justin 04/20/18 repeat low transverse by Dr Anderson 2003- Performed by Dr. Jimenez at [facility] in [place], [place] History of bunionectomy H/O dilation and curettage 2003- Retained placenta per patient. Performed at [facility] in [place], [place] Family History Father Hypertension Hyperlipidemia Grandfather Diabetes maternal Heart disease maternal Grandmother Stroke paternal great Family/Other FH: mental illness cousin Breast cancer, Onset Age: 35 maternal great aunt Denies family history of Colon cancer Ovarian cancer Clotting disorder Anesthesia complication Bleeding disorder Uterine cancer Thyroid disease Social History Smoking and tobacco/nicotine status: former use of tobacco/nicotine (quit, 12/11/2024) Substance/Drug Use: former Date of last use: 2009, opiods and marijuana
[2025-07-03] VITALS (138 sets, daily range): BP systolic 73–148; BP diastolic 46–95; PULSE 65–106; RESP 16–18; TEMP 36.4–37.1; O2SAT 83–100; BMI 29.4
[2025-07-03 10:43] LABS: Hematocrit 33.2 % (36-47); Hemoglobin 10.50 g/dL (11.27-16.99); Mean Corpuscular HGB Conc 31.6 g/dL (30-55); Mean Corpuscular Hemoglobin 27.8 pg (27-33); Mean Corpuscular Volume 87.8 fl (85-98); Nucleated Red Blood Cells % 0 %; Platelet Count 299 10^3/cmm (157-399); Red Blood Count 3.78 10^6/uL (3.85-5.65); White Blood Count 8.83 10^3/uL (3.29-11.43)
--- NOTE | 2025-07-03 10:47 | P.ANESASSM_ITS ---
Pre-Anesthetic Assessment Height/Weight: Height 5 ft 7 in Pulse BP 85 132/89 07/03/25 10:31 07/03/25 10:31 Preop Diagnosis: IUP Operation Date: 07/03/25 12:20 Proposed Procedures p Section Repeat With Tubal(Bilateral) - David Edwards MD Was Beta Sunil taken within 24 hours: N/A Was Clonidine taken within 24 hours: N/A Social No alcohol and No tobacco Exam alert, oriented x 3, clear to auscultation bilaterally and regular rate & rhythm Airway Submandibular: within normal limits Cervical ROM: within normal limits Mallampati: Class I Dentition: full Comments: Comments: Few teeth missing Anesthetic Plan ASA status: 3 Anesthesia: Regional (specify below) Other: No prior issues with anesthesia NPO since yesterday evening History of polysubstance abuse, on chronic Subutex. Last taken this morning around 5 AM Preeclampsia Labs reviewed from today and acceptable for procedure EKG sinus rhythm Spinal anesthesia Medications/Allergies Home Medications ?Medication ?Instructions ?Recorded ?Confirmed ?Last Taken ?Type buprenorphine HCl 8 mg sublingual 8 mg sublingual TID 03/13/25 06/30/25 05/18/25 16:00 History tablet mv-mn no.97-folic 180 mcg-dha 25 1 tab PO DAILY 06/30/25 05/18/25 History mg-herb no.293 25 mg chewable tablet (Alive Daily Support ) sertraline 50 mg tablet (Zoloft) 50 mg PO BID 03/13/25 06/30/25 05/17/25 History aripiprazole 5 mg tablet (Abilify) 5 mg PO DAILY 04/2406/30/25 05/17/25 History ondansetron HCl 4 mg tablet See Rx Instructions .Route 06/25/25 06/26/25 Unknown Rx .COMPLEX #30 tabs Allergies Allergy/AdvReac Type Severity Reaction Status Date / Time beeswax Allergy unknown Verified 06/30/25 09:17 [facility] Anesthesia Medical History Opiate poisoning No pertinent past medical history neghx: htn, dm, thyroid, dvt/pe PCP: none Surgical History H/O section 04/07/2022:Repeat LTCS- Justin 04/20/18 repeat low transverse by Dr Anderson 2003- Performed by Dr. Jimenez at [facility] in [place], [place] History of bunionectomy H/O dilation and curettage 2002- Retained placenta per patient. Performed at [facility] in [place], [place] Family History Father Hypertension Hyperlipidemia Grandfather Diabetes maternal Heart disease maternal Grandmother Stroke paternal great Family/Other FH: mental illness cousin Breast cancer, Onset Age: 35 maternal great aunt Denies family history of Colon cancer Ovarian cancer Clotting disorder Anesthesia complication Bleeding disorder Uterine cancer Thyroid disease Social History Smoking and tobacco/nicotine status: former use of tobacco/nicotine (quit, 12/11/2024) Substance/Drug Use: former Date of last use: 2009, opiods and marijuana Data Anesthesia 07/03/25 10:24 Short CBC 07/03/25 Range/Units 10:24 WBC 8.83 (3.29-11.43) 10^3/uL Hgb 10.50 L (11.27-16.99) g/dL Hct 33.2 L (36-47) % MCV 87.8 (85-98) fl Plt Count 299 (157-399) 10^3/cmm Neut % (Auto) 73.1 % Neut # (Auto) 6.46 (1.8-7.7) 10^3/uL
--- OUTSIDE RECORDS SUMMARY | 2025-07-03 11:22 | XMS_ITS | Encounter Summary ---
Author Organization [employer] Address [address] [place] [address] Care Team Providers Care Manifold Operator Name Role Phone David Saunders MD Primary Care Provider [phone] Encounter Details Date Type Department Care Team (Late st Contact Info) Description 07/01/2025 External Device Data [facility] ABSTRACTION Provider, Abstract NO ADDRESS ON FILE Social History Tobacco Use Types Packs/Day Years Used Date Smoking Tobacco: Former Cigarettes Smokeless Tobacco: Never Alcohol Use Standard Drinks/Week Comments No 0 (1 standard drink = 0.6 oz pur e alcohol) social Food Insecurity Answer Date Recorded Do you find you are eating l ess than you should because you can t pay for food? No 05/09/2025 Transportation Needs Answer Date Record ed Have you gone without health care because you didn t have a way to get there? Or worry about transportation for future doctor visits, pear picker medication, etc.? No 2024 Housing Stability Answer Date Recorded Do you worry you won t have a steady place to sleep or struggle to pay rent or mortgage? No 05/09/2025 Utility Needs Answer Date Recorded Do you have difficulty payin g for utility costs (electric, water or gas bills)? No 05/09/2025 Medication Needs Answer Date Recorded Have you skipped taking medi cation due to cost or worry you can t afford new medications? No 05/09/2025 Feeling Safe Answer Date Recorded Are you in a relationship wi th someone who hurts you emotionally and/or physically? 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
--- OUTSIDE RECORDS SUMMARY | 2025-07-03 11:22 | XMS_ITS | Clinical Summary ---
Author Organization [facility] Address [address] [place] [address] Phone Care Team Providers Care Medical Management Specialist Name Role Phone David Saunders MD Primary Care Provider [phone] Allergies No known active allergies Medications venlafaxine (EFFEXOR XR) 150 mg Extended Release 24 hour capsule Take 150 mg by mouth daily. Active nabumetone (RELAFEN) 500 mg tablet Take 1 Tablet (500 mg) by mouth 2 times daily. 20 Tablet 06/26/2016 Active DULoxetine (CYMBALTA) 60 mg Capsule, Delayed Release(E.C.) Take 60 mg by mouth 2 times daily. 06/13/2019 Active dextroamphetamin e-amphetamine (ADDERALL) 20 mg tablet Take 20 mg by mouth daily. 06/13/2019 Active buprenorphine HCL (SUBUTEX) 8 mg Tablet, Sublingual Place 8 mg under tongue 3 times daily. 06/13/2019 Active sertraline (ZOLOFT) 50 mg tablet Take 50 mg by mouth daily. Active ARIPiprazole (ABILIFY) 5 mg tablet Take 5 mg by mouth daily. Active ondansetron (ZOFRAN) 4 mg Tablet Take 4 mg by mouth every 12 hours as needed for Nausea/Emes is. Active Active Problems Problem Noted Date Diagnosed Date substance-induced mood d/o, meth dependence, opi oid abuse 08/24/2010 Narcotic abuse 09/20/2009 Severe headache 09/20/2009 Facial swelling 09/20/2009 Facial trauma 09/20/2009 Hypokalemia 09/19/2009 Tobacco use disorder 09/19/2009 Anxiety 09/19/2009 Cellulitis, face 07/23/2009 Overview (01/21/2021): History of MRSA Narcotic dependence Estimated Date of Delivery Comme nts Yes 07/10/2025 Based on Other B asis Encounters Date Type Department Care Team Description 07/01/2025 External Device Data [facility] ABSTRACTION Provider, Abstract 06/17/2025 External Device Data [facility] ABSTRACTION Provider, Abstract 06/10/2025 External Device Data [facility] ABSTRACTION Provider, Abstract 05/21/2025 Orders Only [facility] Health Information Management [place] [address] [place] [id number] Provider, Abstract 05/20/2025 External Device Data [facility] ABSTRACTION Provider, Abstract 05/20/2025 External Device Data [facility] ABSTRACTION Provider, Abstract 05/20/2025 External Device Data [facility] ABSTRACTION Provider, Abstract 05/14/2025 External Device Data [facility] ABSTRACTION Provider, Abstract 05/13/2025 External Device Data [facility] ABSTRACTION Provider, Abstract 05/09/2025 10:44 PM CDT - 05/10/2025 12:58 AM CDT Hospital Encounter [facility] Labor and Delivery Triage [address] [place] [address] Amada Vasquez MD Discharge Disposition: Home or Self Care 05/09/2025 Travel 05/07/2025 External Device Data [facility] ABSTRACTION Provider, Abstract 04/15/2025 External Device Data [facility] ABSTRACTION Provider, Abstract 04/15/2025 External Device Data [facility] ABSTRACTION Provider, Abstract from Last 3 Months Social History Tobacco Use Types Packs/Day Years Used Date Smoking Tobacco: Former Cigarettes Smokeless Tobacco: Never Tobacco Cessation:Counseling Given: Not Answered Alcohol Use Standard Drinks/Week Comments No 0 [...] worry about transportation for future doctor visits, citrus picker medication, etc.? 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 Gender Identity Not on file Sexual Orientation Not on file Last Filed Vital Signs Vital Sign Reading Time Taken Comments Blood Pressure 127/80 05/09/2025 11:19 PM CDT Pulse 100 05/09/2025 11:19 PM CDT Temperature 36.7 C (98 F) 05/09/2025 11:19 PM CDT Respiratory Rate 16 05/09/2025 11:19 PM CDT Oxygen Saturation 96% 05/09/2025 11:19 PM CDT Inhaled Oxygen Concentration - - Weight 73.9 kg (163 lb) 05/09/2025 11:18 PM CDT Height 170.2 cm (5' 7 ) 05/09/2025 11:18 PM CDT Body Mass Index 25.53 05/09/2025 11:18 PM CDT Plan of Treatment Health Maintenance Due Date Last Done Comments DTAP/TDAP/TD VACCINES (1 - Tdap) 11/23/2002 HEPATITIS B VACCINES (1 of 3 - 19+ 3-dose series) 11/14 BREAST CANCER SCREENING 2023 INFLUENZA VACCINE (#1) 2025 PAP SMEAR 01/09/2028 01/08/2025 CERVICAL CANCER SCREENING 01/08/2030 HPV/Cotest (21-29) 01/08/2030 01/08/2025 HPV/Cotest (30-65) 01/08/2030 01/08/2025 HPV VACCINES (No Doses Required) Completed RSV VACCINE (60+ or ) (No Doses Required) Comp leted Procedures Procedure Name Priority Date/Time Associated Diagnosis Comments EXTRA TUBE (URINE CONTAINER) Routine 05/09/2025 11:03 PM CDT EXTRA TUBE Routine 05/09/2025 11:03 PM CDT URINALYSIS W/REFLEX MICROSCOPIC Stat 05/09/2025 11:03 PM CDT CERV/VAG CYTOPATH, THIN PREP CAPACITOR REPAIRER AND HPV Routine 01/08/2025 1:32 PM CDT from Last 3 Months or Most Recently Relevant to Health Maintenance Results * EXTRA TUBE (URINE CONTAINER) (05/09/2025 11:03 PM CDT) Urine URINE SPECIMEN OBTAINED BY CLEAN CATCH PROCEDURE / Unknown Collection / Unknown 05/09/2025 11:03 PM CDT 05/09/2025 11:06 PM CDT Amada Vasquez MD URINE ORDERABLES Final R esult [facility] CLIA # [id number] [address] [place] [id number] * (ABNORMAL) URINALYSIS WITH REFLEX MICROSCOPIC (05/09/2025 11:03 PM CDT) COLOR UA Yellow Pale to Dark Yellow 05/09/2025 11:24 PM CDT [facility] CLARITY UA Cloudy(A) Clear 05/09/2025 11:24 PM CDT [facility] SPECIFIC GRAVITY UA 1.036(H) 1.003 - 1.035 05/09/2025 11:24 PM CDT [facility] PH UA 6.0 5.0 - 8.0 05/09/2025 11:24 PM CDT [facility] LEUKOCYTE ESTERASE UA 2+(A) Negative 05/09/2025 11:24 PM CDT [facility] NITRITE UA Negative Negative 05/09/2025 11:24 PM CDT [facility] PROTEIN UA 1+(A) Negative 05/09/2025 11:24 PM T [facility] GLUCOSE UA Negative Negative 05/09/2025 11:24 PM T [facility] KETONES UA Trace(A) Negative 05/09/2025 11:24 PM T [facility] UROBILINOGEN UA 4.0(A) <2.0 mg/dL 11:24 PM CDT [facility] BILIRUBIN UA Negative Negative 05/09/2025 11:24 PM T [facility] BLOOD UA Negative Negative 05/09/2025 11:24 PM T [facility] WBC UA 11-25(A) 0 - 2 /hpf 05/09/2025 11:24 PM T [facility] RBC UA 0-2 0 - 2 /hpf 05/09/2025 11:24 PM T [facility] BACTERIA UA 4+(A) Negative /hpf 05/09/2025 11:24 PM CDT [facility] EPITHELIAL CELLS, URINE 6-10(A) 0 - 5 /hpf 05/09/2025 11:24 PM T [facility] Urine URINE SPECIMEN OBTAINED BY CLEAN CATCH PROCEDURE / Unknown Collection / Unknown 05/09/2025 11:03 PM CDT 05/09/2025 11:06 PM CDT Result [facility] Amada Vasquez MD URINE ORDERABLES Final R esult [facility] CLIA # [id number] [address] [place] [id number] * CERV/VAG CYTOPATH, THIN PREP CAPACITOR REPAIRER AND HPV (01/08/2025 1:32 PM CDT) Genital SWAB OF ENDOCERVIX / Unknown Abstract Provider PATHOLOGY/CYTOLOGY ORDERABLES Final Result from Last 3 Months or Most Recently Relevant to Health Maintenance Insurance [facility] MEDICAID Advance Directives For more information, please contact: [phone] * Full Code (Latest Code Status on File) Date Activated Date Inactivated Comments 05/09/2025 10:48 PM 05/10/2025 3:21 AM Care Teams Medical Management Specialist Relationship Specialty Start Date End Date David Saunders MD [address] [place] [id number] PCP - General Family Practice 06/13/19
--- OUTSIDE RECORDS SUMMARY | 2025-07-03 11:22 | XMS_ITS | Patient Health Record ---
Author Organization [facility] Address [address] [place] [address] Care Team Providers Care Housing Specialist Name Role Phone Garry Gutierrez Unavailable [phone] Reason For Referral No Information Plan Of Treatment No Information
[2025-07-03 13:09] LABS: PCP Screen Urine Negative (Negative)
[2025-07-03] MEDS: metoclopramide 5 mg/mL SDV 2 mL 10 MG IV (13:16)
[2025-07-03] MEDS: ceFAZolin 2,000 mg SDV 2000 MG IVP (13:30)
--- NOTE | 2025-07-03 15:22 | PM.HP ---
Providers/Chief Complaint Admitting Physician: David Edwards MD Primary Care Provider: Eulalio Causey MD Chief Complaint: scheduled 07/03 History of Present Illness Josselin Sierra is a 39 year old female Ms. Sierra is a 39 year old established patient with an LMP 10/13/24, TENA 07/10/2025 Today 39w0d, here for repeat 4th CS and sterilization. Medications/Allergies Home Medications ?Medication ?Instructions ?Recorded ?Confirmed ?Last Taken ?Type buprenorphine HCl 8 mg sublingual 8 mg sublingual TID 03/13/25 06/30/25 05/18/25 16:00 History tablet mv-mn no.97-folic 180 mcg-dha 25 1 tab PO DAILY 03/13/25 06/30/25 05/18/25 History mg-herb no.293 25 mg chewable tablet (Alive Daily Support ) sertraline 50 mg tablet (Zoloft) 50 mg PO BID 03/13/25 06/30/25 05/17/25 History aripiprazole 5 mg tablet (Abilify) 5 mg PO DAILY 04/24/25 06/30/25 05/17/25 History ondansetron HCl 4 mg tablet See Rx Instructions .Route 06/25/25 06/26/25 Unknown Rx .COMPLEX #30 tabs Allergies Allergy/AdvReac Type Severity Reaction Status Date / Time beeswax Allergy unknown Verified 06/30/25 09:17 PFSH Acute PFSH: Medical History (Updated 07/03/25 @ 15:29 by David Edwards MD) Opiate poisoning No pertinent past medical history neghx: htn, dm, thyroid, dvt/pe PCP: none Surgical History H/O section 04/07/2022:Repeat LTCS- Justin 04/20/18 repeat low transverse by Dr Anderson 2003- Performed by Dr. Jimenez at [facility] in [place], [place]. History of bunionectomy H/O dilation and curettage 2002- Retained placenta per patient. Performed at [facility] in [place], [place]. Family History Father Hypertension Hyperlipidemia Grandfather Diabetes maternal Heart disease maternal Grandmother Stroke paternal great Family/Other FH: mental illness cousin Breast cancer, Onset Age: 35 maternal great aunt Denies family history of Colon cancer Ovarian cancer Clotting disorder Anesthesia complication Bleeding disorder Uterine cancer Thyroid disease Social History Smoking and tobacco/nicotine status: former use of tobacco/nicotine (quit, 12/11/2024) Substance/Drug Use: former Date of last use: 2009, opiods and marijuana Female Reproductive History: : 5 Vitals/I&O/Wt Last Vital Signs Pulse 90 07/03/25 10:53 BP 138/85 07/03/25 10:53 O2 Del Method Room Air 07/03/25 10:37 Weight last 48 hrs Weight 188 lb Physical Exam Narrative: Const: COMMON NORMALS: no acute distress, p atient oriented x3 , healthy appearin g and alert 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, comforta ble and well kempt ORIENTATION/CONS CIOUSNESS: Yes lópez ke, Yes oriented t o person, Yes orie nted to place and Yes oriented to ti me Resp: COMMON NORMALS: no rmal respiratory e ffort, No retracti ons and No use of accessory muscles EFFORT & INSPECTI ON: Yes able to sp eak in complete se ntences, Yes symme tric chest movemen t and No respirato ry distress Cardio: COMMON NORMALS: re gular rate and reg ular rhythm RATE: regular rate RHY THM: regular rhyth m Neuro: COMMON NORMALS: pa tient oriented x3 SENSORIUM/ORIENTA TION: Yes alert, Y es oriented to per son, Yes oriented to place and Yes o riented to time S PEECH: speech norm al Psych: COMMON NORMALS: me ntal status grossl y normal, Normal t hought process pre sent, cooperative, normal affect and speech normal AP PEARANCE: Yes well kempt SPEECH: Ye s normal speech T HOUGHT PROCESS: No rmal thought proce ss present Urinary Catheter Management: Lozoya Latex Free: Cath Placed During This Visit: yes Urinary Catheter Date of Insertion: 07/03/25 Urinary Catheter Time of Insertion: 10:30 Data 07/03/25 10:24 A&P Assessment and plan 1. 39 weeks gestation of : 2. Previous delivery affecting , antepartum: 3. Supervision of other high-risk : 4. History of pre-eclampsia in prior , currently in first trimester: 5. Vaginal bleeding during : 6. Amphetamine abuse: 7. Polysubstance abuse: PDMP PDMP Reviewed: Not Reviewed Attestations Medical Necessity Statement*: Hospitalization needed for repeat CS and sterilization. Coding Level of Care Code Acute Code for Chg Fwd Diagnoses 39 weeks gestation of Z3A.39 Previous delivery affecting , antepartum O34.219 Supervision of other high-risk O09.899 History of pre-eclampsia in prior , currently in first trimester O09.291 Vaginal bleeding during O46.90 Amphetamine abuse F15.10 Polysubstance abuse F19.10
[2025-07-03] MEDS: methylergonovine 0.2 mg/mL INJ 1 mL IM ×2 (15:25→18:47)
--- NOTE | 2025-07-03 15:30 | PM.OP2 ---
Brief Operative Note Date of procedure: 07/03/25 Pre-op diagnosis: 39w high risk for repeat CS Post-op diagnosis: same Procedure Done: Repeat LTCS with bilateral salpingectomy Surgeon: David Edwards Estimated blood loss (mL): 700 Complications: None Post-op Plan: To recovery
--- NOTE | 2025-07-03 15:32 | PM.OP ---
Operative Report Date of procedure: July 03, 2025 Pre-op diagnosis: Term , breech presentation, history of three prior deliveries, desire for permanent sterilization Post-op diagnosis: Same Post-op findings: Live in breech presentation, adhesions present, bilateral fallopian tubes successfully removed in their entirety Procedure done: Repeat low transverse section (fourth delivery), bilateral total salpingectomy, delivery of viable infant in breech presentation Surgeon: David Edwards MD Estimated blood loss: 700 Complications: None Findings: Live baby with normal scores Brief History: This patient is a 39-year-old at 39 weeks with breech presentation and history of three prior deliveries presenting for repeat delivery. Patient has history of polysubstance abuse including amphetamine abuse and is currently on Suboxone maintenance therapy. Patient requested permanent sterilization via bilateral total salpingectomy. Procedure: After informed consent was obtained, the patient was taken to the operating room where anesthesia was administered. The patient continued her baseline Suboxone dosing perioperatively. The abdomen was prepped and draped in the usual sterile fashion. A Pfannenstiel skin incision was made and carried through the subcutaneous tissue. The fascia was incised transversely and extended laterally with Pratt scissors. The rectus muscles were in the midline. The peritoneum was entered sharply. Adhesions were encountered and carefully lysed to gain access to the lower uterine segment. A low transverse hysterotomy was performed with sharp dissection and extended bluntly. The was delivered in breech presentation with vigorous cry and handed to the pediatric team. Cord blood was obtained as indicated. The placenta was delivered manually and the uterine cavity was explored and cleared of all clots and membranes. The uterine incision was closed in two layers using running suture technique. Hemostasis was confirmed. Bilateral total salpingectomy was then performed for permanent sterilization. Each fallopian tube was identified and traced from the fimbriated end to the cornual insertion. The mesosalpinx was clamped, cut, with the ligasure vasosealer device along the entire length of each tube. Both tubes were removed in their entirety and sent to pathology. Hemostasis was confirmed bilaterally. The peritoneum was closed. Hemostasis of the abdominal wall was confirmed. The fascia was closed with running suture. The subcutaneous layer was irrigated. The skin was closed with a subcuticular Giancarlo needle. The patient tolerated the procedure well. Sponge, needle, and instrument counts were correct. The patient was taken to the recovery room in stable condition.
[2025-07-03] MEDS: tranexamic acid 1,000 MG/100 ML PREMIX 600 MG IV (15:40)
--- NOTE | 2025-07-03 16:15 | ANE.PACU2 ---
Inpatient post-anesthesia follow up: Airway intact: Yes Vital signs: Temperature 98.6 F Pulse Rate 82 Respiratory Rate 18 Blood Pressure 111/58 Pulse Oximetry 99 Oxygen Delivery Me thod Room Air Oxygen Flow Rate Fraction of Inspir ed Oxygen Hydration adequate: Yes Nausea and vomiting: No Pain level: 3 Mental status: Baseline Additional Comments: hemorrhage. Please read IntraOp record.
[2025-07-03] MEDS: ondansetron 2 mg/ML SDV 2 mL 4 MG IVP (17:38)
[2025-07-03 18:05] LABS: Hematocrit 22.2 % (36-47); Hemoglobin 7.00 g/dL (11.27-16.99); Mean Corpuscular HGB Conc 31.5 g/dL (30-55); Mean Corpuscular Hemoglobin 28.1 pg (27-33); Mean Corpuscular Volume 89.2 fl (85-98); Nucleated Red Blood Cells % 0 %; Platelet Count 262 10^3/cmm (157-399); Red Blood Count 2.49 10^6/uL (3.85-5.65); White Blood Count 10.04 10^3/uL (3.29-11.43)
[2025-07-03] MEDS: HYDROcodone-acetaminophen 5-325 mg Tablet 1 TAB PO ×2 (19:20→23:45)
--- NOTE | 2025-07-03 20:03 | P.PN_ITS ---
Subjective 2 Subjective: Chief Complaint: hemorrhage status post repeat section day 0 History of Present Illness: 39-year-old patient, postoperative day 0 following repeat section with permanent sterilization, developed hemorrhage with continued vaginal blood loss despite initial medical management. Patient received sequential uterotonic therapy including methylergometrine x2, oxytocin 40u, and misoprostol 600mcg. Despite administration of these first-line and second-line uterotonic agents, bleeding persisted. Laboratory Data: Hemoglobin decreased to 7 g/dL, indicating significant blood loss requiring transfusion support. Interventions: Uterotonic agents administered: Methylergometrine, oxytocin, and misoprostol as sequential therapy for uterine atony Blood product transfusion: 2 units packed red blood cells transfused for hemoglobin of 7 g/dL Intrauterine device placement: Vanessa vacuum-induced hemorrhage control device successfully placed Prophylaxis antibiotics Vitals/I&O/Wt Last Vital Signs Temp 97.5 F L 07/03/25 18:37 Pulse 99 07/03/25 20:00 BP 120/61 07/03/25 19:58 Pulse Ox 97 07/03/25 20:00 O2 Del Method Room Air 07/03/25 10:37 07/03/25 07/03/25 07/03/25 06:59 14:59 22:59 Intake Total 1600 / 1600 Output Total 700 / 700 Balance 900 / 900 Weight last 48 hrs Weight 188 lb Physical Exam 2 Urinary Catheter Management: Lozoya Latex Free: Cath Placed During This Visit: yes Urinary Catheter Date of Insertion: 07/03/25 Urinary Catheter Time of Insertion: 13:30 Data 07/03/25 17:48 A&P Assessment and plan 1. Other immediate hemorrhage: Plan: Response to Treatment: Following placement of the Vanessa device, hemorrhage was successfully controlled. Blood pressures normalized and returned to baseline parameters. Once hemodynamic stability was confirmed, pain management was initiated to address postoperative discomfort. Current Status: Patient is hemodynamically stable with controlled bleeding. Blood pressure within normal limits. Pain adequately managed with analgesics. Patient continues to be monitored closely for any recurrence of bleeding or signs of hemodynamic instability. Plan: Continue close hemodynamic monitoring per PPH management protocols Monitor for signs of recurrent bleeding Serial hemoglobin checks to assess for ongoing blood loss and transfusion response Continue pain management as needed Monitor vital signs closely Conciser antibiotics Assess for complications including infection, thromboembolism, and transfusion- related complications Multidisciplinary team involvement as indicated for ongoing care PDMP PDMP Reviewed: Not Reviewed Attestations 2 Medical Necessity Statement*: Medical necessity: Post op, PPH, acute symptomatic anemia, opioid abuse Coding Level of Care Code Acute Code for Chg Fwd Diagnoses Other immediate hemorrhage O72.1 hemorrhage type: other immediate
--- NOTE | 2025-07-03 20:33 | PC.NURSE ---
07/03/25 at 1543: Rosalia Herman INSERT CUTTER states she is giving albumin and 5 units of pitocin.
--- NOTE | 2025-07-03 20:53 | PC.NURSE ---
Received orders from Dr. Edwards for 2 units of blood. Emergency release blood transfusion started at 1837.
--- NOTE | 2025-07-03 21:01 | PC.NURSE ---
07/03/25 at 1835: Dr. Edwards at bedside placing Vanessa.
[2025-07-03] MEDS: ceFAZolin 1,000 mg SDV 1000 MG IVP (22:24)
[2025-07-03] MEDS: metroNIDAZOLE IV 500 MG/100 ML PREMIX 100 MG IV (22:45)
[2025-07-04] VITALS (115 sets, daily range): BP systolic 96–142; BP diastolic 53–83; PULSE 78–99; RESP 16–18; TEMP 36.6–37; O2SAT 93–99
[2025-07-04 00:06] LABS: Hematocrit 25.1 % (36-47); Hemoglobin 8.30 g/dL (11.27-16.99); Mean Corpuscular HGB Conc 33.1 g/dL (30-55); Mean Corpuscular Hemoglobin 28.2 pg (27-33); Mean Corpuscular Volume 85.4 fl (85-98); Platelet Count 194 10^3/cmm (157-399); Red Blood Count 2.94 10^6/uL (3.85-5.65); White Blood Count 10.04 10^3/uL (3.29-11.43)
[2025-07-04 03:27] LABS: Hematocrit 22.7 % (36-47); Hemoglobin 7.50 g/dL (11.27-16.99); Mean Corpuscular HGB Conc 33.0 g/dL (30-55); Mean Corpuscular Hemoglobin 28.4 pg (27-33); Mean Corpuscular Volume 86.0 fl (85-98); Platelet Count 179 10^3/cmm (157-399); Red Blood Count 2.64 10^6/uL (3.85-5.65); White Blood Count 9.28 10^3/uL (3.29-11.43)
[2025-07-04] MEDS: metroNIDAZOLE IV 500 MG/100 ML PREMIX 100 MG IV ×4 (04:20→20:31)
[2025-07-04] MEDS: PRENATAL VIT NO.130/IRON/FOLIC 1 EACH TABLET PO (05:06)
[2025-07-04] MEDS: ceFAZolin 1,000 mg SDV 1000 MG IVP ×2 (06:32→12:28)
--- NOTE | 2025-07-04 07:59 | P.PN_ITS ---
Subjective 2 Subjective: Rough day, POD#1. PPH after RCS. sp 2 units PRBCs. Feels ok. NOt walking yet, catheter in place. VANESSA still in. Vitals/I&O/Wt Last Vital Signs Temp 98.7 F 07/03/25 22:18 Pulse 87 07/04/25 07:55 Resp 16 07/03/25 22:18 BP 128/83 07/04/25 07:52 Pulse Ox 99 07/04/25 07:55 O2 Del Method Room Air 07/03/25 10:37 07/03/25 07/04/25 07/04/25 22:59 06:59 14:59 Intake Total 3050.000 / 3050.000 100 / 3150.000 Output Total 1000 / 1000 500 / 1500 Balance 2050.000 / 2050.000 -400 / 1650.000 Weight last 48 hrs Weight 188 lb Physical Exam 2 Narrative: Appearance: grossly normal Attitude: calm and engaged, appropriate eye contact Const: no acute distress, oriented x3 cooperative Chest: Symmetrical chest wall rise Resp: normal respiratory effort, clear to auscultation bilaterally Cardio: regular rate and regular rhythm GI: Soft to palpation, wound dressed no leaking outside it, Non Tender, no Guarding Extremity: normal inspection, 1+ pedal edema Neuro: oriented x3 and moves all extremities, speech normal Psych: mental status grossly normal, and Normal thought process present Skin: no rashes or lesions noted Urinary Catheter Management: Lozoya Latex Free: Cath Placed During This Visit: yes Reason for Continuing Indwelling Catheter: Required Immobilization for Trauma or Surgery or Anesthesia Urinary Catheter Date of Insertion: 07/03/25 Urinary Catheter Time of Insertion: 13:30 Data 07/04/25 03:25 A&P Assessment and plan 1. PPH ( hemorrhage): HGB stable after 2 units, repeat at noon. Vanessa to come out per protocol. 2. delivery delivered: Continue post op care. Taking her subutex. Baby at [place]. PDMP PDMP Reviewed: Not Reviewed Attestations 2 Medical Necessity Statement*: NA Coding Level of Care Code Acute Code for Chg Fwd Diagnoses PPH ( hemorrhage) O72.1 delivery delivered O82
[2025-07-04] MEDS: HYDROcodone-acetaminophen 10-325 mg Tablet 1 TAB PO ×3 (08:00→17:09)
[2025-07-04] MEDS: ferrous sulfate EC 325 mg Tablet PO ×2 (08:01→16:06)
[2025-07-04 12:47] LABS: Hematocrit 22.5 % (36-47); Hemoglobin 7.40 g/dL (11.27-16.99)
[2025-07-04 17:45] LABS: High Risk PP Hemorrhage BBK Notified
[2025-07-04] MEDS: HYDROcodone-acetaminophen 5-325 mg Tablet 1 TAB PO (23:42)
[2025-07-05] MEDS: PRENATAL VIT NO.130/IRON/FOLIC 1 EACH TABLET PO (05:37)
[2025-07-05] MEDS: HYDROcodone-acetaminophen 5-325 mg Tablet 1 TAB PO ×2 (05:37→11:49)
[2025-07-05 07:12] VITALS: BP 136/75; PULSE 80
--- NOTE | 2025-07-05 07:47 | PC.NURSE ---
07/04/25 2773 KAELA BONDS RECIEVED ORDER TO REMOVE ORION PER PROTOCOL. THIS RAILCAR MECHANIC DISCONNECTED SUCTION AND EDUCATED HER ON THE PROCESS AND SHE VOICES UNDERSTANDING. 4233 THIS RAILCAR MECHANIC EXPLAINED TO MARCIE THAT WE WOULD REMOVE THE WATER FROM THE BULB AND THEN REMOVE ORION ITSELF. THIS WAS DONE WITHOUT DIFFICULTY. PATIENT TOLERATED PROCEDURE WELL.
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
[2025-07-05 11:50] VITALS: BP 169/80; PULSE 103
== END 2025-07-05 12:20 | disposition home or self-care (01) | DRG 539 ==
PROVIDERS: Obstetrics & Gynecology; Admitting Provider Obstetrics & Gynecology; PCP Obstetrics & Gynecology; Visit Provider Obstetrics & Gynecology
PROC: 10D00Z1 Extraction of Products of Conception, Low, Open Approach (ICD-10-PCS; CPT 59514; principal; 2025-07-03 12:00)
DX: O34.211 Maternal care for low transverse scar from previous cesarean delivery (principal); N85.8 Other specified noninflammatory disorders of uterus; O32.1XX0 Maternal care for breech presentation, not applicable or unspecified; O72.1 Other immediate postpartum hemorrhage; Z3A.39 39 weeks gestation of pregnancy; Z37.0 Single live birth; Z30.2 Encounter for sterilization
CPT/HCPCS: 36415; 36430; 51702; 59409; 80306; 85014; 85018; 85025; 85027; 86850; 86900; 86920; 88302; 96372; J0690; J1885; J2210; J2371; J2405; J2590; J2765; J3490; J7120; J7121; J9999; P9016; P9045